=== PATIENT | male | born 1940 | race African-American/Black ===

== ENCOUNTER → 2016-07-24 | Outpatient (CLI) | payer OTHER ==
[~2016-07-24] MED LIST: LISI-285 PO; SIMV-8; TAMS0.4C36 PO
[2016-07-24 12:12] LABS: Basophils # (auto) 0 uL; Basophils % (auto) 0.5 % (0.0-2.0); Eosinophils # (auto) 0.2 uL; Eosinophils % (auto) 3.5 % (0.0-7.0); Hematocrit 40.3 % (41.0-53.0); Hemoglobin 12.8 g/dL (13.5-17.5); Lymphocytes # (auto) 2.3 uL; Lymphocytes % (auto) 41.5 % (10.0-50.0); Mean Corpuscular Hemoglobin 27.5 pg (28.0-32.0); Mean Corpuscular Hgb Conc. 31.9 g/dL (32.0-36.0); Mean Corpuscular Volume 86.2 fL (80.0-100.0); Mean Platelet Volume 8.4 fL (7.4-10.4); Monocytes # (auto) 0.6 uL; Monocytes % (auto) 10.8 % (0.0-12.0); Neutrophils # (auto) 2.4 uL; Neutrophils % (auto) 43.7 % (37.0-80.0); Platelet Count (auto) 344 10^3/uL (140-450); Red Cell Distribution Width 14.6 % (11.6-16.0); White Blood Cell 5.5 10^3/uL (4.4-10.8)
[2016-07-24 12:41] LABS: Urine Bilirubin Negative (Negative); Urine Blood Negative /uL (Negative); Urine Color Yellow (Yellow); Urine Glucose Normal (Normal); Urine Ketone Negative (Negative); Urine Nitrite Negative (Negative); Urine RBC <1 /hpf (0 - 3); Urine Squamous Epithelial Cell FEW /hpf (<5); Urine Urobilinogen Normal (Negative); Urine pH 5.5 (5.0-8.0)
[2016-07-24 12:43] LABS: Albumin 3.7 g/dL (3.4-5.0); BUN/Creatinine Ratio 13.1; Bilirubin, Total 0.4 mg/dL (0.2-1.0); Calcium 9.3 mg/dL (8.5-10.1); Potassium 3.5 mmol/L (3.5-5.1); Total Protein 7.9 g/dL (6.4-8.2)
== END | disposition home or self-care (01) ==
LOC: LAB 10:59
DX: I10 Essential (primary) hypertension (principal); Z12.5 Encounter for screening for malignant neoplasm of prostate; Z12.11 Encounter for screening for malignant neoplasm of colon
CPT/HCPCS: 36415; 80053; 80061; 81001; 84443; 85025; 85652

== ENCOUNTER → 2016-08-01 | Outpatient (CLI) | payer OTHER ==
[~2016-08-01] MED LIST changes: +ASPI81TA27 PO
[2016-08-01 10:37] LABS: INR 0.97 (0.9-1.15)
[2016-08-01 10:44] LABS: Basophils # (auto) 0 uL; Basophils % (auto) 0.5 % (0.0-2.0); Eosinophils # (auto) 0.2 uL; Eosinophils % (auto) 3.6 % (0.0-7.0); Hematocrit 40.3 % (41.0-53.0); Hemoglobin 12.7 g/dL (13.5-17.5); Lymphocytes # (auto) 2.1 uL; Lymphocytes % (auto) 40.2 % (10.0-50.0); Mean Corpuscular Hemoglobin 27.3 pg (28.0-32.0); Mean Corpuscular Hgb Conc. 31.4 g/dL (32.0-36.0); Mean Corpuscular Volume 86.9 fL (80.0-100.0); Mean Platelet Volume 8.4 fL (7.4-10.4); Monocytes # (auto) 0.6 uL; Monocytes % (auto) 11.9 % (0.0-12.0); Neutrophils # (auto) 2.3 uL; Neutrophils % (auto) 43.8 % (37.0-80.0); Platelet Count (auto) 398 10^3/uL (140-450); Red Cell Distribution Width 14.7 % (11.6-16.0); White Blood Cell 5.3 10^3/uL (4.4-10.8)
== END | disposition home or self-care (01) ==
LOC: LAB 09:13
PROVIDERS: ATTEND Internal Medicine Gastroenterology
DX: Z01.812 Encounter for preprocedural laboratory examination (principal)
CPT/HCPCS: 36415; 85025; 85610; 85730

== ENCOUNTER → 2016-08-05 | Day surgery (SDC) | payer OTHER ==
[~2016-08-05] VITALS: Ht 175.3 cm; Wt 95.3 kg
[~2016-08-05] MED LIST changes: +EPINEPHrine HCL 1 MG/10 ML SYRG ONE; +SODIUM CHLORIDE LOCK 10 ML ONE; -TAMS0.4C36 PO; +diphenhdrAMINE HCL 50 MG/1 ML VL ONE
[2016-08-05] MEDS: MIDAZOLAM HCL 5 MG/ML-1ML VIAL ONE ×2 (10:47→10:59)
[2016-08-05] MEDS: fentaNYL CITRATE 100 MCG/2 ML VL ONE ×2 (10:47→10:59)
[2016-08-05 11:40] VITALS: BP 135/72
== END | disposition home or self-care (01) ==
LOC: GI 08:40
PROVIDERS: ATTEND Internal Medicine Gastroenterology
DX: Z12.11 Encounter for screening for malignant neoplasm of colon (principal); K63.5 Polyp of colon; K57.30 Diverticulosis of large intestine without perforation or abscess without bleeding; K64.8 Other hemorrhoids
CPT/HCPCS: 45380; 45381; J2250

== ENCOUNTER → 2016-08-20 | Outpatient (CLI) | payer OTHER ==
[~2016-08-20] MED LIST changes: -EPINEPHrine HCL 1 MG/10 ML SYRG ONE; -SODIUM CHLORIDE LOCK 10 ML ONE; -diphenhdrAMINE HCL 50 MG/1 ML VL ONE
== END | disposition home or self-care (01) ==
LOC: XY 08:54
PROVIDERS: ATTEND Internal Medicine Cardiovascular Disease
DX: R07.9 Chest pain, unspecified (principal)
CPT/HCPCS: 78452; 93017; 93306; 96374; A9500

== ENCOUNTER → 2016-09-12 | Outpatient (CLI) | payer OTHER | END | disposition home or self-care (01) | LOC: LAB 12:01 | DX: K76.89 Other specified diseases of liver (principal) | CPT/HCPCS: 36415; 82565; 84520 ==

== ENCOUNTER 2017-02-12 08:37 | Emergency (ER) | payer OTHER ==
[~2017-02-12] VITALS: Ht 175.3 cm; Wt 96.2 kg
[2017-02-12] MEDS ORDERED: SODIUM CHLORIDE 0.9% 1,000 ML IVB ONE (10:17)
[2017-02-12 10:21] LABS: Basophils # (auto) 0 uL; Basophils % (auto) 0.5 % (0.0-2.0); CONDITION Y; Eosinophils # (auto) 0.2 uL; Eosinophils % (auto) 5.2 % (0.0-7.0); Hematocrit 36.1 % (41.0-53.0); Hemoglobin 12.2 g/dL (13.5-17.5); Lymphocytes # (auto) 1.9 uL; Lymphocytes % (auto) 40.8 % (10.0-50.0); Mean Corpuscular Hemoglobin 28.7 pg (28.0-32.0); Mean Corpuscular Hgb Conc. 33.8 g/dL (32.0-36.0); Monocytes # (auto) 0.7 uL; Monocytes % (auto) 14.3 % (0.0-12.0); Neutrophils # (auto) 1.8 uL; Neutrophils % (auto) 39.2 % (37.0-80.0); Platelet Count (auto) 306 10^3/uL (140-450); Red Cell Distribution Width 14.8 % (11.6-16.0); White Blood Cell 4.7 10^3/uL (4.4-10.8)
[2017-02-12 10:47] LABS: Albumin 3.5 g/dL (3.4-5.0); BUN/Creatinine Ratio 13.1; Calcium 8.8 mg/dL (8.5-10.1); Potassium 3.6 mmol/L (3.5-5.1)
[2017-02-12 10:50] LABS: Bilirubin, Total 0.4 mg/dL (0.2-1.0); Total Protein 7.4 g/dL (6.4-8.2)
[2017-02-12 11:20] VITALS: BP 122/75
[2017-02-12 12:19] LABS: Magnesium 2.5 mg/dL (1.6-2.6)
== END 2017-02-12 13:39 | disposition home or self-care (01) ==
LOC: ER 08:37
DX: K62.5 Hemorrhage of anus and rectum (principal); K57.30 Diverticulosis of large intestine without perforation or abscess without bleeding; K59.01 Slow transit constipation; E78.5 Hyperlipidemia, unspecified; I10 Essential (primary) hypertension
CPT/HCPCS: 36415; 71020; 74176; 80053; 82962; 83690; 83735; 84443; 85025; 96360

== ENCOUNTER → 2017-05-19 | Outpatient (CLI) | payer OTHER ==
[2017-05-19 13:00] LABS: BUN/Creatinine Ratio 13.2; Calcium 9.1 mg/dL (8.5-10.1); Potassium 4.1 mmol/L (3.5-5.1)
== END | disposition home or self-care (01) ==
LOC: LAB 11:16
PROVIDERS: ATTEND Internal Medicine
DX: I12.9 Hypertensive chronic kidney disease with stage 1 through stage 4 chronic kidney disease, or unspecified chronic kidney disease (principal); N18.3 Chronic kidney disease, stage 3 (moderate); N40.0 Benign prostatic hyperplasia without lower urinary tract symptoms
CPT/HCPCS: 36415; 80048; 83970; 84153; 84550

== ENCOUNTER → 2017-12-08 | Outpatient (CLI) | payer OTHER ==
[2017-12-08 10:38] LABS: Basophils # (auto) 0 uL; Basophils % (auto) 0.8 % (0.0-2.0); Eosinophils # (auto) 0.3 uL; Eosinophils % (auto) 5.1 % (0.0-7.0); Hematocrit 37.9 % (41.0-53.0); Hemoglobin 12.6 g/dL (13.5-17.5); Lymphocytes # (auto) 2.5 uL; Lymphocytes % (auto) 43.5 % (10.0-50.0); Mean Corpuscular Hemoglobin 28.3 pg (28.0-32.0); Mean Corpuscular Hgb Conc. 33.1 g/dL (32.0-36.0); Mean Corpuscular Volume 85.5 fL (80.0-100.0); Monocytes # (auto) 0.6 uL; Monocytes % (auto) 10.8 % (0.0-12.0); Neutrophils # (auto) 2.3 uL; Neutrophils % (auto) 39.8 % (37.0-80.0); Platelet Count (auto) 328 10^3/uL (140-450); Red Blood Cells 4.44 10^6/uL (4.5-5.90); Red Cell Distribution Width 14.9 % (11.8-14.3); White Blood Cell 5.9 10^3/uL (4.4-10.8)
[2017-12-08 10:47] LABS: Urine Bacteria FEW /hpf (None Seen); Urine Blood Negative /uL (Negative); Urine Mucus FEW (None Seen); Urine Specific Gravity 1.021 (1.001-1.035); Urine WBC 7 /hpf (0 - 3)
[2017-12-08 11:38] LABS: Albumin 3.9 g/dL (3.4-5.0); BUN/Creatinine Ratio 13.6; Bilirubin, Total 0.5 mg/dL (0.2-1.0); Calcium 9.6 mg/dL (8.5-10.1); Potassium 3.7 mmol/L (3.5-5.1); Total Protein 8.4 g/dL (6.4-8.2); Uric Acid 9.5 mg/dL (3.5-7.2)
== END | disposition home or self-care (01) ==
LOC: LAB 10:09
PROVIDERS: ATTEND Internal Medicine
DX: E78.00 Pure hypercholesterolemia, unspecified (principal); I12.9 Hypertensive chronic kidney disease with stage 1 through stage 4 chronic kidney disease, or unspecified chronic kidney disease; N18.3 Chronic kidney disease, stage 3 (moderate); E78.5 Hyperlipidemia, unspecified
CPT/HCPCS: 36415; 80053; 80061; 81001; 82043; 82785; 84439; 84443; 84550; 85025; 85652

== ENCOUNTER 2018-01-14 08:01 | Emergency (ER) | payer OTHER ==
[~2018-01-14] VITALS: Ht 175.3 cm; Wt 97.5 kg
[2018-01-14 08:07] VITALS: BP 151/88
[2018-01-14 09:17] LABS: Basophils # (auto) 0 uL; Basophils % (auto) 0.6 % (0.0-2.0); Eosinophils # (auto) 0.4 uL; Eosinophils % (auto) 6.5 % (0.0-7.0); Hematocrit 38.5 % (41.0-53.0); Hemoglobin 12.6 g/dL (13.5-17.5); Lymphocytes # (auto) 2.9 uL; Lymphocytes % (auto) 44.3 % (10.0-50.0); Mean Corpuscular Hemoglobin 28.2 pg (28.0-32.0); Mean Corpuscular Hgb Conc. 32.6 g/dL (32.0-36.0); Mean Corpuscular Volume 86.5 fL (80.0-100.0); Monocytes # (auto) 0.8 uL; Monocytes % (auto) 12.6 % (0.0-12.0); Neutrophils # (auto) 2.4 uL; Nucleated Red Blood Cells % 0.1 %; Platelet Count (auto) 325 10^3/uL (140-450); Red Blood Cells 4.46 10^6/uL (4.5-5.90); White Blood Cell 6.6 10^3/uL (4.4-10.8)
[2018-01-14 09:34] LABS: Albumin 3.7 g/dL (3.4-5.0); Bilirubin, Total 0.4 mg/dL (0.2-1.0); Calcium 8.7 mg/dL (8.5-10.1); Potassium 3.9 mmol/L (3.5-5.1); Total Protein 8.4 g/dL (6.4-8.2)
== END 2018-01-14 09:57 | disposition home or self-care (01) ==
LOC: ER 08:03
DX: J40 Bronchitis, not specified as acute or chronic (principal); J32.9 Chronic sinusitis, unspecified; D64.9 Anemia, unspecified; I10 Essential (primary) hypertension; E78.5 Hyperlipidemia, unspecified
CPT/HCPCS: 36415; 71046; 80053; 85025; 93005

== ENCOUNTER → 2018-05-19 | Outpatient (CLI) | payer OTHER | END | disposition home or self-care (01) | LOC: LAB 11:47 | PROVIDERS: ATTEND Internal Medicine | DX: D64.9 Anemia, unspecified (principal) | CPT/HCPCS: 82270 ==

== ENCOUNTER → 2018-05-27 | Outpatient (CLI) | payer OTHER ==
[2018-05-27 11:20] LABS: Basophils # (auto) 0 uL; Basophils % (auto) 0.2 % (0.0-2.0); Eosinophils # (auto) 0.3 uL; Eosinophils % (auto) 5.6 % (0.0-7.0); Hematocrit 38.7 % (41.0-53.0); Hemoglobin 12.6 g/dL (13.5-17.5); Mean Corpuscular Hemoglobin 27.6 pg (28.0-32.0); Mean Corpuscular Hgb Conc. 32.5 g/dL (32.0-36.0); Monocytes # (auto) 0.7 uL; Monocytes % (auto) 13.3 % (0.0-12.0); Neutrophils # (auto) 2.4 uL; Neutrophils % (auto) 43.9 % (37.0-80.0); Platelet Count (auto) 326 10^3/uL (140-450); Red Blood Cells 4.56 10^6/uL (4.5-5.90); Red Cell Distribution Width 15.2 % (11.8-14.3); White Blood Cell 5.4 10^3/uL (4.4-10.8)
[2018-05-27 11:37] LABS: Albumin 3.7 g/dL (3.4-5.0); Calcium 9.1 mg/dL (8.5-10.1); Potassium 3.4 mmol/L (3.5-5.1); Uric Acid 8.3 mg/dL (3.5-7.2)
[2018-05-27 11:41] LABS: BUN/Creatinine Ratio 12.5; Bilirubin, Total 0.4 mg/dL (0.2-1.0); Total Protein 8.3 g/dL (6.4-8.2)
== END | disposition home or self-care (01) ==
LOC: LAB 10:46
PROVIDERS: ATTEND Internal Medicine
DX: N40.0 Benign prostatic hyperplasia without lower urinary tract symptoms (principal); K76.0 Fatty (change of) liver, not elsewhere classified; I12.9 Hypertensive chronic kidney disease with stage 1 through stage 4 chronic kidney disease, or unspecified chronic kidney disease; N18.3 Chronic kidney disease, stage 3 (moderate)
CPT/HCPCS: 36415; 80053; 84153; 84550; 85025

== ENCOUNTER → 2019-07-08 | Outpatient (CLI) | payer OTHER ==
[~2019-07-08] MED LIST changes: +ASPI-404 PO; -ASPI81TA27 PO
[2019-07-08 11:09] LABS: Basophils # (auto) 0 uL; Basophils % (auto) 0.3 % (0.0-2.0); Eosinophils # (auto) 0.2 uL; Eosinophils % (auto) 4.6 % (0.0-7.0); Hemoglobin 12.7 g/dL (13.5-17.5); Lymphocytes # (auto) 2.2 uL; Lymphocytes % (auto) 44.8 % (10.0-50.0); Mean Corpuscular Hgb Conc. 33.3 g/dL (32.0-36.0); Mean Corpuscular Volume 84.1 fL (80.0-100.0); Monocytes # (auto) 0.5 uL; Monocytes % (auto) 10.5 % (0.0-12.0); Neutrophils % (auto) 39.8 % (37.0-80.0); Nucleated Red Blood Cells % 0.1 %; Platelet Count (auto) 363 10^3/uL (140-450); Red Blood Cells 4.52 10^6/uL (4.5-5.90); Red Cell Distribution Width 15.6 % (11.8-14.3)
[2019-07-08 11:31] LABS: Urine Bacteria NONE SEEN /hpf (None Seen); Urine Blood Negative /uL (Negative); Urine Specific Gravity 1.007 (1.001-1.035); Urine WBC 1 /hpf (0 - 3)
[2019-07-08 11:51] LABS: Potassium 3.8 mmol/L (3.5-5.1)
[2019-07-08 11:59] LABS: Albumin 3.9 g/dL (3.4-5.0); BUN/Creatinine Ratio 13.5; Bilirubin, Total 0.4 mg/dL (0.2-1.0); Calcium 9.4 mg/dL (8.5-10.1); Magnesium 2.7 mg/dL (1.6-2.6); Total Protein 8.4 g/dL (6.4-8.2)
== END | disposition home or self-care (01) ==
LOC: LAB 10:46
PROVIDERS: ATTEND Internal Medicine
DX: I10 Essential (primary) hypertension (principal); R35.1 Nocturia
CPT/HCPCS: 36415; 80053; 80061; 81001; 82043; 83036; 83735; 84439; 84443; 85025; 85652

== ENCOUNTER 2019-11-29 07:30 | Emergency (ER) | payer OTHER ==
[~2019-11-29] VITALS: Ht 175.3 cm; Wt 94.8 kg
[2019-11-29] MEDS ORDERED: AMLO5TAB15 PO (08:03)
[2019-11-29] MEDS ORDERED: LOSA-69 PO (08:03)
[2019-11-29] MEDS ORDERED: HCTZ25T PO (08:03)
[2019-11-29 08:30] LABS: Basophils # (auto) 0 10 ^3/uL (0-0.2); Basophils % (auto) 0.4 % (0.0-2.0); Eosinophils # (auto) 0.6 10 ^3/uL (0-0.8); Mean Corpuscular Volume 82.8 fL (80.0-100.0); Monocytes # (auto) 0.7 10 ^3/uL (0-1.3); Nucleated Red Blood Cells % 0.1 %; Red Cell Distribution Width 15.5 % (11.8-14.3)
[2019-11-29 08:31] LABS: Eosinophils % (auto) 10.9 % (0.0-7.0); Hematocrit 34.9 % (41.0-53.0); Hemoglobin 11.6 g/dL (13.5-17.5); Lymphocytes % (auto) 37.4 % (10.0-50.0); Mean Corpuscular Hemoglobin 27.5 pg (28.0-32.0); Mean Corpuscular Hgb Conc. 33.2 g/dL (32.0-36.0); Monocytes % (auto) 13.1 % (0.0-12.0); Neutrophils % (auto) 38.2 % (37.0-80.0); Platelet Count (auto) 318 10^3/uL (140-450); Red Blood Cells 4.22 10^6/uL (4.5-5.90); White Blood Cell 5.3 10^3/uL (4.4-10.8)
[2019-11-29 08:39] LABS: Albumin 3.6 g/dL (3.4-5.0); Calcium 8.7 mg/dL (8.5-10.1)
[2019-11-29 08:43] LABS: BUN/Creatinine Ratio 10.1; Bilirubin, Total 0.2 mg/dL (0.2-1.0); Total Protein 8.1 g/dL (6.4-8.2)
[2019-11-29 08:46] LABS: Potassium 2.9 mmol/L (3.5-5.1)
[2019-11-29] MEDS ORDERED: POTASSIUM EFFERVESENT TAB 25 MEQ PO ONE (09:00)
[2019-11-29] MEDS ORDERED: cloNIDine HCL 0.1 MG TAB PO ONE (09:00)
[2019-11-29] MEDS ORDERED: cefTRIAXone 1GM/50ML D5W 50 ML IV ONE (10:00)
[2019-11-29 10:13] LABS: Urine Bacteria FEW /hpf (None Seen); Urine Blood Negative /uL (Negative); Urine Specific Gravity 1.003 (1.001-1.035); Urine WBC 4 /hpf (0 - 3)
[2019-11-29 10:18] VITALS: BP 143/74
== END 2019-11-29 10:47 | disposition home or self-care (01) ==
LOC: ER 07:30
DX: I10 Essential (primary) hypertension (principal); E87.6 Hypokalemia; J40 Bronchitis, not specified as acute or chronic; E78.5 Hyperlipidemia, unspecified
CPT/HCPCS: 36415; 71046; 80053; 81001; 83880; 84484; 85025; 93005; 96365; 99285; J0696; 96367

== ENCOUNTER → 2019-12-03 | Outpatient (CLI) | payer OTHER ==
[~2019-12-03] MED LIST changes: +AMLO5TAB15 PO; +HCTZ25T PO; -LISI-285 PO; +LOSA-69 PO
== END | disposition home or self-care (01) ==
LOC: LAB 11:55
PROVIDERS: ATTEND Internal Medicine
DX: E78.6 Lipoprotein deficiency (principal); I10 Essential (primary) hypertension
CPT/HCPCS: 36415; 84132

== ENCOUNTER → 2019-12-06 | Emergency (ER) | payer OTHER ==
[~2019-12-06] VITALS: Ht 175.3 cm; Wt 95.3 kg
[~2019-12-06] MED LIST changes: +methylPREDNISolone SOD SUCC 125 MG/2 ML VL IM ONE
[2019-12-06 05:35] VITALS: BP 143/61
== END | disposition home or self-care (01) ==
LOC: ER 02:59
DX: J40 Bronchitis, not specified as acute or chronic (principal); I10 Essential (primary) hypertension; E78.5 Hyperlipidemia, unspecified
CPT/HCPCS: 71046; 96372; 99283; J2930

== ENCOUNTER → 2020-02-24 | Outpatient (CLI) | payer OTHER ==
[~2020-02-24] MED LIST changes: -ASPI-404 PO; +ASPI-543 PO; -methylPREDNISolone SOD SUCC 125 MG/2 ML VL IM ONE
== END | disposition home or self-care (01) ==
LOC: XYW 09:41
PROVIDERS: ATTEND Internal Medicine
DX: I07.1 Rheumatic tricuspid insufficiency (principal); I10 Essential (primary) hypertension
CPT/HCPCS: 93306

== ENCOUNTER → 2020-03-07 | Outpatient (CLI) | payer OTHER ==
[2020-03-07 09:19] LABS: Basophils # (auto) 0 10 ^3/uL (0-0.2); Basophils % (auto) 0.3 % (0.0-2.0); Eosinophils # (auto) 0.3 10 ^3/uL (0-0.8); Eosinophils % (auto) 6.3 % (0.0-7.0); Hemoglobin 11.2 g/dL (13.5-17.5); Lymphocytes % (auto) 42.4 % (10.0-50.0); Mean Corpuscular Hemoglobin 27.3 pg (28.0-32.0); Mean Corpuscular Hgb Conc. 33.1 g/dL (32.0-36.0); Mean Corpuscular Volume 82.6 fL (80.0-100.0); Monocytes # (auto) 0.6 10 ^3/uL (0-1.3); Monocytes % (auto) 13.2 % (0.0-12.0); Neutrophils # (auto) 1.8 10 ^3/uL (1.6-8.6); Neutrophils % (auto) 37.8 % (37.0-80.0); Nucleated Red Blood Cells % 0.1 %; Platelet Count (auto) 331 10^3/uL (140-450); Red Blood Cells 4.12 10^6/uL (4.5-5.90); Red Cell Distribution Width 15.3 % (11.8-14.3); White Blood Cell 4.7 10^3/uL (4.4-10.8)
[2020-03-07 09:51] LABS: Albumin 3.7 g/dL (3.4-5.0); Calcium 9.2 mg/dL (8.5-10.1); Potassium 3.6 mmol/L (3.5-5.1)
[2020-03-07 09:55] LABS: BUN/Creatinine Ratio 16.4; Bilirubin, Total 0.4 mg/dL (0.2-1.0); Total Protein 7.9 g/dL (6.4-8.2); Uric Acid 8.1 mg/dL (3.5-7.2)
[2020-03-07 10:02] LABS: Prostate Specific Antigen 1.37 ng/mL (0.0-4.0)
== END | disposition home or self-care (01) ==
LOC: LAB 09:02
PROVIDERS: ATTEND Internal Medicine
DX: Z12.5 Encounter for screening for malignant neoplasm of prostate (principal); I12.9 Hypertensive chronic kidney disease with stage 1 through stage 4 chronic kidney disease, or unspecified chronic kidney disease; N18.3 Chronic kidney disease, stage 3 (moderate); E87.6 Hypokalemia; D64.9 Anemia, unspecified
CPT/HCPCS: 36415; 80053; 82607; 83540; 83615; 84153; 84550; 85025

== ENCOUNTER → 2020-11-06 | Outpatient (CLI) | payer OTHER ==
[~2020-11-06] MED LIST changes: +AMLO-489 PO; -AMLO5TAB15 PO; -HCTZ25T PO; +HYDR25TA5 PO
[2020-11-06 12:34] LABS: Basophils # (auto) 0 10 ^3/uL (0-0.2); Basophils % (auto) 0.4 % (0.0-2.0); Eosinophils # (auto) 0.3 10 ^3/uL (0-0.8); Eosinophils % (auto) 4.9 % (0.0-7.0); Hematocrit 34.3 % (41.0-53.0); Hemoglobin 11.8 g/dL (13.5-17.5); Lymphocytes # (auto) 2.3 10 ^3/uL (0.4-5.4); Lymphocytes % (auto) 38.9 % (10.0-50.0); Mean Corpuscular Hemoglobin 29.1 pg (28.0-32.0); Mean Corpuscular Hgb Conc. 34.5 g/dL (32.0-36.0); Mean Corpuscular Volume 84.4 fL (80.0-100.0); Monocytes # (auto) 0.7 10 ^3/uL (0-1.3); Monocytes % (auto) 12.4 % (0.0-12.0); Neutrophils # (auto) 2.6 10 ^3/uL (1.6-8.6); Neutrophils % (auto) 43.4 % (37.0-80.0); Nucleated Red Blood Cells % 0.1 %; Platelet Count (auto) 346 10^3/uL (140-450); Red Blood Cells 4.06 10^6/uL (4.5-5.90); Red Cell Distribution Width 14.6 % (11.8-14.3); White Blood Cell 5.9 10^3/uL (4.4-10.8)
[2020-11-06 12:36] LABS: Urine Bacteria NONE SEEN /hpf (None Seen); Urine Blood Negative /uL (Negative); Urine Specific Gravity 1.019 (1.001-1.035); Urine WBC 3 /hpf (0 - 3)
[2020-11-06 13:06] LABS: Potassium 3.5 mmol/L (3.5-5.1)
[2020-11-06 13:40] LABS: Albumin 3.8 g/dL (3.4-5.0); Bilirubin, Total 0.4 mg/dL (0.2-1.0); Calcium 9.4 mg/dL (8.5-10.1); Total Protein 8.7 g/dL (6.4-8.2)
== END | disposition home or self-care (01) ==
LOC: LAB 12:00
PROVIDERS: ATTEND Internal Medicine
DX: I10 Essential (primary) hypertension (principal)
CPT/HCPCS: 36415; 80053; 80061; 81001; 84439; 84443; 85025; 85652

== ENCOUNTER → 2021-01-12 | Outpatient (CLI) | payer OTHER ==
[2021-01-12 10:17] LABS: Basophils # (auto) 0 10 ^3/uL (0-0.2); Basophils % (auto) 0.7 % (0.0-2.0); Eosinophils # (auto) 0.2 10 ^3/uL (0-0.8); Eosinophils % (auto) 4.2 % (0.0-7.0); Hemoglobin 12.7 g/dL (13.5-17.5); Lymphocytes # (auto) 2.3 10 ^3/uL (0.4-5.4); Lymphocytes % (auto) 43.8 % (10.0-50.0); Mean Corpuscular Hgb Conc. 34.3 g/dL (32.0-36.0); Mean Corpuscular Volume 84.5 fL (80.0-100.0); Monocytes # (auto) 0.7 10 ^3/uL (0-1.3); Neutrophils % (auto) 38.3 % (37.0-80.0); Nucleated Red Blood Cells % 0.1 %; Red Blood Cells 4.38 10^6/uL (4.5-5.90); Red Cell Distribution Width 15.6 % (11.8-14.3); White Blood Cell 5.3 10^3/uL (4.4-10.8)
[2021-01-12 10:37] LABS: Potassium 3.4 mmol/L (3.5-5.1)
[2021-01-12 10:51] LABS: Albumin 3.8 g/dL (3.4-5.0); BUN/Creatinine Ratio 10.2; Bilirubin, Total 0.7 mg/dL (0.2-1.0); Calcium 9.1 mg/dL (8.5-10.1); Total Protein 8.9 g/dL (6.4-8.2); Uric Acid 8.6 mg/dL (3.5-7.2)
[2021-01-13 08:06] LABS: Immunoglobulin G, Serum 1419 mg/dL (603-1613)
== END | disposition home or self-care (01) ==
LOC: LAB 09:31
PROVIDERS: ATTEND Internal Medicine
DX: I10 Essential (primary) hypertension (principal); D64.9 Anemia, unspecified
CPT/HCPCS: 36415; 80053; 82607; 82784; 83540; 83615; 84550; 85025; 86334

== ENCOUNTER → 2021-05-15 | Outpatient (CLI) | payer OTHER | END | disposition home or self-care (01) | LOC: XYW 09:57 | PROVIDERS: ATTEND Internal Medicine | DX: I07.1 Rheumatic tricuspid insufficiency (principal); I10 Essential (primary) hypertension | CPT/HCPCS: 93306 ==

== ENCOUNTER → 2021-08-21 | Outpatient (CLI) | payer OTHER ==
[~2021-08-21] VITALS: Ht 175.3 cm; Wt 95.3 kg
[~2021-08-21] MED LIST changes: +ADENOSINE 80 MG in GIVE UN-DILUTED 0 ML IV STA
[2021-08-21 08:54] VITALS: BP 137/76
== END | disposition home or self-care (01) ==
LOC: XY 07:12
PROVIDERS: ATTEND Internal Medicine
DX: I20.9 Angina pectoris, unspecified (principal); E78.5 Hyperlipidemia, unspecified
CPT/HCPCS: 78452; 93017; A9500; J0153

== ENCOUNTER 2021-11-09 06:41 | Emergency (ER) | payer OTHER ==
[~2021-11-09] VITALS: Ht 175.3 cm; Wt 92.5 kg
[~2021-11-09 06:41] MED LIST changes: -ADENOSINE 80 MG in GIVE UN-DILUTED 0 ML IV STA
[2021-11-09 07:30] VITALS: BP 167/63
[2021-11-09] MEDS ORDERED: ACETAMINOPHEN 325 MG TAB PO ONE ×2 (08:15)
[2021-11-09] MEDS ORDERED: ACET-1080 PO (08:46)
== END 2021-11-09 08:51 | disposition home or self-care (01) ==
LOC: ER 06:41
DX: R51.9 Headache, unspecified (principal); I10 Essential (primary) hypertension; E78.5 Hyperlipidemia, unspecified; W18.30XA Fall on same level, unspecified, initial encounter; Y93.89 Activity, other specified; Y92.9 Unspecified place or not applicable; Y99.8 Other external cause status
CPT/HCPCS: 70450

== ENCOUNTER → 2021-11-22 | Outpatient (CLI) | payer OTHER ==
[~2021-11-22] MED LIST changes: +ACET-1080 PO
[2021-11-22 12:06] LABS: Basophils # (auto) 0 10 ^3/uL (0-0.2); Basophils % (auto) 0.3 % (0.0-2.0); Eosinophils # (auto) 0.2 10 ^3/uL (0-0.8); Eosinophils % (auto) 5.2 % (0.0-7.0); Hematocrit 35.6 % (41.0-53.0); Hemoglobin 11.9 g/dL (13.5-17.5); Lymphocytes # (auto) 2.1 10 ^3/uL (0.4-5.4); Lymphocytes % (auto) 44.7 % (10.0-50.0); Mean Corpuscular Hemoglobin 28.8 pg (28.0-32.0); Mean Corpuscular Hgb Conc. 33.4 g/dL (32.0-36.0); Mean Corpuscular Volume 86.4 fL (80.0-100.0); Monocytes # (auto) 0.6 10 ^3/uL (0-1.3); Neutrophils # (auto) 1.8 10 ^3/uL (1.6-8.6); Neutrophils % (auto) 37.8 % (37.0-80.0); Nucleated Red Blood Cells % 0.1 %; Red Blood Cells 4.13 10^6/uL (4.5-5.90); Red Cell Distribution Width 14.2 % (11.8-14.3); White Blood Cell 4.7 10^3/uL (4.4-10.8)
[2021-11-22 12:19] LABS: Urine Bacteria NONE SEEN /hpf (None Seen); Urine Blood Negative /uL (Negative); Urine Specific Gravity 1.018 (1.001-1.035); Urine WBC 1 /hpf (0 - 3)
[2021-11-22 12:37] LABS: Albumin 3.7 g/dL (3.4-5.0); Calcium 9.2 mg/dL (8.5-10.1); Potassium 3.2 mmol/L (3.5-5.1)
[2021-11-22 12:42] LABS: BUN/Creatinine Ratio 13.5; Bilirubin, Total 0.5 mg/dL (0.2-1.0); Total Protein 8.4 g/dL (6.4-8.2)
== END | disposition home or self-care (01) ==
LOC: LAB 11:39
PROVIDERS: ATTEND Internal Medicine
DX: I10 Essential (primary) hypertension (principal)
CPT/HCPCS: 36415; 80053; 80061; 81001; 84439; 84443; 85025; 85652

== ENCOUNTER → 2022-03-22 | Outpatient (CLI) | payer OTHER ==
[2022-03-22 10:25] LABS: Basophils # (auto) 0 10 ^3/uL (0-0.2); Basophils % (auto) 0.3 % (0.0-2.0); Eosinophils # (auto) 0.2 10 ^3/uL (0-0.8); Eosinophils % (auto) 4.1 % (0.0-7.0); Hematocrit 36.3 % (41.0-53.0); Hemoglobin 11.7 g/dL (13.5-17.5); Lymphocytes # (auto) 2.1 10 ^3/uL (0.4-5.4); Lymphocytes % (auto) 40.6 % (10.0-50.0); Mean Corpuscular Hemoglobin 28.3 pg (28.0-32.0); Mean Corpuscular Hgb Conc. 32.3 g/dL (32.0-36.0); Mean Corpuscular Volume 87.6 fL (80.0-100.0); Monocytes # (auto) 0.6 10 ^3/uL (0-1.3); Monocytes % (auto) 11.5 % (0.0-12.0); Neutrophils # (auto) 2.3 10 ^3/uL (1.6-8.6); Neutrophils % (auto) 43.5 % (37.0-80.0); Nucleated Red Blood Cells % 0.1 %; Red Blood Cells 4.14 10^6/uL (4.5-5.90); Red Cell Distribution Width 14.8 % (11.8-14.3); White Blood Cell 5.2 10^3/uL (4.4-10.8)
[2022-03-22 10:48] LABS: BUN/Creatinine Ratio 14.9; Calcium 8.8 mg/dL (8.5-10.1); Potassium 4.2 mmol/L (3.5-5.1)
[2022-03-22 10:50] LABS: % Iron Saturation 20.9 % (20-55)
== END | disposition home or self-care (01) ==
LOC: LAB 10:10
PROVIDERS: ATTEND Internal Medicine
DX: I10 Essential (primary) hypertension (principal); D64.9 Anemia, unspecified; K64.8 Other hemorrhoids
CPT/HCPCS: 36415; 80048; 82607; 83540; 83550; 83615; 85025

== ENCOUNTER 2022-05-09 07:46 | Inpatient (IN) | payer OTHER ==
[~2022-05-09] VITALS: Ht 175.3 cm; Wt 93.0 kg
[2022-05-09 08:17] LABS: Basophils # (auto) 0 10 ^3/uL (0-0.2); Basophils % (auto) 0.1 % (0.0-2.0); Eosinophils # (auto) 0.3 10 ^3/uL (0-0.8); Eosinophils % (auto) 4.6 % (0.0-7.0); Hematocrit 37.5 % (41.0-53.0); Hemoglobin 12.4 g/dL (13.5-17.5); Lymphocytes # (auto) 2.7 10 ^3/uL (0.4-5.4); Lymphocytes % (auto) 42.6 % (10.0-50.0); Mean Corpuscular Hemoglobin 29.3 pg (28.0-32.0); Monocytes # (auto) 0.7 10 ^3/uL (0-1.3); Monocytes % (auto) 11.2 % (0.0-12.0); Neutrophils # (auto) 2.7 10 ^3/uL (1.6-8.6); Neutrophils % (auto) 41.5 % (37.0-80.0); Red Blood Cells 4.21 10^6/uL (4.5-5.90); Red Cell Distribution Width 14.1 % (11.8-14.3); White Blood Cell 6.4 10^3/uL (4.4-10.8)
[2022-05-09] MEDS ORDERED: ASPirin 325 MG TAB PO ONE (08:30)
[2022-05-09 08:36] LABS: Urine Bacteria NONE SEEN /hpf (None Seen); Urine Blood Negative /uL (Negative); Urine Specific Gravity 1.023 (1.001-1.035); Urine WBC 1 /hpf (0 - 3)
[2022-05-09 08:45] LABS: Albumin 3.7 g/dL (3.4-5.0); Calcium 8.9 mg/dL (8.5-10.1); Potassium 4.7 mmol/L (3.5-5.1)
[2022-05-09 08:47] LABS: BUN/Creatinine Ratio 12.5; Bilirubin, Total 0.4 mg/dL (0.2-1.0); Total Protein 7.7 g/dL (6.4-8.2)
[2022-05-09] MEDS ORDERED: NITROGLYCERIN 0.4 MG SL TAB SL ONE (10:15)
[2022-05-09] MEDS ORDERED: MORPHINE SULFATE 4 MG/ML SYR/VIAL IV ONE (10:15)
[2022-05-09] MEDS ORDERED: ONDANSETRON HCL 4 MG/2 ML VIAL IV ONE (10:15)
[2022-05-09] MEDS ORDERED: ACETAMINOPHEN 325 MG TAB PO PRN (10:30)
[2022-05-09] MEDS ORDERED: NITROGLYCERIN 0.4 MG SL TAB SL PRN (10:30)
[2022-05-09] MEDS ORDERED: MORPHINE SULFATE INJ 2 MG/ml SYRG IV PRN (10:30)
[2022-05-09] MEDS: SODIUM CHLORIDE 0.9% 1,000 ML IV SCH (11:30)
[2022-05-09 12:47] LABS: Cholesterol 158 mg/dL (< 200)
[2022-05-09 12:49] LABS: HDL Cholesterol 52 mg/dL (40-59); LDL Cholesterol 107 mg/dL (< 100); Triglycerides 93 mg/dL (< 150)
[2022-05-09 22:32] VITALS: BP 159/65
[2022-05-09 23:37] VITALS: BP 132/67
[2022-05-10] MEDS: SODIUM CHLORIDE 0.9% 1,000 ML IV SCH (03:10)
[2022-05-10 05:00] VITALS: BP 137/62
[2022-05-10 05:12] LABS: Basophils # (auto) 0 10 ^3/uL (0-0.2); Basophils % (auto) 0.3 % (0.0-2.0); Eosinophils # (auto) 0.2 10 ^3/uL (0-0.8); Eosinophils % (auto) 3.1 % (0.0-7.0); Hematocrit 37.7 % (41.0-53.0); Hemoglobin 12.5 g/dL (13.5-17.5); Lymphocytes # (auto) 2.3 10 ^3/uL (0.4-5.4); Lymphocytes % (auto) 32.5 % (10.0-50.0); Mean Corpuscular Hemoglobin 29.4 pg (28.0-32.0); Mean Corpuscular Hgb Conc. 33.2 g/dL (32.0-36.0); Mean Corpuscular Volume 88.7 fL (80.0-100.0); Monocytes # (auto) 0.9 10 ^3/uL (0-1.3); Monocytes % (auto) 12.3 % (0.0-12.0); Neutrophils # (auto) 3.6 10 ^3/uL (1.6-8.6); Neutrophils % (auto) 51.8 % (37.0-80.0); Nucleated Red Blood Cells % 0.1 %; Red Blood Cells 4.25 10^6/uL (4.5-5.90); Red Cell Distribution Width 13.8 % (11.8-14.3)
[2022-05-10 05:32] LABS: Albumin 3.3 g/dL (3.4-5.0); Calcium 8.9 mg/dL (8.5-10.1); Potassium 4.6 mmol/L (3.5-5.1)
[2022-05-10 05:37] LABS: BUN/Creatinine Ratio 16.8; Bilirubin, Total 0.3 mg/dL (0.2-1.0); Total Protein 7.6 g/dL (6.4-8.2)
[2022-05-10 08:00] VITALS: BP 155/68
[2022-05-10 09:00] VITALS: BP 155/68
[2022-05-10] MEDS ORDERED: ENOXAPARIN SOD 40 MG/0.4 ML SYRINGE SC SCH (10:00)
[2022-05-10] MEDS ORDERED: ASPirin 81 mg TAB PO SCH (10:00)
[2022-05-10 12:48] VITALS: BP 146/71
== END 2022-05-10 13:39 | disposition home or self-care (01) | DRG 556 ==
LOC: ER 07:46 → TELE 10:21 → TELE-WESTW 21:59
PROVIDERS: ADMIT Nurse Practitioner Family; ATTEND Nurse Practitioner Family
DX: M25.512 Pain in left shoulder (principal); I24.9 Acute ischemic heart disease, unspecified; N17.9 Acute kidney failure, unspecified; D64.9 Anemia, unspecified; E66.01 Morbid (severe) obesity due to excess calories; I10 Essential (primary) hypertension; E78.5 Hyperlipidemia, unspecified; Z20.822 Contact with and (suspected) exposure to COVID-19; Z88.1 Allergy status to other antibiotic agents
CPT/HCPCS: 36415; 71045; 73221; 80053; 80061; 81001; 83036; 84443; 84484; 85025; 85379; 87426; 93005; 93306; 96361; 96374; 96375; G0378; J2405

== ENCOUNTER → 2022-08-15 | Outpatient (CLI) | payer OTHER ==
[2022-08-15 09:52] LABS: Basophils # (auto) 0 10 ^3/uL (0-0.2); Basophils % (auto) 0.4 % (0.0-2.0); Eosinophils # (auto) 0.2 10 ^3/uL (0-0.8); Eosinophils % (auto) 4.5 % (0.0-7.0); Hematocrit 35.4 % (41.0-53.0); Lymphocytes # (auto) 1.9 10 ^3/uL (0.4-5.4); Lymphocytes % (auto) 36.6 % (10.0-50.0); Mean Corpuscular Hemoglobin 30.2 pg (28.0-32.0); Mean Corpuscular Volume 88.9 fL (80.0-100.0); Monocytes # (auto) 0.6 10 ^3/uL (0-1.3); Neutrophils # (auto) 2.4 10 ^3/uL (1.6-8.6); Neutrophils % (auto) 46.5 % (37.0-80.0); Nucleated Red Blood Cells % 0.1 %; Red Blood Cells 3.98 10^6/uL (4.5-5.90); Red Cell Distribution Width 13.5 % (11.8-14.3); White Blood Cell 5.1 10^3/uL (4.4-10.8)
[2022-08-15 10:48] LABS: Albumin 3.8 g/dL (3.4-5.0); BUN/Creatinine Ratio 18.8; Uric Acid 6.7 mg/dL (3.5-7.2)
[2022-08-15 10:50] LABS: Bilirubin, Total 0.2 mg/dL (0.2-1.0)
== END | disposition home or self-care (01) ==
LOC: LAB 09:37
PROVIDERS: ATTEND Internal Medicine
DX: I12.9 Hypertensive chronic kidney disease with stage 1 through stage 4 chronic kidney disease, or unspecified chronic kidney disease (principal); N18.30 Chronic kidney disease, stage 3 unspecified
CPT/HCPCS: 36415; 80053; 84153; 84550; 85025

== ENCOUNTER → 2022-09-02 | Outpatient (CLI) | payer OTHER | END | disposition home or self-care (01) | LOC: LAB 10:30 | PROVIDERS: ATTEND Internal Medicine | DX: D64.9 Anemia, unspecified (principal) | CPT/HCPCS: 82270 ==

== ENCOUNTER → 2023-03-21 | Outpatient (CLI) | payer OTHER ==
[~2023-03-21] MED LIST changes: -AMLO-489 PO; +AMLO1TAB22 PO; -LOSA-69 PO; +LOSA50TA46 PO; -SIMV-8; +SIMV20TA20
[2023-03-21 12:01] LABS: Urine Bacteria NONE SEEN /hpf (None Seen); Urine Blood Negative /uL (Negative); Urine Clarity Clear (Clear); Urine Color Yellow (Yellow); Urine Protein, UAD 1+ (Negative); Urine Specific Gravity 1.017 (1.001-1.035); Urine Urobilinogen Normal (Negative); Urine WBC 1 /hpf (0 - 3); Urine pH 5.5 (5.0-8.0)
[2023-03-21 12:40] LABS: Anion Gap 8 (5-15); Carbon Dioxide 26 mmol/L (20-30); Chloride 105 mmol/L (98-107); Potassium 4.3 mmol/L (3.5-5.1); Sodium 139 mmol/L (136-145)
[2023-03-21 12:41] LABS: Calcium 9.5 mg/dL (8.5-10.1)
[2023-03-21 12:46] LABS: BUN/Creatinine Ratio 11.2 (10.0-20.0); Blood Urea Nitrogen 19 mg/dL (9-23); Glucose 119 mg/dL (74-106)
== END | disposition home or self-care (01) ==
LOC: LAB 11:32
PROVIDERS: ATTEND Internal Medicine
DX: I12.9 Hypertensive chronic kidney disease with stage 1 through stage 4 chronic kidney disease, or unspecified chronic kidney disease (principal); N18.30 Chronic kidney disease, stage 3 unspecified
CPT/HCPCS: 36415; 80048; 81001; 82043

== ENCOUNTER → 2023-03-26 | Day surgery (SDC) | payer OTHER ==
[2023-03-24 09:14] LABS: Basophils # (auto) 0 10 ^3/uL (0-0.2); Basophils % (auto) 0.1 % (0.0-2.0); Eosinophils # (auto) 0.3 10 ^3/uL (0-0.8); Eosinophils % (auto) 4.8 % (0.0-7.0); Hematocrit 36.3 % (41.0-53.0); Lymphocytes # (auto) 2.2 10 ^3/uL (0.4-5.4); Lymphocytes % (auto) 35.7 % (10.0-50.0); Mean Corpuscular Hemoglobin 29.8 pg (28.0-32.0); Mean Corpuscular Hgb Conc. 33.2 g/dL (32.0-36.0); Mean Corpuscular Volume 89.8 fL (80.0-100.0); Monocytes # (auto) 0.7 10 ^3/uL (0-1.3); Monocytes % (auto) 11.3 % (0.0-12.0); Neutrophils % (auto) 48.1 % (37.0-80.0); Nucleated Red Blood Cells % 0.1 %; Red Blood Cells 4.04 10^6/uL (4.5-5.90); Red Cell Distribution Width 13.5 % (11.8-14.3); White Blood Cell 6.2 10^3/uL (4.4-10.8)
[2023-03-24 09:33] LABS: INR 0.98 (0.9-1.15); Partial Thromboplastin Time 26.2 SEC (24.5-34.5); Prothrombin Time 10.3 sec (9.3-11.8)
[2023-03-24 09:48] LABS: Alanine Aminotransferase 18 U/L (7-40); Alkaline Phosphatase 61 U/L (46-116); Anion Gap 10 (5-15); Calcium 9.8 mg/dL (8.5-10.1); Carbon Dioxide 22 mmol/L (20-30); Chloride 108 mmol/L (98-107); Potassium 4.6 mmol/L (3.5-5.1); Sodium 140 mmol/L (136-145)
[2023-03-24 09:51] LABS: Glucose 96 mg/dL (74-106)
[2023-03-24 09:52] LABS: BUN/Creatinine Ratio 13.5 (10.0-20.0); Blood Urea Nitrogen 23 mg/dL (9-23)
[2023-03-24 09:53] LABS: Albumin 4.7 g/dL (3.2-4.8)
[2023-03-24 09:54] LABS: Aspartate Aminotransferase 20 U/L (13-40); Bilirubin, Total 0.3 mg/dL (0.2-1.0); Total Protein 8.2 g/dL (5.7-8.2)
[~2023-03-26] MED LIST changes: +MIDAZOLAM HCL 5 MG/ML-1ML VIAL ONE; +diphenhdrAMINE HCL 50 MG/1 ML VL ONE; +fentaNYL CITRATE 100 MCG/2 ML VL ONE
[2023-03-26 14:21] VITALS: PULSE 76; RESP 14; TEMP 98.7; O2SAT 99
[2023-03-26 14:55] VITALS: BP 114/62; PULSE 68; RESP 17; O2SAT 96
== END | disposition home or self-care (01) ==
LOC: GI 11:59
PROVIDERS: ATTEND Internal Medicine Gastroenterology
DX: Z12.11 Encounter for screening for malignant neoplasm of colon (principal); D12.5 Benign neoplasm of sigmoid colon; D12.8 Benign neoplasm of rectum; K64.8 Other hemorrhoids; K57.30 Diverticulosis of large intestine without perforation or abscess without bleeding; D64.9 Anemia, unspecified; I10 Essential (primary) hypertension; E78.5 Hyperlipidemia, unspecified; Z83.3 Family history of diabetes mellitus; Z79.82 Long term (current) use of aspirin; Z79.899 Other long term (current) drug therapy; Z98.890 Other specified postprocedural states
CPT/HCPCS: 36415; 45385; 80053; 85025; 85610; 85730; 88305; J1200; J2250; J3010; 99152

== ENCOUNTER 2023-05-03 09:37 | Emergency (ER) | payer OTHER ==
[~2023-05-03] VITALS: Ht 175.3 cm; Wt 89.5 kg
[~2023-05-03 09:37] MED LIST changes: -MIDAZOLAM HCL 5 MG/ML-1ML VIAL ONE; -diphenhdrAMINE HCL 50 MG/1 ML VL ONE; -fentaNYL CITRATE 100 MCG/2 ML VL ONE
[2023-05-03 11:56] LABS: COVID19 ANTIGEN SOFIA FIA POSITIVE (NEGATIVE)
[2023-05-03 11:57] LABS: Rapid Influenza A Negative (Negative); Rapid Influenza B Positive (Negative)
[2023-05-03 11:58] LABS: Rapid Strep A Screen-Throat Positive
[2023-05-03] MEDS ORDERED: cefTRIAXone SOD 1,000 MG VL IM ONE (12:15)
[2023-05-03] MEDS ORDERED: ACETAMINOPHEN 500 MG TAB PO ONE (12:15)
[2023-05-03] MEDS ORDERED: AZIT500T66 PO (12:23)
[2023-05-03] MEDS ORDERED: ACET-1080 PO (12:23)
[2023-05-03] MEDS ORDERED: TAMIFLU PO (12:23)
[2023-05-03 12:26] VITALS: BP 115/69; PULSE 85; RESP 16; TEMP 99.4; O2SAT 97
== END 2023-05-03 12:27 | disposition home or self-care (01) ==
LOC: ER 09:37
DX: U07.1 COVID-19 (principal); J10.1 Influenza due to other identified influenza virus with other respiratory manifestations; J03.00 Acute streptococcal tonsillitis, unspecified; I10 Essential (primary) hypertension; E78.5 Hyperlipidemia, unspecified
CPT/HCPCS: 36415; 71046; 87426; 87804; 87880; 96372; 99284; J0696

== ENCOUNTER 2023-07-23 08:02 | Emergency (ER) | payer OTHER ==
[~2023-07-23] VITALS: Ht 175.3 cm; Wt 92.1 kg
[~2023-07-23 08:02] MED LIST changes: +AZIT500T66 PO; +TAMIFLU PO
[2023-07-23 08:42] LABS: Urine Bacteria NONE SEEN /hpf (None Seen); Urine Blood Negative /uL (Negative); Urine Clarity Clear (Clear); Urine Color Yellow (Yellow); Urine Protein, UAD TRACE (Negative); Urine Specific Gravity 1.017 (1.001-1.035); Urine Urobilinogen Normal (Negative); Urine WBC 1 /hpf (0 - 3)
[2023-07-23 09:55] VITALS: BP 148/70; PULSE 73; RESP 18; TEMP 97.3; O2SAT 98
[2023-07-23] MEDS ORDERED: ACET1CAP14 PO (10:39)
== END 2023-07-23 11:10 | disposition home or self-care (01) ==
LOC: ER 08:02
DX: N43.3 Hydrocele, unspecified (principal); N44.2 Benign cyst of testis; I10 Essential (primary) hypertension; E78.5 Hyperlipidemia, unspecified; Z79.899 Other long term (current) drug therapy
CPT/HCPCS: 76870; 81001; 99284; J7030

== ENCOUNTER → 2023-07-30 | Outpatient (CLI) | payer OTHER ==
[~2023-07-30] MED LIST changes: +ACET1CAP14 PO
[2023-07-30 08:32] LABS: Basophils # (auto) 0 10 ^3/uL (0-0.2); Basophils % (auto) 0.2 % (0.0-2.0); Eosinophils # (auto) 0.3 10 ^3/uL (0-0.8); Eosinophils % (auto) 5.2 % (0.0-7.0); Hematocrit 35.2 % (41.0-53.0); Hemoglobin 11.5 g/dL (13.5-17.5); Lymphocytes % (auto) 36.6 % (10.0-50.0); Mean Corpuscular Hemoglobin 29.5 pg (28.0-32.0); Mean Corpuscular Hgb Conc. 32.7 g/dL (32.0-36.0); Mean Corpuscular Volume 90.2 fL (80.0-100.0); Monocytes # (auto) 0.7 10 ^3/uL (0-1.3); Monocytes % (auto) 12.9 % (0.0-12.0); Neutrophils # (auto) 2.5 10 ^3/uL (1.6-8.6); Neutrophils % (auto) 45.1 % (37.0-80.0); Red Cell Distribution Width 14.4 % (11.8-14.3); White Blood Cell 5.5 10^3/uL (4.4-10.8)
[2023-07-30 09:17] LABS: Alanine Aminotransferase 17 U/L (7-40); Albumin 4.4 g/dL (3.2-4.8); Alkaline Phosphatase 60 U/L (46-116); Anion Gap 5 (5-15); Aspartate Aminotransferase 20 U/L (13-40); Blood Urea Nitrogen 23 mg/dL (9-23); Calcium 9.2 mg/dL (8.7-10.4); Carbon Dioxide 25 mmol/L (20-30); Chloride 111 mmol/L (98-107); Glucose 102 mg/dL (74-106); Potassium 4.3 mmol/L (3.5-5.1); Sodium 141 mmol/L (136-145); Uric Acid 7.6 mg/dL (3.7-9.2)
[2023-07-30 09:18] LABS: Bilirubin, Total 0.3 mg/dL (0.2-1.0); Total Protein 7.5 g/dL (5.7-8.2)
== END | disposition home or self-care (01) ==
LOC: LAB 08:19
PROVIDERS: ATTEND Internal Medicine
DX: I13.0 Hypertensive heart and chronic kidney disease with heart failure and stage 1 through stage 4 chronic kidney disease, or unspecified chronic kidney disease (principal); N18.9 Chronic kidney disease, unspecified; I50.9 Heart failure, unspecified
CPT/HCPCS: 36415; 80053; 83970; 84550; 85025

== ENCOUNTER → 2023-11-04 | Outpatient (CLI) | payer OTHER ==
[~2023-11-04] MED LIST changes: +LOSA-534 PO; -LOSA50TA46 PO
[2023-11-04 10:28] LABS: Basophils # (auto) 0 10 ^3/uL (0-0.2); Basophils % (auto) 0.3 % (0.0-2.0); Eosinophils # (auto) 0.3 10 ^3/uL (0-0.8); Eosinophils % (auto) 6.2 % (0.0-7.0); Hematocrit 32.9 % (41.0-53.0); Hemoglobin 10.8 g/dL (13.5-17.5); Lymphocytes # (auto) 2.3 10 ^3/uL (0.4-5.4); Lymphocytes % (auto) 45.5 % (10.0-50.0); Mean Corpuscular Hemoglobin 28.7 pg (28.0-32.0); Mean Corpuscular Hgb Conc. 32.8 g/dL (32.0-36.0); Mean Corpuscular Volume 87.3 fL (80.0-100.0); Monocytes # (auto) 0.6 10 ^3/uL (0-1.3); Monocytes % (auto) 12.6 % (0.0-12.0); Neutrophils # (auto) 1.8 10 ^3/uL (1.6-8.6); Neutrophils % (auto) 35.4 % (37.0-80.0); Nucleated Red Blood Cells % 0.1 %; Red Blood Cells 3.76 10^6/uL (4.5-5.90); Red Cell Distribution Width 13.4 % (11.8-14.3); White Blood Cell 5.1 10^3/uL (4.4-10.8)
[2023-11-04 10:55] LABS: % Iron Saturation 12.5 % (20-55)
[2023-11-04 10:56] LABS: Alanine Aminotransferase 16 U/L (7-40); Albumin 4.7 g/dL (3.2-4.8); Alkaline Phosphatase 66 U/L (46-116); Anion Gap 5 (5-15); Aspartate Aminotransferase 19 U/L (13-40); BUN/Creatinine Ratio 13.9 (10.0-20.0); Blood Urea Nitrogen 23 mg/dL (9-23); Calcium 9.6 mg/dL (8.5-10.1); Carbon Dioxide 24 mmol/L (20-30); Chloride 110 mmol/L (98-107); Glucose 88 mg/dL (74-106); Potassium 4.7 mmol/L (3.5-5.1); Sodium 139 mmol/L (136-145)
[2023-11-04 10:57] LABS: Bilirubin, Total 0.3 mg/dL (0.2-1.0); Total Protein 7.8 g/dL (5.7-8.2)
[2023-11-04 10:58] LABS: Folate (Folic Acid) 14.6 ng/mL (>5.38)
== END | disposition home or self-care (01) ==
LOC: LAB 10:07
PROVIDERS: ATTEND Internal Medicine
DX: D64.9 Anemia, unspecified (principal)
CPT/HCPCS: 36415; 80053; 82607; 82746; 83540; 83550; 83615; 85025

== ENCOUNTER → 2024-02-02 | Outpatient (CLI) | payer OTHER ==
[2024-02-02 16:05] LABS: Basophils # (auto) 0 10 ^3/uL (0-0.2); Basophils % (auto) 0.3 % (0.0-2.0); Eosinophils # (auto) 0.3 10 ^3/uL (0-0.8); Eosinophils % (auto) 4.9 % (0.0-7.0); Hematocrit 33.9 % (41.0-53.0); Hemoglobin 11.1 g/dL (13.5-17.5); Lymphocytes # (auto) 2.2 10 ^3/uL (0.4-5.4); Lymphocytes % (auto) 35.5 % (10.0-50.0); Mean Corpuscular Hemoglobin 29.3 pg (28.0-32.0); Mean Corpuscular Hgb Conc. 32.9 g/dL (32.0-36.0); Mean Corpuscular Volume 89.1 fL (80.0-100.0); Monocytes # (auto) 0.6 10 ^3/uL (0-1.3); Monocytes % (auto) 10.3 % (0.0-12.0); Nucleated Red Blood Cells % 0.1 %; Platelet Count (auto) 326 10^3/uL (140-450); Red Blood Cells 3.81 10^6/uL (4.5-5.90); Red Cell Distribution Width 14.6 % (11.8-14.3); White Blood Cell 6.1 10^3/uL (4.4-10.8)
[2024-02-02 16:27] LABS: Wright Stain Ready for Review
[2024-02-02 16:28] LABS: % Iron Saturation 21.2 % (20-55)
[2024-02-02 16:29] LABS: Alanine Aminotransferase 16 U/L (7-40); Albumin 4.3 g/dL (3.2-4.8); Alkaline Phosphatase 63 U/L (46-116); Anion Gap 6 (5-15); Aspartate Aminotransferase 17 U/L (13-40); BUN/Creatinine Ratio 10.5 (10.0-20.0); Bilirubin, Total 0.3 mg/dL (0.2-1.0); Blood Urea Nitrogen 19 mg/dL (9-23); Calcium 9.4 mg/dL (8.7-10.4); Carbon Dioxide 21 mmol/L (20-30); Chloride 114 mmol/L (98-107); Glucose 99 mg/dL (74-106); Potassium 4.2 mmol/L (3.5-5.1); Sodium 141 mmol/L (136-145); Total Protein 7.5 g/dL (5.7-8.2)
[2024-02-02 16:40] LABS: Ferritin 38.1 ng/mL (22-322)
[2024-02-02 16:42] LABS: Folate (Folic Acid) 13.48 ng/mL (>5.38)
[2024-02-03 07:06] LABS: Kappa Lite Chain Free Serum 242.5 mg/L (3.3-19.4)
[2024-02-03 08:06] LABS: Immunoglobulin A 267 mg/dL (61-437); Immunoglobulin G, Serum 1483 mg/dL (603-1613); Immunoglobulin M 51 mg/dL (15-143)
[2024-02-03 11:07] LABS: Albumin 3.5 g/dL (2.9-4.4); Alpha-1-Globulin 0.2 g/dL (0.0-0.4); Alpha-2-Globulin 0.8 g/dL (0.4-1.0); Gamma Globulin 1.4 g/dL (0.4-1.8); Globulin Total 3.5 g/dL (2.2-3.9)
== END | disposition home or self-care (01) ==
LOC: LAB 15:43
PROVIDERS: ATTEND Student in an Organized Health Care Education/Training Program
DX: D64.9 Anemia, unspecified (principal)
CPT/HCPCS: 36415; 80053; 82607; 82728; 82746; 82784; 83521; 83540; 83550; 83615; 84155; 84165; 85025; 85045; 86334

== ENCOUNTER → 2024-03-16 | Outpatient (CLI) | payer OTHER ==
[2024-03-17 08:06] LABS: Immunoglobulin A 300 mg/dL (61-437); Immunoglobulin G, Serum 1716 mg/dL (603-1613); Immunoglobulin M 63 mg/dL (15-143)
[2024-03-17 10:07] LABS: Kappa Lite Chain Free Serum 283.2 mg/L (3.3-19.4)
[2024-03-17 14:06] LABS: Albumin 3.7 g/dL (2.9-4.4); Alpha-1-Globulin 0.3 g/dL (0.0-0.4); Alpha-2-Globulin 1.1 g/dL (0.4-1.0); Gamma Globulin 1.7 g/dL (0.4-1.8); Globulin Total 4.4 g/dL (2.2-3.9); Protein Total Serum 8.1 g/dL (6.0-8.5)
[2024-03-19 08:06] LABS: Albumin Urine 47.1 % (.); Alpha-1-Globulin Urine 1.8 % (.); Alpha-2-Globulin Urine 3.2 % (.); Beta Globulin Urine 37.8 % (.); Gamma Globulin Urine 10.1 % (.); M-Spike % 24.7 % (Not Observed); Protein Total Urine 52.1 mg/dL (Not Estab.)
== END | disposition home or self-care (01) ==
LOC: LAB 09:48
PROVIDERS: ATTEND Student in an Organized Health Care Education/Training Program
DX: D64.9 Anemia, unspecified (principal)
CPT/HCPCS: 82784; 83521; 84155; 84156; 84165; 84166; 86334; 86335

== ENCOUNTER 2024-05-24 12:21 | Inpatient (IN) | payer OTHER ==
[~2024-05-24] VITALS: Ht 175.3 cm; Wt 91.0 kg
--- NOTE | 2024-05-24 12:30 | ECG ---
[facility] Test Date: 2024-05-24 Test Time: 12:25:16 Pat Name: MARY HEREDIA Department: ER Room: [address] [place] [address] Gender: M Seed Technician: GP : [id number] Requested By: NELIDA GUPTA Order Number: [id number] Reading MD: Yoel Meehan Measurements Intervals [place] Rate: 74 P: 45 ND: 184 QRS: -10 QRSD: 89 T: 22 QT: 386 QTc: 429 Interpretive Statements Sinus rhythm Low voltage, precordial leads Left ventricular hypertrophy Electronically Signed On 05-28-2024 12:35:24 PST by Yoel Meehan Please click the below link to view image of tracing.
[2024-05-24 12:56] LABS: Basophils # (auto) 0 10 ^3/uL (0-0.2); Basophils % (auto) 0.3 % (0.0-2.0); Eosinophils # (auto) 0.3 10 ^3/uL (0-0.8); Eosinophils % (auto) 4.1 % (0.0-7.0); Hematocrit 31.5 % (41.0-53.0); Hemoglobin 10.4 g/dL (13.5-17.5); Lymphocytes # (auto) 1.5 10 ^3/uL (0.4-5.4); Lymphocytes % (auto) 23.5 % (10.0-50.0); Mean Corpuscular Hemoglobin 29.3 pg (28.0-32.0); Mean Corpuscular Volume 88.8 fL (80.0-100.0); Monocytes # (auto) 0.7 10 ^3/uL (0-1.3); Monocytes % (auto) 10.4 % (0.0-12.0); Neutrophils % (auto) 61.7 % (37.0-80.0); Platelet Count (auto) 374 10^3/uL (140-450); Red Blood Cells 3.55 10^6/uL (4.5-5.90); Red Cell Distribution Width 13.9 % (11.8-14.3); White Blood Cell 6.5 10^3/uL (4.4-10.8)
[2024-05-24 13:10] LABS: INR 0.97 (0.9-1.15); Partial Thromboplastin Time 25.4 SEC (24.5-34.5); Prothrombin Time 10.3 sec (9.3-11.8)
[2024-05-24 13:11] LABS: Alanine Aminotransferase 16 U/L (7-40); Albumin 4.6 g/dL (3.2-4.8); Alkaline Phosphatase 70 U/L (46-116); Anion Gap 6 (5-15); Aspartate Aminotransferase 15 U/L (13-40); BUN/Creatinine Ratio 13.2 (10.0-20.0); Blood Urea Nitrogen 23 mg/dL (9-23); Carbon Dioxide 25 mmol/L (20-31); Glucose 89 mg/dL (74-106); Magnesium 2.1 mg/dL (1.6-2.6); Potassium 4.3 mmol/L (3.5-5.1); Sodium 139 mmol/L (136-145)
[2024-05-24 13:12] LABS: Bilirubin, Total 0.2 mg/dL (0.2-1.0); Chloride 108 mmol/L (98-107); Total Protein 8.1 g/dL (5.7-8.2)
--- NOTE | 2024-05-24 14:07 | DVH ---
EXAMINATION: AP portable chest radiograph CLINICAL HISTORY: CP COMPARISON: CHEST PORTABLE on DOS: 05/03/2023; 05/09/22, CXRP on DOS: 05/09/22 TECHNIQUE: SINGLE VIEW OF THE CHEST FINDINGS: Negative AP chest. No dominant consolidations. The costophrenic angles are clear. No sizable pleural effusions or pneumo thorax identified. The cardiomediastinal silhouette appears within normal limits given technique. IMPRESSION: 1. Negative AP chest. 2. No significant change from 05/03/2023
--- NOTE | 2024-05-24 15:50 | ED.PDOC ---
HPI Comments HPI: Poor Historian. 83-year-old male presents to the emergency department for evaluation of left- sided chest pain that has been intermittent and mild in the last few days but today when he was walking out of the grocery store he said his pain was very severe nonradiating worse with exertion better with rest. No other associated symptoms. Patient does not have a vp product management. Patient denies any recent history of any cardiac evaluation. Patient is currently symptoms free. Past Medcial History: Hypertension, hyperlipidemia, remote tobacco abuse Past Surgical History: Denies any REVIEW OF SYSTEMS: CONSTITUTIONAL: Denies acute: fever, diaphoresis, chills, generalized weakness. HEAD: Denies acute: headache, photophobia Eyes: Denies acute: Double vision, vision loss, eye pain, eye discharge. EARS: Denies acute: tinnitus, hearing loss, ear discharge, ear pain, THROAT: Denies acute: sore throat, swelling, difficulty swallowing , pain with swallowing, change in voice. NECK: Denies acute: neck pain, neck swelling, stiff neck. HEART: Denies acute : , palpitations, LUNGS: Denies acute: SOB, wheezing, cough, hemoptysis ABDOMEN: Denies acute: abdominal pain, Nausea, Vomiting, diarrhea, melena , hematemesis, hematochezia SKIN: Denies acute: rash, redness, lesions, itchiness. EXTREMITIES: Denies acute: calf pain, numbness, tingling, weakness, denies pain in extremity. Denies acute: Low back pain. Neuro: Denies acute: focal neurological deficit, motor or sensory focal neurological deficit, tremors, seizure like activity, confusion, dizziness, change in mental status, loss of bowel or bladder function, cauda equina like symptoms. : Denies acute: dysuria, hematuria, flank pain, increase in urinary frequency. PSYCH: Denies acute: hallucination, suicidal ideation, homicidal ideation. PHYSICAL EXAM: General: no acute distress, awake and alert. Head: normocephalic, atraumatic. Neck: supple, trachea is midline, no swelling. Throat: Normal phonation. Eyes:, no erythema, no purulent discharge, no proptosis, no icterus. Heart: regular rate, regular rhythm, no significant murmur appreciated. Lungs: no apparent respiratory distress, Able to speak in full sentences. No wheezing, no rhonchi, no crackles. No stridors Clear to auscultation bilaterally. Abdomen: non tender to palpation, non distended, soft, no guarding, no rebound, + bowel sounds. Neuro: Awake, Alert, oriented to name, self, situation, follows commands GCS=15. Speech is normal. Skin: no petechia, no purpura, no cyanosis, non-pale, not jaundice. Lower extremities: --no - Pitting edema no deformity, no focal swelling, no calf TTP. Makes eye contact. moves all four extremities. Face: no apparent facial droop. Ambulating in the ED independently. Chief Complaint: Chest Pain Time Seen by MD: 15:26 Primary Care Provider: MATTHIAS Reviewed Notes: Nurses Notes, Medications, Allergies Allergies: Coded Allergies: NO KNOWN ALLERGIES (Unverified , 08/21/21) Home Meds Active Scripts Acetaminophen (Tylenol) 325 Mg Cap, 325 MG PO Q4HPRN PRN, #30 CAP 0 Refills Take 1-2 caps po q4h prn for pain/fever (Do not exceed 3,000mg of acetaminophen in 24 hours) Prov:LIZETH SONG SQL SERVER BI DEVELOPER 07/23/23 Acetaminophen (Tylenol 8 Hour Arthritis) 650 Mg Tab, 650 MG PO TID, #30 TAB Prov:JAMARCUS VINSON 05/03/23 Oseltamivir Phosphate (Tamiflu) 75 Mg Cap, 75 MG PO BID for 5 Days, #10 CAP Prov:JAMARCUS VISNON 05/03/23 Azithromycin (Azithromycin) 500 Mg Tab, 1 TAB PO DAILY, #5 TAB Prov:JAMARCUS VINSON 05/03/23 Acetaminophen (Tylenol 8 Hour Arthritis) 650 Mg Tab, 650 MG PO TID, #30 TAB Prov:JAMARCUS VINSON 11/09/21 Reported Medications Amlodipine Besylate (Amlodipine Besylate) 5 Mg Tab, 10 MG PO DAILY, MG 11/29/19 Hctz (Hydrochlorothiazide) 25 Mg Tab, 25 MG PO DAILY, TAB 11/29/19 Losartan Potassium (Losartan Potassium) 50 Mg Tab, 50 MG PO DAILY for 30 Days, MG 11/29/19 Aspirin (Aspir-Low) 81 Mg Tab, 81 MG PO DAILY for 30 Days, MG 08/01/16 Simvastatin (Simvastatin) 20 Mg Tab, DAILY 11/28/10 Information Source: Patient Mode of Arrival: Wheelchair Past Medical History PAST MEDICAL HISTORY: High Lipids, HTN Surgical History: Denies all surgeries Family History Family History: Reviewed,noncontributory to illness, Family hx of HTN Social History Smoker: Non-Smoker Alcohol: Denies ETOH Use Drugs: Denies Drug Use Lives In: Home X-Ray, Labs, Meds, VS Vital Signs Date Time Temp Pulse Resp B/P (MAP) Pulse Ox O2 Delivery O2 Flow Rate FiO2 05/24/24 12:25 74 05/24/24 12:24 98.6 86 18 138/69 (92) 97 Lab Test 05/24/24 13:53 05/24/24 12:37 Range/Units Troponin I High Sensitivity 9 9 </=54 ng/L White Blood Count 6.5 4.4-10.8 10^3/uL Red Blood Count 3.55 L 4.5-5.90 10^6/uL Hemoglobin 10.4 L 13.5-17.5 g/dL Hematocrit 31.5 L 41.0-53.0 % Mean Corpuscular Volume 88.8 80.0-100.0 fL Mean Corpuscular Hemoglobin 29.3 28.0-32.0 pg Mean Corpuscular Hemoglobin Concent 33.0 32.0-36.0 g/dL Red Cell Distribution Width 13.9 11.8-14.3 % Platelet Count 374 140-450 10^3/uL Mean Platelet Volume 7.6 6.9-10.8 fL Neutrophils (%) (Auto) 61.7 37.0-80.0 % Lymphocytes (%) (Auto) 23.5 10.0-50.0 % Monocytes (%) (Auto) 10.4 0.0-12.0 % Eosinophils (%) (Auto) 4.1 0.0-7.0 % Basophils (%) (Auto) 0.3 0.0-2.0 % Neutrophils # (Auto) 4.0 1.6-8.6 10 ^3/uL Lymphocytes # (Auto) 1.5 0.4-5.4 10 ^3/uL Monocytes # (Auto) 0.7 0-1.3 10 ^3/uL Eosinophils # (Auto) 0.3 0-0.8 10 ^3/uL Basophils # (Auto) 0 0-0.2 10 ^3/uL Nucleated Red Blood Cells 0.0 % Prothrombin Time 10.3 9.3-11.8 sec Prothrombin Time INR 0.97 0.9-1.15 Activated Partial Thromboplast Time 25.4 24.5-34.5 SEC Sodium Level 139 136-145 mmol/L Potassium Level 4.3 3.5-5.1 mmol/L Chloride Level 108 H 98-107 mmol/L Carbon Dioxide Level 25 20-31 mmol/L Anion Gap 6 5-15 Blood Urea Nitrogen 23 9-23 mg/dL Creatinine 1.74 H 0.700-1.30 mg/dL Glomerular Filtration Rate Calc 38 >90 mL/min BUN/Creatinine Ratio 13.2 10.0-20.0 Serum Glucose 89 74-106 mg/dL Calcium Level 10.0 8.7-10.4 mg/dL Magnesium Level 2.1 1.6-2.6 mg/dL Total Bilirubin 0.2 0.2-1.0 mg/dL Aspartate Amino Transferase (AST) 15 13-40 U/L Alanine Aminotransferase (ALT) 16 7-40 U/L Alkaline Phosphatase 70 46-116 U/L B-Type Natriuretic Peptide 29.01 0-100 pg/mL Total Protein 8.1 5.7-8.2 g/dL Albumin 4.6 3.2-4.8 g/dL Departure 1 Departure Time of Disposition: 15:47 Impression: Primary Impression: Chest pain Disposition: ADMITTED INPATIENT Admit to: [facility] Condition: Guarded Discharged With: Self Heart Score Heart Score: Heart Score Response (Comments) Value History Moderate Suspicious 1 EKG Normal 0 Age >65 2 Risk Factors >3 or Hx ASHD 2 Troponin Normal limit 0 Total 5 RHIANNON OLSON DO May 24, 2024 15:49
[2024-05-24] MEDS ORDERED: ONDANSETRON HCL 4 MG/2 ML VIAL IV PRN (16:15)
[2024-05-24] MEDS ORDERED: ACETAMINOPHEN 325 MG TAB PO PRN (16:15)
[2024-05-24] MEDS: SODIUM CHLORIDE 0.9% 1,000 ML IV SCH (16:15)
[2024-05-24] MEDS ORDERED: MAALOX PLUS or MAALOX 30 ML PO PRN (16:15)
[2024-05-24] MEDS ORDERED: MORPHINE SULFATE INJ 2 MG/ml SYRG IV PRN (16:15)
[2024-05-24] MEDS ORDERED: NITROGLYCERIN 0.4 MG SL TAB SL PRN (16:15)
[2024-05-24] MEDS: ASPirin-EC 325mg tab PO ONE (16:18)
--- NOTE | 2024-05-24 16:27 | DVHHP2 ---
History of Present Illness Reason for Visit: Chest pain History of Present Illness 83-year-old obese patient with a past medical history of hypertension hyperlipidemia previous smoker comes to the ED for complaints of left-sided chest pain patient was evaluated in the ED patient states initially he was walking store when he started having pain in his chest especially on the left side making it more and more difficult to breathe when patient relaxed there was no acute change patient does not follow with any kind of Cardiology and states he has never had an IL does not have a history of CHF or CAD and only medical problems include hypertension hyperlipidemia patient was evaluated in the ED had tropes completed and was recommended to continue evaluation as per ED Cardiovascular: HTN, hyperipidemia Review of Systems Constitutional: No: Fever, Chills, Sweats, Weakness, Malaise, Other Eyes: No: Pain, Vision change, Conjunctivae inflammation, Eyelid inflammation, Other, Redness ENT: No: Ear pain, Ear discharge, Nose pain, Nose discharge, Nose congestion, Mouth pain, Mouth swelling, Throat pain, Throat swelling, Other Respiratory: Shortness of breath; No: Cough, Dry, SOB with excertion, Wheezing, Hemoptysis, Pleuritic Pain, Sputum, Wheezing, Other Cardiovascular: Chest Pain, Palpitations; No: Orthopnea, Paroxysmal Noc. Dyspnea, Edema, Lt Headedness, Other Gastrointestinal: No: Nausea, Vomiting, Abdominal Pain, Diarrhea, Constipation, Melena, Hematochezia, Other Genitourinary: No Dysuria, No Frequency, No Incontinence, No Hematuria, No Retention, No Other Musculoskeletal: No: other, neck pain, shoulder pain, arm pain, back pain, hand pain, leg pain, foot pain Skin: No: Rash, Lesions, Jaundice, Bruising, Other Neurological: No: Weakness, Numbness, Incoordination, Change in speech, Confusion, Seizures, Other Allergies: Coded Allergies: NO KNOWN ALLERGIES (Unverified , 08/21/21) Exam Vital Signs Vital Signs Date Time Temp Pulse Resp B/P (MAP) Pulse Ox O2 Delivery O2 Flow Rate FiO2 05/24/24 12:25 74 05/24/24 12:24 98.6 18 138/69 (92) 97 General Appearance: Alert, Oriented X3, Cooperative, mild distress HEENT: Atraumatic, PERRLA Respiratory: Clear to auscultation, Normal air movement Cardiovascular: Regular rate, Normal S1, Normal S2 Abdominal: Normal bowel sounds, Soft Extremities: No clubbing, No cyanosis Skin: No rashes, No breakdown Neuro: Normal gait, Normal speech Psych/Mental Status: Mood NL Labs/Xrays Labs Test 05/24/24 13:53 05/24/24 12:37 Range/Units Troponin I High Sensitivity 9 </=54 ng/L White Blood Count 6.5 4.4-10.8 10^3/uL Red Blood Count 3.55 L 4.5-5.90 10^6/uL Hemoglobin 10.4 L 13.5-17.5 g/dL Hematocrit 31.5 L 41.0-53.0 % Mean Corpuscular Volume 88.8 80.0-100.0 fL Mean Corpuscular Hemoglobin 29.3 28.0-32.0 pg Mean Corpuscular Hemoglobin Concent 33.0 32.0-36.0 g/dL Red Cell Distribution Width 13.9 11.8-14.3 % Platelet Count 374 140-450 10^3/uL Mean Platelet Volume 7.6 6.9-10.8 fL Neutrophils (%) (Auto) 61.7 37.0-80.0 % Lymphocytes (%) (Auto) 23.5 10.0-50.0 % Monocytes (%) (Auto) 10.4 0.0-12.0 % Eosinophils (%) (Auto) 4.1 0.0-7.0 % Basophils (%) (Auto) 0.3 0.0-2.0 % Neutrophils # (Auto) 4.0 1.6-8.6 10 ^3/uL Lymphocytes # (Auto) 1.5 0.4-5.4 10 ^3/uL Monocytes # (Auto) 0.7 0-1.3 10 ^3/uL Eosinophils # (Auto) 0.3 0-0.8 10 ^3/uL Basophils # (Auto) 0 0-0.2 10 ^3/uL Nucleated Red Blood Cells 0.0 % Prothrombin Time 10.3 9.3-11.8 sec Prothrombin Time INR 0.97 0.9-1.15 Activated Partial Thromboplast Time 25.4 24.5-34.5 SEC Sodium Level 139 136-145 mmol/L Potassium Level 4.3 3.5-5.1 mmol/L Chloride Level 108 H 98-107 mmol/L Carbon Dioxide Level 25 20-31 mmol/L Anion Gap 6 5-15 Blood Urea Nitrogen 23 9-23 mg/dL Creatinine 1.74 H 0.700-1.30 mg/dL Glomerular Filtration Rate Calc 38 >90 mL/min BUN/Creatinine Ratio 13.2 10.0-20.0 Serum Glucose 89 74-106 mg/dL Calcium Level 10.0 8.7-10.4 mg/dL Magnesium Level 2.1 1.6-2.6 mg/dL Total Bilirubin 0.2 0.2-1.0 mg/dL Aspartate Amino Transferase (AST) 15 13-40 U/L Alanine Aminotransferase (ALT) 16 7-40 U/L Alkaline Phosphatase 70 46-116 U/L B-Type Natriuretic Peptide 29.01 0-100 pg/mL Total Protein 8.1 5.7-8.2 g/dL Albumin 4.6 3.2-4.8 g/dL Assessment/Plan Assessment/Plan Admit to [facility] Chest pain rule out ACS Chose x2 negative We will follow chest pain protocol History of hypertension Hyperlipidemia will continue home medications as per patient No acute signs of infection noted Urine still pending Previous medications aspirin 81 mg daily Hydrochlorothiazide 25 mg daily Losartan 50 mg daily Simvastatin no longer taken we will start a new statin Plan discussed with: Patient My Orders Orders - ANDREW LUJAN MD Procedure Category Date Status Time Aspirin Enteric PHA 05/25/24 Logged Coated Tablet 10:00 Hydrochlorothiazide PHA 05/25/24 Logged Tablet (Hydrochlorot 10:00 Losartan Tablet PHA 05/25/24 Logged (Cozaar Tablet) 10:00 Admit ADMIT 05/24/24 Transmitted 16:04 Code Status CODE 05/24/24 Transmitted 16:04 Cardiac DIET 05/24/24 Transmitted Diet-2gna,Lofat,Lochol Dinner Sodium Chloride 0.9% PHA 05/24/24 Logged 16:15 Atorvastatin (Lipitor) PHA 05/24/24 Logged 22:00 Metoprolol Tartrate PHA 05/24/24 Logged Tablet (Lopressor Ta 22:00 Acetaminophen Tablet PHA 05/24/24 Logged (Tylenol Tablet) 16:15 Docusate Sodium PHA 05/25/24 Logged Capsule (Colace 10:00 Complete Blood Count LAB 05/25/24 Verified 04:00 Basic Metabolic Panel LAB 05/25/24 Verified 04:00 Ondansetron Hcl PHA 05/24/24 Logged (Zofran) 16:15 Electrocardigram EKG 05/24/24 Logged 16:04 Alum & Mag PHA 05/24/24 Logged Hydrox-Simethicone 16:15 Troponin-I Hs LAB 05/24/24 Logged 16:04 Cardiac SHAYAN 05/24/24 In Process Rehabilitation - Outpa Nitroglycerin PHA 05/24/24 Logged Sublingual (Ntrostat 16:15 Morphine Sulfate [facility] 05/24/24 Logged Injection 16:15 Stat Ekg For Chest [facility] 05/24/24 In Process Pain 16:04 Notify Md Of Changes [facility] 05/24/24 In Process From Base 16:04 [employer] Special [employer] Teacher For [facility] 05/24/24 In Process 24 Hours 16:04 Emergency Dysrhythmia [facility] 05/24/24 In Process Protocol 16:04 Rhythm Strips Once [facility] 05/24/24 In Process Every Shift 16:04 Oxygen By Nasal RT 05/24/24 Transmitted Cannula 16:04 Problem List: (1) Hypertension (2) Hyperlipidemia (3) Chest pain Date of Service: May 24, 2024 Billing Provider: ANDREW LUJAN MD Common Visit Codes: [id number] INP/OBS CARE (HIGH) ANDREW LUJAN MD May 24, 2024 16:27
[2024-05-24 21:48] LABS: Urine Bacteria None Seen /hpf (None Seen)
[2024-05-24 21:58] LABS: Urine Blood Negative /uL (Negative); Urine Clarity Clear (Clear); Urine Color Light-Yellow (Yellow); Urine Hyaline Cast FEW /lpf (0 - 2); Urine Mucus FEW (None Seen); Urine Protein, UAD TRACE (Negative); Urine Specific Gravity 1.014 (1.001-1.035); Urine Urobilinogen Normal (Negative); Urine WBC 1 /hpf (0 - 3)
[2024-05-24 22:45] VITALS: PULSE 77; RESP 16; O2SAT 98
[2024-05-24] MEDS: METOPROLOL TARTRATE 25 MG TAB PO SCH (22:46)
[2024-05-24] MEDS: ATORVASTATIN 20 MG TAB PO SCH (22:46)
[2024-05-25 00:13] VITALS: BP 126/66; PULSE 63; RESP 18; TEMP 97.9; O2SAT 97
[2024-05-25 01:00] VITALS: BP 120/64; PULSE 64; RESP 18; TEMP 98.1; O2SAT 95
[2024-05-25 05:22] LABS: Potassium 4.4 mmol/L (3.5-5.1); Sodium 140 mmol/L (136-145)
[2024-05-25 05:23] LABS: Anion Gap 5 (5-15); Calcium 10.3 mg/dL (8.7-10.4); Carbon Dioxide 26 mmol/L (20-31)
[2024-05-25 05:25] LABS: Basophils # (auto) 0 10 ^3/uL (0-0.2); Basophils % (auto) 0.3 % (0.0-2.0); Eosinophils # (auto) 0.3 10 ^3/uL (0-0.8); Hematocrit 30.6 % (41.0-53.0); Hemoglobin 10.2 g/dL (13.5-17.5); Lymphocytes # (auto) 1.7 10 ^3/uL (0.4-5.4); Lymphocytes % (auto) 24.5 % (10.0-50.0); Mean Corpuscular Hemoglobin 29.4 pg (28.0-32.0); Mean Corpuscular Hgb Conc. 33.5 g/dL (32.0-36.0); Mean Corpuscular Volume 87.8 fL (80.0-100.0); Monocytes # (auto) 0.8 10 ^3/uL (0-1.3); Monocytes % (auto) 11.6 % (0.0-12.0); Neutrophils # (auto) 4.2 10 ^3/uL (1.6-8.6); Neutrophils % (auto) 59.6 % (37.0-80.0); Nucleated Red Blood Cells % 0.1 %; Platelet Count (auto) 358 10^3/uL (140-450); Red Blood Cells 3.48 10^6/uL (4.5-5.90); Red Cell Distribution Width 13.6 % (11.8-14.3); White Blood Cell 7.1 10^3/uL (4.4-10.8)
[2024-05-25 05:28] LABS: BUN/Creatinine Ratio 14.9 (10.0-20.0); Glucose 90 mg/dL (74-106)
[2024-05-25 05:49] LABS: Blood Urea Nitrogen 24 mg/dL (9-23); Chloride 109 mmol/L (98-107)
[2024-05-25 07:55] VITALS: BP 112/58; PULSE 65; RESP 18; TEMP 97.7; O2SAT 98
[2024-05-25] MEDS: DOCUSATE SOD 100 MG CAP PO SCH (09:44)
[2024-05-25] MEDS: ASPirin-EC 81 mg tab PO SCH (09:45)
[2024-05-25] MEDS: LOSARTAN POTASSIUM 50 MG TAB PO SCH (09:45)
[2024-05-25] MEDS: hydroCHLOROthiazide 25 MG TAB PO SCH (09:46)
[2024-05-25 12:11] VITALS: BP 143/62; PULSE 72; RESP 16; TEMP 98; O2SAT 98
== END 2024-05-25 14:05 | disposition home or self-care (01) | DRG 313 ==
LOC: ER 12:21 → OVERFLOW 16:04
PROVIDERS: ADMIT Hospitalist; ATTEND Hospitalist
DX: R07.89 Other chest pain (principal); E78.5 Hyperlipidemia, unspecified; E66.9 Obesity, unspecified; I10 Essential (primary) hypertension; Z79.899 Other long term (current) drug therapy; Z79.82 Long term (current) use of aspirin; Z87.891 Personal history of nicotine dependence; Z68.29 Body mass index [BMI] 29.0-29.9, adult
CPT/HCPCS: 36415; 71045; 80048; 80053; 81001; 82784; 83521; 83735; 83880; 84155; 84165; 84484; 85025; 85610; 85730; 86335; 93005; G0378

== ENCOUNTER → 2024-05-24 | Outpatient (CLI) | payer OTHER ==
[2024-05-24 12:03] LABS: Basophils # (auto) 0 10 ^3/uL (0-0.2); Basophils % (auto) 0.2 % (0.0-2.0); Eosinophils # (auto) 0.2 10 ^3/uL (0-0.8); Eosinophils % (auto) 4.3 % (0.0-7.0); Hematocrit 30.5 % (41.0-53.0); Lymphocytes # (auto) 1.4 10 ^3/uL (0.4-5.4); Lymphocytes % (auto) 23.6 % (10.0-50.0); Mean Corpuscular Hemoglobin 29.2 pg (28.0-32.0); Mean Corpuscular Hgb Conc. 32.8 g/dL (32.0-36.0); Mean Corpuscular Volume 88.8 fL (80.0-100.0); Monocytes # (auto) 0.7 10 ^3/uL (0-1.3); Monocytes % (auto) 12.1 % (0.0-12.0); Neutrophils # (auto) 3.5 10 ^3/uL (1.6-8.6); Neutrophils % (auto) 59.8 % (37.0-80.0); Platelet Count (auto) 362 10^3/uL (140-450); Red Blood Cells 3.43 10^6/uL (4.5-5.90); Red Cell Distribution Width 13.8 % (11.8-14.3); White Blood Cell 5.8 10^3/uL (4.4-10.8)
[2024-05-24 12:21] LABS: INR 0.97 (0.9-1.15); Prothrombin Time 10.3 sec (9.3-11.8)
[2024-05-24 12:31] LABS: Alanine Aminotransferase 11 U/L (7-40); Albumin 4.5 g/dL (3.2-4.8); Alkaline Phosphatase 69 U/L (46-116); Anion Gap 4 (5-15); Aspartate Aminotransferase 13 U/L (13-40); BUN/Creatinine Ratio 13.9 (10.0-20.0); Calcium 9.9 mg/dL (8.7-10.4); Carbon Dioxide 27 mmol/L (20-31); Glucose 99 mg/dL (74-106); Potassium 4.1 mmol/L (3.5-5.1); Sodium 139 mmol/L (136-145)
[2024-05-24 12:32] LABS: Bilirubin, Total 0.2 mg/dL (0.2-1.0); Total Protein 7.8 g/dL (5.7-8.2)
[2024-05-24 12:34] LABS: Blood Urea Nitrogen 24 mg/dL (9-23); Chloride 108 mmol/L (98-107)
[2024-05-25 08:07] LABS: Immunoglobulin A 301 mg/dL (61-437); Immunoglobulin G, Serum 1596 mg/dL (603-1613); Immunoglobulin M 58 mg/dL (15-143)
== END | disposition home or self-care (01) ==
LOC: LAB 11:33
PROVIDERS: ATTEND Internal Medicine
DX: D64.9 Anemia, unspecified (principal); M89.50 Osteolysis, unspecified site
CPT/HCPCS: 36415; 80053; 82784; 83521; 84155; 84165; 85025; 85610; 85730; 86335

== ENCOUNTER → 2024-05-31 | Outpatient (CLI) | payer OTHER ==
[2024-06-03 05:07] LABS: Albumin Urine 39.5 % (.); Alpha-1-Globulin Urine 2.3 % (.); Alpha-2-Globulin Urine 3.2 % (.); Beta Globulin Urine 10.7 % (.); Gamma Globulin Urine 44.4 % (.); M-Spike % 32.1 % (Not Observed); Protein 24hr calculated 240 mg/24 hr (30-150)
== END | disposition home or self-care (01) ==
LOC: LAB 11:09
PROVIDERS: ATTEND Student in an Organized Health Care Education/Training Program
DX: D64.9 Anemia, unspecified (principal)
CPT/HCPCS: 84156; 84166

== ENCOUNTER → 2024-06-01 | Outpatient (CLI) | payer OTHER ==
[2024-06-01 12:15] VITALS: BP 110/62
[2024-06-01] MEDS: MIDAZOLAM HCL 2MG/2ML 2ml VIAL (1mg/ml) IV ONE (12:15)
[2024-06-01] MEDS: fentaNYL CITRATE 100 MCG/2 ML VL IV ONE (12:15)
--- NOTE | 2024-06-01 20:14 | DVH ---
CT PELVIS WO CONTRAST, HISTORY: OSTEOLYTIC BONE LESION COMPARISON: None PROCEDURE: Informed consent and time-out was performed before the procedure. Conscious sedation was p erformed by the interventional radiology nurse. The right posterior pelvis bone was marked, sterilize d, draped, and locally anesthetized using approximately 8 ml of 1% lidocaine. Axial CT images were us ed for localization. A 11 gauge [employer] Bone Biopsy kit was used to take 15 mL aspirate and 1 core sample. The biopsy needle was then removed. No immediate complications noted. SEDATION: Dr. Usha Kearney was personally responsible for the administration of moderate sedation during the procedure performed, including the use of an independent trained observer who had no other duties during the procedure. The drug[s] utilized were IV fentanyl and versed (see nursing log for details) . The total time of supervision by the attending physician was approximately 30 minutes. FINDINGS: Axial CT images demonstrates biopsy needle within the right posterior pelvis bone. IMPRESSION: CT-guided biopsy of the right posterior pelvis bone.
--- NOTE | 2024-06-01 20:15 | DVH ---
PROCEDURE: CT GUIDED BIOPSY OF bone marrow HISTORY: OSTEOLYTIC BONE LESION COMPARISON: None PROCEDURE: Informed consent and time-out was performed before the procedure. Conscious sedation was p erformed by the interventional radiology nurse. The right posterior pelvis bone was marked, sterilize d, draped, and locally anesthetized using approximately 8 ml of 1% lidocaine. Axial CT images were us ed for localization. A 11 gauge [employer] Bone Biopsy kit was used to take 15 mL aspirate and 1 core sample. The biopsy needle was then removed. No immediate complications noted. SEDATION: Dr. Usha Kearney was personally responsible for the administration of moderate sedation during the procedure performed, including the use of an independent trained observer who had no other duties during the procedure. The drug[s] utilized were IV fentanyl and versed (see nursing log for details) . The total time of supervision by the attending physician was approximately 30 minutes. FINDINGS: Axial CT images demonstrates biopsy needle within the right posterior pelvis bone. IMPRESSION: CT-guided biopsy of the right posterior pelvis bone.
== END | disposition home or self-care (01) ==
LOC: CT 10:46
PROVIDERS: ATTEND Internal Medicine
DX: M89.9 Disorder of bone, unspecified (principal)
CPT/HCPCS: 10005; 20220; 72192; 77012; J2250

== ENCOUNTER → 2024-09-09 | Outpatient (CLI) | payer OTHER ==
[2024-09-09 09:12] LABS: Basophils # (auto) 0 10 ^3/uL (0-0.2); Basophils % (auto) 0.4 % (0.0-2.0); Monocytes # (auto) 0.8 10 ^3/uL (0-1.3)
[2024-09-09 09:13] LABS: Eosinophils # (auto) 0.3 10 ^3/uL (0-0.8); Eosinophils % (auto) 5.2 % (0.0-7.0); Hematocrit 22.3 % (41.0-53.0); Lymphocytes # (auto) 2.5 10 ^3/uL (0.4-5.4); Mean Corpuscular Hgb Conc. 31.1 g/dL (32.0-36.0); Monocytes % (auto) 13.2 % (0.0-12.0); Neutrophils # (auto) 2.6 10 ^3/uL (1.6-8.6); Neutrophils % (auto) 41.2 % (37.0-80.0); Platelet Count (auto) 379 10^3/uL (140-450); Red Blood Cells 2.89 10^6/uL (4.5-5.90); Red Cell Distribution Width 15.8 % (11.8-14.3); White Blood Cell 6.3 10^3/uL (4.4-10.8)
[2024-09-09 09:35] LABS: Hemoglobin 6.9 g/dL (13.5-17.5)
[2024-09-09 09:45] LABS: Protein, Urine 11.9 mg/dL (1-14)
[2024-09-09 09:47] LABS: Creatinine, Urine 85.07 mg/dL (30.0-125.0); Urine Protein/Creatinine Ratio 0.14
[2024-09-09 09:53] LABS: Alanine Aminotransferase 13 U/L (7-40); Alkaline Phosphatase 51 U/L (46-116); Anion Gap 10 (5-15); Aspartate Aminotransferase 14 U/L (13-40); BUN/Creatinine Ratio 12.2 (10.0-20.0); Calcium 9.7 mg/dL (8.7-10.4); Carbon Dioxide 21 mmol/L (20-31); Glucose 92 mg/dL (74-106); Potassium 5.1 mmol/L (3.5-5.1); Sodium 139 mmol/L (136-145)
[2024-09-09 09:54] LABS: Bilirubin, Total 0.3 mg/dL (0.2-1.0)
[2024-09-09 10:06] LABS: Albumin 5.1 g/dL (3.2-4.8); Blood Urea Nitrogen 25 mg/dL (9-23); Chloride 108 mmol/L (98-107); Total Protein 8.3 g/dL (5.7-8.2)
[2024-09-10 08:07] LABS: Immunoglobulin A 310 mg/dL (61-437); Immunoglobulin G, Serum 1615 mg/dL (603-1613); Immunoglobulin M 58 mg/dL (15-143)
[2024-09-10 11:07] LABS: Kappa Lite Chain Free Serum 239.4 mg/L (3.3-19.4)
== END | disposition home or self-care (01) ==
LOC: LAB 08:40
PROVIDERS: ATTEND Student in an Organized Health Care Education/Training Program
DX: M89.50 Osteolysis, unspecified site (principal); D47.2 Monoclonal gammopathy; D64.9 Anemia, unspecified
CPT/HCPCS: 36415; 80053; 82570; 82784; 83521; 84155; 84156; 84165; 85025; 86334; 86335

== ENCOUNTER 2024-09-28 07:33 | Inpatient (IN) | payer OTHER ==
[2024-09-28] VITALS (22 sets, daily range): BP systolic 133–157; BP diastolic 46–69; PULSE 65–88; RESP 12–19; TEMP 95.5–99.5; O2SAT 97–99
[~2024-09-28] VITALS: Ht 175.3 cm; Wt 97.0 kg
[~2024-09-28 07:33] MED LIST changes: +AMLO1TAB23 PO; -SIMV20TA20; +SIMV20TA20 PO; +SPIR25TA8 PO
--- NOTE | 2024-09-28 08:45 | ED.PDOC ---
History of Present Illness HPI Comments 83 year old male presents to the ED with a chief complaint of generalized weakness onset 4 months. Patient states he has been experienced generalized weakness, fatigue, for the past 4-5 months. Patient went to see PCP, was sent to ED due to low hemoglobin and possible blood transfusion. PMHx HTN, HLD. Denies headache, dizziness, chest pain, shortness of breath, nausea, vomiting, diarrhea, abdominal pain, fever, chills. No other symptoms or modifying factors present at this time. Chief Complaint: Abnormal LAB's Time Seen by MD: 08:20 Primary Care Provider: MATTHIAS Reviewed Notes: Medications, Allergies Allergies: Coded Allergies: NO KNOWN ALLERGIES (Unverified , 08/21/21) Home Meds Active Scripts Acetaminophen (Tylenol) 325 Mg Cap, 325 MG PO Q4HPRN PRN, #30 CAP 0 Refills Take 1-2 caps po q4h prn for pain/fever (Do not exceed 3,000mg of acetaminophen in 24 hours) Prov:LIZETH SONGP 07/23/23 Acetaminophen (Tylenol 8 Hour Arthritis) 650 Mg Tab, 650 MG PO TID, #30 TAB Prov:JAMARCUS VINSON 05/03/23 Oseltamivir Phosphate (Tamiflu) 75 Mg Cap, 75 MG PO BID for 5 Days, #10 CAP Prov:JAMARCUS VINSON 05/03/23 Azithromycin (Azithromycin) 500 Mg Tab, 1 TAB PO DAILY, #5 TAB Prov:JAMARCUS VINSON 05/03/23 Acetaminophen (Tylenol 8 Hour Arthritis) 650 Mg Tab, 650 MG PO TID, #30 TAB Prov:JAMARCUS VINSON 11/09/21 Reported Medications Amlodipine Besylate (Amlodipine Besylate) 5 Mg Tab, 10 MG PO DAILY, MG 11/29/19 Hctz (Hydrochlorothiazide) 25 Mg Tab, 25 MG PO DAILY, TAB 11/29/19 Losartan Potassium (Losartan Potassium) 50 Mg Tab, 50 MG PO DAILY for 30 Days, MG 11/29/19 Aspirin (Aspir-Low) 81 Mg Tab, 81 MG PO DAILY for 30 Days, MG 08/01/16 Simvastatin (Simvastatin) 20 Mg Tab, DAILY 11/28/10 Information Source: Patient Mode of Arrival: Ambulatory Severity: Moderate Timing: Months Duration: Since onset Prehospital treatment: None Past Medical History PAST MEDICAL HISTORY: High Lipids, HTN Surgical History: Denies all surgeries Family History Family History: Reviewed,noncontributory to illness, Family hx of HTN Social History Smoker: Non-Smoker Alcohol: Denies ETOH Use Drugs: Denies Drug Use Lives In: Home Constitutional: reports: fatigue, weakness; denies: chills, diaphoresis, fever, malaise, sweats, others EENTM: denies: blurred vision, double vision, ear bleeding, ear discharge, ear drainage, ear pain, ear ringing, eye pain, eye redness, hearing loss, mouth pain, mouth swelling, nasal discharge, nose bleeding, nose congestion, nose pain, photophobia, tearing, throat pain, throat swelling, voice changes, others Respiratory: denies: cough, hemoptysis, orthopnea, SOB at rest, shortness of breath, SOB with excertion, stridor, wheezing, others Cardiovascular: denies: chest pain, dizzy spells, diaphoresis, Dyspnea on exertion, edema, irregular heart beat, left arm pain, lightheadedness, palpitations, PND, syncope, others Gastrointestinal: denies: abdomen distended, abdominal pain, blood streaked bowels, constipated, diarrhea, dysphagia, difficulty swallowing, hematemesis, melena, nausea, poor appetite, poor fluid intake, rectal bleeding, rectal pain, vomiting, others Genitourinary: denies: burning, dysuria, flank pain, frequency, hematuria, incontinence, penile discharge, penile sore, pain, testicle pain, testicle swelling, urgency, others Neurological: reports: weakness; denies: dizziness, fainting, headache, left sided numbness, left sided weakness, numbness, paresthesia, pre-existing deficit, right sided numbness, right sided weakness, seizure, speech problems, tingling, tremors, others Musculoskeletal: denies: back pain, gout, joint pain, joint swelling, muscle pain, muscle stiffness, neck pain, others Integumetry: denies: bruises, change in color, change in hair/nails, dryness, laceration, lesions, lumps, rash, wounds, others Allergic/Immunocompromised: denies: Difficulty Healing, Frequent Infections, Hives, Itching, others Hematologic/Lymphatic: denies: anemia, blood clots, easy bleeding, easy bruising, swollen glands, others Endocrine: denies: excessive hunger, excessive sweating, excessive thirst, excessive urination, flushing, intolerance to cold, intolerance to heat, unexplained weight gain, unexplained weight loss, others Psychiatric: denies: anxiety, bipolar disorder, depression, hopeless, panic disorder, schizophrenia, sleepless, suicidal, others All Other Systems: Reviewed and Negative Physical Exam General Appearance: No Apparent Distress, Normal HEENT: Normal ENT Inspection, Pharynx Normal, TMs Normal Neck: Full Range of Motion, Non-Tender, Normal, Normal Inspection Respiratory: Chest Non-Tender, Lungs Clear, No Accessory Muscle Use, No Respiratory Distress, Normal Breath Sounds Cardiovascular: No Edema, No JVD, No Murmur, No Gallop, Normal Peripheral Pulses, Regular Rate/Rhythm Breast Exam: Deferred Gastrointestinal: No Organomegaly, Non Tender, No Pulsatile Mass, Normal Bowel Sounds, Soft Genitalia: Deferred Pelvic: Deferred Rectal: Deferred Extremities: No calf tenderness, Normal capillary refill, Normal inspection, Normal range of motion, Non-tender, No pedal edema Musculoskeletal : Apperance: Normal Neurologic: Alert, 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 Was a procedure done?: No Differential Dx Considerations may include: Symptomatic anemia, ACS, viral syndrome X-Ray, Labs, Meds, VS Vital Signs Date Time Temp Pulse Resp B/P (MAP) Pulse Ox O2 Delivery O2 Flow Rate FiO2 09/28/24 09:45 99.4 78 18 160/67 (98) 98 99.4 09/28/24 09:45 73 15 98 Room Air* 0 21 09/28/24 07:47 99.5 89 16 141/66 (91) 97 99.5 Lab Test 09/28/24 09:23 09/28/24 08:34 Range/Units Troponin I High Sensitivity 113 *H 97 *H </=54 ng/L White Blood Count 7.2 4.4-10.8 10^3/uL Red Blood Count 2.47 L 4.5-5.90 10^6/uL Hemoglobin 5.7 *L 13.5-17.5 g/dL Hematocrit 18.4 L 41.0-53.0 % Mean Corpuscular Volume 74.3 L 80.0-100.0 fL Mean Corpuscular Hemoglobin 22.9 L 28.0-32.0 pg Mean Corpuscular Hemoglobin Concent 30.9 L 32.0-36.0 g/dL Red Cell Distribution Width 16.3 H 11.8-14.3 % Platelet Count 300 140-450 10^3/uL Mean Platelet Volume 7.0 6.9-10.8 fL Neutrophils (%) (Auto) 64.4 37.0-80.0 % Lymphocytes (%) (Auto) 19.3 10.0-50.0 % Monocytes (%) (Auto) 12.3 H 0.0-12.0 % Eosinophils (%) (Auto) 3.7 0.0-7.0 % Basophils (%) (Auto) 0.3 0.0-2.0 % Neutrophils # (Auto) 4.7 1.6-8.6 10 ^3/uL Lymphocytes # (Auto) 1.4 0.4-5.4 10 ^3/uL Monocytes # (Auto) 0.9 0-1.3 10 ^3/uL Eosinophils # (Auto) 0.3 0-0.8 10 ^3/uL Basophils # (Auto) 0 0-0.2 10 ^3/uL Nucleated Red Blood Cells 0.0 % Prothrombin Time 10.3 9.3-11.8 sec Prothrombin Time INR 0.97 0.9-1.15 Activated Partial Thromboplast Time 22.9 L 24.5-34.5 SEC Sodium Level 139 136-145 mmol/L Potassium Level 4.7 3.5-5.1 mmol/L Chloride Level 108 H 98-107 mmol/L Carbon Dioxide Level 23 20-31 mmol/L Anion Gap 8 5-15 Blood Urea Nitrogen 28 H 9-23 mg/dL Creatinine 2.06 H 0.700-1.30 mg/dL Glomerular Filtration Rate Calc 31 >90 mL/min BUN/Creatinine Ratio 13.6 10.0-20.0 Serum Glucose 91 74-106 mg/dL Calcium Level 9.6 8.7-10.4 mg/dL [facility] [id number] [place] [id number] Ph: [phone] DIAGNOSTIC IMAGING Diagnostic Imaging Report : [id number] Signed PATIENT: MARY HEREDIA ACCT: [id number] UNIT: [id number] : 1940 LOC: ER ROOM / BED: / AGE / SEX: 83 / M ADM STATUS: REG ER SERVICE 3 ORDERING PHYSICIAN: ANAMIKA CONTRERAS MD PROCEDURE(s): CXRP - CHEST PORTABLE REASON: symptomatic anemia ORDER NUMBER(s): [id number], ACCESSION NUMBER(s): [id number] CHEST RADIOGRAPH Indication: symptomatic anemia Technique: Single frontal view of the chest was obtained COMPARISON: XY CHEST PORTABLE on DOS: 05/24/24, CHEST PORTABLE on DOS: 05/09/22, CXRP on DOS: 05/09/22 FINDINGS: Lines and Tubes: None Lungs: Clear Pleura: No effusion. No pneumothorax. Cardiomediastinal contours: Unremarkable Bones: Unremarkable IMPRESSION: No acute disease. ATED BY: IZAIAH HOOKS MD DICTATED DATE/TIME: 09/28/24944 SIGNED BY: IZAIAH HOOKS MD SIGNED DATE/TIME: 09/28/24944 CC: Time of 1ST Reevaluation: 08:50 Reevaluation 1ST: Improved Patient Education/Counseling: Diagnosis, Treatment, Prognosis Family Education/Counseling: No Family Present Additional Information The following tests were ordered, and results were reviewed by me: PTPTT, TYPE AND SCREEN, BMP, CBC, TROP-x3, XY CHEST I reviewed and agreed with the following test results read by other providers: ART CHEST I discussed treatment and results with medical personnel and: Patient Comprehensive systems review obtained and negative except for what is stated in the HPI. Departure 1 Departure Time of Disposition: 10:42 (Patient's CBC shows a hemoglobin of 5.7. Patient with symptomatic anemia and elevated troponin. We will admit patient for further workup and expert consultation) Impression: Primary Impression: Symptomatic anemia Additional Impressions: Generalized weakness Shortness of breath Disposition: ADMITTED INPATIENT Admit to: [facility] Condition: Guarded Critical Care Note Critical Care Time?: Yes Critical care comment: Shortness of breath and symptomatic anemia Authorized and Performed by: Anamika Contreras MD Total critical care time: Approximately 39 minutes Due to a high probability of clinically significant, life threatening deterio ration, the patient required my highest level of preparedness to intervene emergently and I personally spent this critical care time directly and personally managing the patient. This critical care time included obtaining a history; examining the patient; pulse oximetry; ordering and review of studies; arranging urgent treatment with development of a management plan; evaluation of patient's response to treatment; frequent reassessment; and, discussions with other providers. This critical care time was performed to assess and manage the high probability of imminent, life-threatening deterioration that could result in multi-organ failure. It was exclusive of separately billable procedures and treating other patients and teaching time. Please see my other sections and the rest of the note for further information on patient assessment and treatment. Stability Stability form required: No I personally scribed for ANAMIKA CONTRERAS MD ([email or web address]) on 09/28/24 at 08:45. Electronically submitted by Caren Suárez ([email or web address]). I personally scribed for ANAMIKA CONTRERAS MD ([email or web address]) on 09/28/24 at 08:55. Electronically submitted by Caren Suárez ([email or web address]). I personally scribed for ANAMIKA CONTRERAS MD ([email or web address]) on 09/28/24 at 10:00. Electronically submitted by Caren Suárez ([email or web address]). ANAMIKA CONTRERAS MD Sep 28, 2024 08:45
[2024-09-28 09:01] LABS: Basophils # (auto) 0 10 ^3/uL (0-0.2); Basophils % (auto) 0.3 % (0.0-2.0); White Blood Cell 7.2 10^3/uL (4.4-10.8)
[2024-09-28 09:04] LABS: Eosinophils # (auto) 0.3 10 ^3/uL (0-0.8); Eosinophils % (auto) 3.7 % (0.0-7.0); Hematocrit 18.4 % (41.0-53.0); Lymphocytes # (auto) 1.4 10 ^3/uL (0.4-5.4); Lymphocytes % (auto) 19.3 % (10.0-50.0); Mean Corpuscular Hemoglobin 22.9 pg (28.0-32.0); Mean Corpuscular Hgb Conc. 30.9 g/dL (32.0-36.0); Mean Corpuscular Volume 74.3 fL (80.0-100.0); Monocytes # (auto) 0.9 10 ^3/uL (0-1.3); Monocytes % (auto) 12.3 % (0.0-12.0); Neutrophils # (auto) 4.7 10 ^3/uL (1.6-8.6); Neutrophils % (auto) 64.4 % (37.0-80.0); Platelet Count (auto) 300 10^3/uL (140-450); Red Blood Cells 2.47 10^6/uL (4.5-5.90); Red Cell Distribution Width 16.3 % (11.8-14.3)
[2024-09-28 09:07] LABS: Hemoglobin 5.7 g/dL (13.5-17.5)
[2024-09-28 09:16] LABS: Potassium 4.7 mmol/L (3.5-5.1); Sodium 139 mmol/L (136-145)
[2024-09-28 09:17] LABS: Anion Gap 8 (5-15); Calcium 9.6 mg/dL (8.7-10.4); Carbon Dioxide 23 mmol/L (20-31)
[2024-09-28 09:19] LABS: INR 0.97 (0.9-1.15); Partial Thromboplastin Time 22.9 SEC (24.5-34.5); Prothrombin Time 10.3 sec (9.3-11.8)
[2024-09-28 09:22] LABS: BUN/Creatinine Ratio 13.6 (10.0-20.0); Blood Urea Nitrogen 28 mg/dL (9-23); Chloride 108 mmol/L (98-107); Glucose 91 mg/dL (74-106)
--- NOTE | 2024-09-28 09:47 | DVH ---
CHEST RADIOGRAPH Indication: symptomatic anemia Technique: Single frontal view of the chest was obtained COMPARISON: XY CHEST PORTABLE on DOS: 05/24/24, CHEST PORTABLE on DOS: 05/09/22, CXRP on DOS: 05/09/22 FINDINGS: Lines and Tubes: None Lungs: Clear Pleura: No effusion. No pneumothorax. Cardiomediastinal contours: Unremarkable Bones: Unremarkable IMPRESSION: No acute disease.
[2024-09-28] MEDS ORDERED: HYDROcodone-ACET 5/325MG TAB PO PRN (12:45)
[2024-09-28] MEDS ORDERED: ONDANSETRON HCL 4 MG/2 ML VIAL IV PRN (12:45)
[2024-09-28] MEDS ORDERED: DOCUSATE SOD 100 MG CAP PO PRN (12:45)
[2024-09-28] MEDS ORDERED: MORPHINE SULFATE INJ 2 MG/ml SYRG IV PRN (12:45)
[2024-09-28] MEDS ORDERED: ACETAMINOPHEN 325 MG TAB PO PRN (12:45)
[2024-09-28] MEDS ORDERED: NITROGLYCERIN 0.4 MG SL TAB SL PRN (12:45)
--- NOTE | 2024-09-28 12:50 | DVHHP2 ---
History of Present Illness Reason for Visit: Abnormal labs History of Present Illness Leonardo Pacheco is an 83-year-old male with past medical history of hypertension, and hyperlipidemia, who came to the hospital due to abnormal labs. Patient states that he has not been feeling well for a few months. He went to his primary care provider who ordered labs. The labs came back showing severe anemia, so the office called him and told him to go to the hospital to be evaluated. Labs here showed severe anemia with Hbg of 5.7 & Hct of 18.4. Patient denies any nausea, vomiting, diarrhea, blood in stool, or blood in urine. He states he has just been becoming increasingly fatigued over the last 2-3 months. Patient was also found to have elevated troponin and acute kidney injury, likely due to low Hgb and demand ischemia. Cardiovascular: HTN, hyperipidemia Past Surgical History: None Family History: None Smoke: No ALCOHOL: rare Drugs: None Lives: with Family Domestic Violence: Neg Review of Systems Constitutional: Yes: Weakness, Malaise; No: Fever, Chills, Sweats, Other Eyes: No: Pain, Vision change, Conjunctivae inflammation, Eyelid inflammation, Other, Redness ENT: No: Ear pain, Ear discharge, Nose pain, Nose discharge, Nose congestion, Mouth pain, Mouth swelling, Throat pain, Throat swelling, Other Respiratory: No: Cough, Dry, Shortness of breath, SOB with excertion, Wheezing, Hemoptysis, Pleuritic Pain, Sputum, Wheezing, Other Cardiovascular: No: Chest Pain, Palpitations, Orthopnea, Paroxysmal Noc. Dyspnea, Edema, Lt Headedness, Other Gastrointestinal: No: Nausea, Vomiting, Abdominal Pain, Diarrhea, Constipation, Melena, Hematochezia, Other Genitourinary: No Dysuria, No Frequency, No Incontinence, No Hematuria, No Rete ntion, No Other Musculoskeletal: No: other, neck pain, shoulder pain, arm pain, back pain, hand pain, leg pain, foot pain Skin: No: Rash, Lesions, Jaundice, Bruising, Other Neurological: No: Weakness, Numbness, Incoordination, Change in speech, Confusion, Seizures, Other Allergies: Coded Allergies: NO KNOWN ALLERGIES (Unverified , 08/21/21) Exam Vital Signs Vital Signs Date Time Temp Pulse Resp B/P (MAP) Pulse Ox O2 Delivery O2 Flow Rate FiO2 09/28/24 12:00 102 17 144/60 (88) 95 09/28/24 09:45 99.4 99.4 09/28/24 09:45 Room Air* 0 21 General Appearance: Alert, Oriented X3, Cooperative, mild distress HEENT: Atraumatic, PERRLA Respiratory: Clear to auscultation, Normal air movement Cardiovascular: Regular rate, Normal S1, Normal S2, No murmurs Abdominal: Normal bowel sounds, Soft, No tenderness, No hepatospenomegaly Extremities: No clubbing, No cyanosis, No edema, Normal pulses, No tenderness/swelling Skin: No rashes, No breakdown, No significant lesion Neuro: Normal gait, Normal speech, Strength at 5/5 X4 ext, Normal tone Psych/Mental Status: Mental status NL, Mood NL Labs/Xrays Labs Test 09/28/24 11:30 09/28/24 08:34 Range/Units Troponin I High Sensitivity 125 *H </=54 ng/L White Blood Count 7.2 4.4-10.8 10^3/uL Red Blood Count 2.47 L 4.5-5.90 10^6/uL Hemoglobin 5.7 *L 13.5-17.5 g/dL Hematocrit 18.4 L 41.0-53.0 % Mean Corpuscular Volume 74.3 L 80.0-100.0 fL Mean Corpuscular Hemoglobin 22.9 L 28.0-32.0 pg Mean Corpuscular Hemoglobin Concent 30.9 L 32.0-36.0 g/dL Red Cell Distribution Width 16.3 H 11.8-14.3 % Platelet Count 300 140-450 10^3/uL Mean Platelet Volume 7.0 6.9-10.8 fL Neutrophils (%) (Auto) 64.4 37.0-80.0 % Lymphocytes (%) (Auto) 19.3 10.0-50.0 % Monocytes (%) (Auto) 12.3 H 0.0-12.0 % Eosinophils (%) (Auto) 3.7 0.0-7.0 % Basophils (%) (Auto) 0.3 0.0-2.0 % Neutrophils # (Auto) 4.7 1.6-8.6 10 ^3/uL Lymphocytes # (Auto) 1.4 0.4-5.4 10 ^3/uL Monocytes # (Auto) 0.9 0-1.3 10 ^3/uL Eosinophils # (Auto) 0.3 0-0.8 10 ^3/uL Basophils # (Auto) 0 0-0.2 10 ^3/uL Nucleated Red Blood Cells 0.0 % Prothrombin Time 10.3 9.3-11.8 sec Prothrombin Time INR 0.97 0.9-1.15 Activated Partial Thromboplast Time 22.9 L 24.5-34.5 SEC Sodium Level 139 136-145 mmol/L Potassium Level 4.7 3.5-5.1 mmol/L Chloride Level 108 H 98-107 mmol/L Carbon Dioxide Level 23 20-31 mmol/L Anion Gap 8 5-15 Blood Urea Nitrogen 28 H 9-23 mg/dL Creatinine 2.06 H 0.700-1.30 mg/dL Glomerular Filtration Rate Calc 31 >90 mL/min BUN/Creatinine Ratio 13.6 10.0-20.0 Serum Glucose 91 74-106 mg/dL Calcium Level 9.6 8.7-10.4 mg/dL CHEST RADIOGRAPH FINDINGS: Lines and Tubes: None Lungs: Clear Pleura: No effusion. No pneumothorax. Cardiomediastinal contours: Unremarkable Bones: Unremarkable IMPRESSION: No acute disease. Assessment/Plan Assessment/Plan Assessment: Symptomatic anemia, Elevated troponin, Acute kidney injury, Hypertension, Hyperlipidemia, Plan: Admit to Tele, Transfuse 2 units PRBC, Manage/Monitor H&H closely, Stool for occult blood, Consider GI consult, Consider cardiology consult, EKG, Anemia panel, Repeat CBC after 2 units PRBC transfused, Home medications reconciled, Plan discussed with: Patient Date of Service: Sep 28, 2024 Billing Provider: MUNIR AMEZCUA Common Visit Codes: [id number] INP/OBS CARE (MOD) MUNIR AMEZCUA Sep 28, 2024 12:50
[2024-09-28 12:58] LABS: Urine Bacteria FEW /hpf (None Seen); Urine Blood Negative /uL (Negative); Urine Clarity Clear (Clear); Urine Color Colorless (Yellow); Urine Protein, UAD Negative (Negative); Urine Specific Gravity 1.006 (1.001-1.035); Urine Squamous Epithelial Cell FEW /hpf (<5); Urine Urobilinogen Normal (Negative); Urine WBC 1 /HPF (0-3)
[2024-09-28 21:25] LABS: Basophils # (auto) 0 10 ^3/uL (0-0.2); Basophils % (auto) 0.2 % (0.0-2.0); Eosinophils # (auto) 0.4 10 ^3/uL (0-0.8); Eosinophils % (auto) 3.9 % (0.0-7.0); Hemoglobin 8.8 g/dL (13.5-17.5); Lymphocytes # (auto) 2.5 10 ^3/uL (0.4-5.4); Lymphocytes % (auto) 24.6 % (10.0-50.0); Mean Corpuscular Hemoglobin 23.9 pg (28.0-32.0); Mean Corpuscular Hgb Conc. 30.2 g/dL (32.0-36.0); Mean Corpuscular Volume 79.3 fL (80.0-100.0); Monocytes # (auto) 1.4 10 ^3/uL (0-1.3); Monocytes % (auto) 14.2 % (0.0-12.0); Neutrophils # (auto) 5.8 10 ^3/uL (1.6-8.6); Neutrophils % (auto) 57.1 % (37.0-80.0); Platelet Count (auto) 318 10^3/uL (140-450); Red Blood Cells 3.66 10^6/uL (4.5-5.90); White Blood Cell 10.1 10^3/uL (4.4-10.8)
[2024-09-28] MEDS: ATORVASTATIN 20 MG TAB PO SCH (23:05)
[2024-09-29] VITALS (8 sets, daily range): BP systolic 128–153; BP diastolic 53–68; PULSE 66–74; RESP 16–18; TEMP 97.6–98.8; O2SAT 97–100
[2024-09-29 07:20] LABS: Basophils # (auto) 0 10 ^3/uL (0-0.2); Basophils % (auto) 0.3 % (0.0-2.0); Eosinophils # (auto) 0.4 10 ^3/uL (0-0.8); Eosinophils % (auto) 5.1 % (0.0-7.0); Hematocrit 25.1 % (41.0-53.0); Hemoglobin 7.9 g/dL (13.5-17.5); Lymphocytes # (auto) 1.6 10 ^3/uL (0.4-5.4); Lymphocytes % (auto) 23.3 % (10.0-50.0); Mean Corpuscular Hemoglobin 24.3 pg (28.0-32.0); Mean Corpuscular Hgb Conc. 31.5 g/dL (32.0-36.0); Mean Corpuscular Volume 77.3 fL (80.0-100.0); Monocytes # (auto) 0.9 10 ^3/uL (0-1.3); Monocytes % (auto) 12.8 % (0.0-12.0); Neutrophils # (auto) 4.2 10 ^3/uL (1.6-8.6); Neutrophils % (auto) 58.5 % (37.0-80.0); Platelet Count (auto) 283 10^3/uL (140-450); Red Blood Cells 3.25 10^6/uL (4.5-5.90); Red Cell Distribution Width 17.4 % (11.8-14.3); White Blood Cell 7.1 10^3/uL (4.4-10.8)
[2024-09-29 07:24] LABS: % Iron Saturation 10.5 % (20-55)
[2024-09-29 07:27] LABS: Folate (Folic Acid) 10.73 ng/mL (>5.38)
[2024-09-29 07:31] LABS: Alanine Aminotransferase 11 U/L (7-40); Albumin 4.4 g/dL (3.2-4.8); Alkaline Phosphatase 57 U/L (46-116); Anion Gap 9 (5-15); BUN/Creatinine Ratio 15.8 (10.0-20.0); Calcium 9.6 mg/dL (8.7-10.4); Carbon Dioxide 21 mmol/L (20-31); Glucose 82 mg/dL (74-106); Sodium 139 mmol/L (136-145); Total Protein 7.3 g/dL (5.7-8.2)
[2024-09-29 07:32] LABS: Bilirubin, Total 0.4 mg/dL (0.2-1.0)
[2024-09-29 07:33] LABS: Aspartate Aminotransferase 13 U/L (13-40); Blood Urea Nitrogen 28 mg/dL (9-23); Chloride 109 mmol/L (98-107)
[2024-09-29] MEDS: amLODIPine BESYLATE 5 MG TAB PO SCH (10:15)
[2024-09-29] MEDS: SPIRONOLACTONE 25 MG TAB PO SCH (10:15)
--- NOTE | 2024-09-29 13:09 | DVHPN2 ---
Reviewed: Care Plan, Labs, Previous Orders, Radiology Changes from previous H/P or p: No Changes General: Per HPI Eyes: No Pain, No Vision change, No Conjunctivae inflammation, No Eyelid inflammation, No Other, No Redness ENT: No Ear pain, No Ear discharge, No Nose pain, No Nose discharge, No Nose congestion, No Mouth pain, No Mouth swelling, No Throat pain, No Throat swelling, No Other Cardiovascular: No Chest Pain, No Palpitations, No Orthopnea, No Paroxysmal Noc. Dyspnea, No Edema, No Lt Headedness, No Other Respiratory: No Cough, No Dry, No Shortness of breath, No SOB with excertion, No Wheezing, No Hemoptysis, No Pleuritic Pain, No Sputum, No Other Gastrointestinal: No Nausea, No Vomiting, No Abdominal Pain, No Diarrhea, No Constipation, No Melena, No Hematochezia, No Other Genitourinary: No Dysuria, No Frequency, No Incontinence, No Hematuria, No Retention, No Other Musculoskeletal: No other, No neck pain, No shoulder pain, No arm pain, No back pain, No hand pain, No leg pain, No foot pain Skin: No Rash, No Lesions, No Jaundice, No Bruising, No Other Objective Vitals Vital Signs Date Time Temp Pulse Resp B/P (MAP) Pulse Ox O2 Delivery O2 Flow Rate FiO2 09/29/24 12:53 97.9 69 16 137/68 (91) 98 97.9 09/29/24 08:00 Room Air* 0 21 Intake/Output Intake and Output 09/29/24 07:00 Intake Total 1500 ml Output Total 50 ml Balance 1450 ml Intake Oral 300 ml Blood Product 1200 ml Output Urine Total 50 ml # Voids 1 General Appearance: Alert, Oriented X3, Cooperative Cardiovascular: Regular rate, Normal S1, Normal S2 Abdomen: Normal bowel sounds, Soft Medications Current Medications Medications Dose Ordered Sig/Manjit Route Start Time Stop Time Status Last Admin Dose Admin Acetaminophen/ Hydrocodone Bitart 1 tab Q4HP PRN PO 09/28/24 12:45 Ondansetron HCl 4 mg Q4HP PRN IV 09/28/24 12:45 Docusate Sodium 100 mg BIDPRN PRN PO 09/28/24 12:45 Acetaminophen 650 mg Q6HP PRN PO 09/28/24 12:45 Nitroglycerin 0.4 mg Q5MINP PRN SL 09/28/24 12:45 Morphine Sulfate 2 mg Q30M PRN IV 09/28/24 12:45 Amlodipine Besylate 10 mg DAILY PO 09/29/24 10:00 09/29/24 10:15 10 MG Losartan Potassium 50 mg DAILY PO 09/29/24 10:00 Hold Spironolactone 25 mg DAILY PO 09/29/24 10:00 09/29/24 10:15 25 MG Atorvastatin Calcium 20 mg HS PO 09/28/24 22:00 09/28/24 23:05 20 MG Laboratory Results Laboratory Tests 09/29/24 06:33 Chemistry Test 09/29/24 06:33 Albumin 4.4 g/dL (3.2-4.8) Calcium Level 9.6 mg/dL (8.7-10.4) Total Protein 7.3 g/dL (5.7-8.2) LFT Test 09/29/24 06:33 Alanine Aminotransferase (ALT) 11 U/L (7-40) Alkaline Phosphatase 57 U/L (46-116) Aspartate Amino Transferase (AST) 13 U/L (13-40) Total Bilirubin 0.4 mg/dL (0.2-1.0) Urinalysis Test 09/28/24 11:54 Urine Color Colorless (Yellow) Urine Clarity Clear (Clear) Urine pH 6.0 (5.0-9.0) Urine Specific [place] 1.006 (1.001-1.035) Urine Protein Negative (Negative) Urine Ketones Negative (Negative) Urine Blood Negative /uL (Negative) Urine Nitrite Negative (Negative) Urine Bilirubin Negative (Negative) Urine Urobilinogen Normal mg/dL (Negative) Urine Leukocyte Esterase Negative /uL (Negative) Urine RBC 1 /hpf (0 - 3) Urine Microscopic WBC 1 /HPF (0-3) Urine Squamous Epithelial Cells Few /hpf (<5) Urine Bacteria Few /hpf (None Seen) H Urine Glucose Normal mg/dL (Normal) Labs and/or images reviewed: Labs reviewed by me Assessment/Plan Assessment/Plan Leonardo Pacheco is an 83-year-old male with past medical history of hypertension, and hyperlipidemia, who came to the hospital due to abnormal labs. Patient states that he has not been feeling well for a few months. He went to his primary care provider who ordered labs. The labs came back showing severe anemia, so the office called him and told him to go to the hospital to be evaluated. Labs here showed severe anemia with Hbg of 5.7 & Hct of 18.4. Patient denies any nausea, vomiting, diarrhea, blood in stool, or blood in urine. He states he has just been becoming increasingly fatigued over the last 2-3 months. Patient was also found to have elevated troponin and acute kidney injury, likely due to low Hgb and demand ischemia. Symptomatic anemia, acute Elevated troponin, Acute kidney injury, Hypertension, Hyperlipidemia, Plan: Admit to Tele, Transfuse 2 units PRBC, Manage/Monitor H&H closely, Stool for occult blood, GI consult, Consider cardiology consult, EKG, Anemia panel, Repeat CBC after 2 units PRBC transfused, Home medications reconciled, 09/29/2024 pt to be seen by GI for scoping Plan discussed with: Patient My Orders Orders - BREANNE MEIER DO Procedure Category Date Status Time *Dr. Mitch De La Garza CONS 09/29/24 Verified 13:05 Date of Service: Sep 29, 2024 Billing Provider: BREANNE MEIER DO Common Visit Codes: [id number] INP/OBS CARE(HIGH) BREANNE MEIER DO Sep 29, 2024 13:09
--- NOTE | 2024-09-29 19:53 | DVHINCON2 ---
Date of service: Sep 29, [address] Camacho Reason for Consultation Anemia possible GI bleed History of Present Illness This 83-year-old male with a history of hypertension hyperlipidemia came to the hospital because of severe anemia he has not been feeling well the hemoglobin was found to be 5.7 with a hematocrit of 18.4 patient denied any gross bleeding in the urine no the blood patient has got history of hypertension and hyperlipidemia patient has been evaluated by Dr. Penn for anemia and had a bone marrow done which was normal according to the patient Has complaints of some vague abdominal pain some some nausea anorexia no gross GI bleed Stool for occult blood is pending Patient had a colonoscopy more than a year ago which was normal as per the patient Past Medical History History of hypertension hyperlipidemia Past Surgical History None Family History: Diabetes mellitus G8 MOTHER G8 FATHER Family History Noncontributory Social History Denies smoking or drinking Allergies: Coded Allergies: NO KNOWN ALLERGIES (Unverified , 08/21/21) Home Meds Reported Medications Amlodipine Besylate (Amlodipine Besylate) 10 Mg Tab, 1 TAB PO DAILY for 90 Days, #90 09/29/24 Spironolactone (Spironolactone) 25 Mg Tab, 1 TAB PO DAILY for 90 Days, #90 09/28/24 Losartan Potassium (Losartan Potassium) 50 Mg Tab, 1 TAB PO DAILY for 90 Days, # 90 11/29/19 Simvastatin (Simvastatin) 20 Mg Tab, 1 TAB PO DAILY for 90 Days, #90 11/28/10 Discontinued Reported Medications Amlodipine Besylate (Amlodipine Besylate) 5 Mg Tab, 10 MG PO DAILY, MG 11/29/19 Aspirin (Aspir-Low) 81 Mg Tab, 81 MG PO DAILY for 30 Days, MG 08/01/16 Hctz (Hydrochlorothiazide) 25 Mg Tab, 25 MG PO DAILY, TAB 11/29/19 Discontinued Scripts Acetaminophen (Tylenol) 325 Mg Cap, 325 MG PO Q4HPRN PRN, #30 CAP 0 Refills Take 1-2 caps po q4h prn for pain/fever (Do not exceed 3,000mg of acetaminophen in 24 hours) Prov:LIZETH SONG SOFTWARE TRAINER 07/23/23 Acetaminophen (Tylenol 8 Hour Arthritis) 650 Mg Tab, 650 MG PO TID, #30 TAB Prov:JAMARCUS VINSON 05/03/23 Oseltamivir Phosphate (Tamiflu) 75 Mg Cap, 75 MG PO BID for 5 Days, #10 CAP Prov:JAMARCUS VINSON 05/03/23 Azithromycin (Azithromycin) 500 Mg Tab, 1 TAB PO DAILY, #5 TAB Prov:JAMARCUS VINSON 05/03/23 Acetaminophen (Tylenol 8 Hour Arthritis) 650 Mg Tab, 650 MG PO TID, #30 TAB Prov:JAMARCUS VINSON 11/09/21 Current Medications Current Medications Medications (Trade) Dose Ordered Sig/Manjit Route PRN Reason Start Time Stop Time Status Last Admin Amlodipine Besylate (Norvasc Tablet) 10 mg DAILY PO 09/29/24 10:00 09/29/24 10:15 Losartan Potassium (Cozaar Tablet) 50 mg DAILY PO 09/29/24 10:00 Hold Spironolactone (Aldactone) 25 mg DAILY PO 09/29/24 10:00 09/29/24 10:15 Atorvastatin Calcium (Lipitor) 20 mg HS PO 09/28/24 22:00 09/28/24 23:05 Review of Systems Noncontributory Vital Signs Vital Signs Date Time Temp Pulse Resp B/P (MAP) Pulse Ox O2 Delivery O2 Flow Rate FiO2 09/29/24 16:52 98.6 70 17 142/60 (87) 99 98.6 09/29/24 08:00 Room Air* 0 21 Physical Exam Moderately built and nourished male in no acute distress Vitals stable HEENT examination mild pallor Chest bilaterally symmetrical lungs are clear Cardiovascular unremarkable Abdomen is soft mild fullness in the epigastrium no rigidity no guarding bowel sounds normal Extremities no edema Neuro grossly intact Labs/Diagnostic Data Labs Test 09/29/24 06:33 09/28/24 11:54 09/28/24 11:30 09/28/24 08:34 Range/Units White Blood Count 7.1 # 4.4-10.8 10^3/uL Red Blood Count 3.25 L 4.5-5.90 10^6/uL Hemoglobin 7.9 L 13.5-17.5 g/dL Hematocrit 25.1 #L 41.0-53.0 % Mean Corpuscular Volume 77.3 L 80.0-100.0 fL Mean Corpuscular Hemoglobin 24.3 L 28.0-32.0 pg Mean Corpuscular Hemoglobin Concent 31.5 L 32.0-36.0 g/dL Red Cell Distribution Width 17.4 H 11.8-14.3 % Platelet Count 283 140-450 10^3/uL Mean Platelet Volume 7.2 6.9-10.8 fL Neutrophils (%) (Auto) 58.5 37.0-80.0 % Lymphocytes (%) (Auto) 23.3 10.0-50.0 % Monocytes (%) (Auto) 12.8 H 0.0-12.0 % Eosinophils (%) (Auto) 5.1 0.0-7.0 % Basophils (%) (Auto) 0.3 0.0-2.0 % Neutrophils # (Auto) 4.2 1.6-8.6 10 ^3/uL Lymphocytes # (Auto) 1.6 0.4-5.4 10 ^3/uL Monocytes # (Auto) 0.9 0-1.3 10 ^3/uL Eosinophils # (Auto) 0.4 0-0.8 10 ^3/uL Basophils # (Auto) 0 0-0.2 10 ^3/uL Nucleated Red Blood Cells 0.0 % Sodium Level 139 136-145 mmol/L Potassium Level 5.0 3.5-5.1 mmol/L Chloride Level 109 H 98-107 mmol/L Carbon Dioxide Level 21 20-31 mmol/L Anion Gap 9 5-15 Blood Urea Nitrogen 28 H 9-23 mg/dL Creatinine 1.77 H 0.700-1.30 mg/dL Glomerular Filtration Rate Calc 38 >90 mL/min BUN/Creatinine Ratio 15.8 10.0-20.0 Serum Glucose 82 74-106 mg/dL Calcium Level 9.6 8.7-10.4 mg/dL Iron Level 36 L 65-175 ug/dL Total Iron Binding Capacity 343 250-425 ug/dL Percent Iron Saturation 10.5 L 20-55 % Total Bilirubin 0.4 0.2-1.0 mg/dL Aspartate Amino Transferase (AST) 13 13-40 U/L Alanine Aminotransferase (ALT) 11 7-40 U/L Alkaline Phosphatase 57 46-116 U/L Total Protein 7.3 5.7-8.2 g/dL Albumin 4.4 3.2-4.8 g/dL Vitamin B12 Level 325 211-911 pg/mL Folic Acid 10.73 >5.38 ng/mL Urine Color Colorless Yellow Urine Clarity Clear Clear Urine pH 6.0 5.0-9.0 Urine Specific [place] 1.006 1.001-1.035 Urine Protein Negative Negative Urine Ketones Negative Negative Urine Blood Negative Negative /uL Urine Nitrite Negative Negative Urine Bilirubin Negative Negative Urine Urobilinogen Normal Negative mg/dL Urine Leukocyte Esterase Negative Negative /uL Urine RBC 1 0 - 3 /hpf Urine Microscopic WBC 1 0-3 /HPF Urine Squamous Epithelial Cells Few <5 /hpf Urine Bacteria Few H None Seen /hpf Urine Glucose Normal Normal mg/dL Troponin I High Sensitivity 125 *H </=54 ng/L Prothrombin Time 10.3 9.3-11.8 sec Prothrombin Time INR 0.97 0.9-1.15 Activated Partial Thromboplast Time 22.9 L 24.5-34.5 SEC Assessment 83-year-old with a history of hypertension hyperlipidemia came with severe weakness and tiredness and severe anemia of hemoglobin of 5.7 denied any gross GI bleeding but has been complaining of mild nonspecific abdominal pain in the epigastrium has history of anemia who for which he had workup including bone marrow biopsy which was unremarkable Had a colonoscopy apparently one year ago which was normal Labs showed that the hemoglobin is 5.7 had gone up to about eight after 2 units of transfusion and come down again to 7 gm stool for occult blood is pending Patient had a CT scan about a year ago which was unremarkable of the abdomen and pelvis Iron studies show iron-deficiency anemia Liver functions are normal Clinical impression anemia of undetermined etiology possible GI tract pathology can not be excluded with a severe anemia and with a hemoglobin of 5.7 though no gross bleeding seen Patient had a normal colonoscopy about a year ago or so as per the patient recommend an EGD evaluation to ensure there was no upper GI pathology to account for the anemia Procedure risks benefits alternatives explained to the patient and agreeable for the same Plan/Recommendation will recommend an EGD evaluation will recommend stool studies Follow hemoglobin closely Further workup and treatment depending upon the EGD I workup etc. will recommend also follow-up with Hematology Oncology Thank you Dr. Ramsey Plan discussed with: Patient SHAKIR RAMSEY MD Sep 29, 2024 19:53
[2024-09-30] VITALS (8 sets, daily range): BP systolic 134–151; BP diastolic 62–73; PULSE 63–77; RESP 13–22; TEMP 97.7–98.4; O2SAT 96–99
--- NOTE | 2024-09-30 11:26 | ECG ---
[facility] Test Date: 2024-09-28 Test Time: 11:31:39 Pat Name: MARY HEREDIA Department: ED Room: 0221T B Gender: M Mechanical Maintenance Foreman: SCOOBY : 1940 Requested By: ANAMIKA CONTRERAS Order Number: [id number] Reading MD: Yoel Meehan Measurements Intervals [place] Rate: 75 P: 63 MA: 185 QRS: 8 QRSD: 89 T: 56 QT: 403 QTc: 451 Interpretive Statements Sinus rhythm Baseline wander in lead(s) III Electronically Signed On 10-01-2024 13:39:39 PDT by Yoel Meehan Please click the below link to view image of tracing.
[2024-09-30] MEDS ORDERED: LIDOCAINE VISCOUS 2% 15ML UD ONE (12:20)
[2024-09-30] MEDS ORDERED: SODIUM CHLORIDE LOCK 10 ML ONE (12:20)
[2024-09-30] MEDS ORDERED: fentaNYL CITRATE 100 MCG/2 ML VL ONE (12:21)
[2024-09-30] MEDS ORDERED: diphenhdrAMINE HCL 50 MG/1 ML VL ONE (12:21)
[2024-09-30] MEDS ORDERED: MIDAZOLAM HCL 5 MG/ML-1ML VIAL ONE (12:21)
--- NOTE | 2024-09-30 12:57 | DVHOP2 ---
Operative Report DATE OF PROCEDURE: 09/30/24 INDICATIONS FOR THE PROCEDURE: Anemia possible GI blood PROCEDURE PERFORMED: 1. Esophagogastroduodenoscopy biopsy by cold forceps POSTOPERATIVE DIAGNOSIS: Small hiatal hernia Mild esophagitis LA classification B Mild antral gastritis No ulcers no bleeding no varices INFORMED CONSENT: The risks and benefits and alternatives were explained to the patient and informed consent was obtained. PROCEDURE IN DETAIL: The patient was kept NPO after midnight. In the endoscopy room, he was given IV fentanyl 75 mg and Versed 3 mg, titrated slowly to get him sedated. Olympus gastroscope was passed through the oropharynx into the stomach and the duodenum, and the findings were as follows. Esophagus: 1 cm hiatal hernia Mild esophagitis distal esophagus LA classification B biopsies taken with cold biopsy forceps No Esophageal ulcer No Esophageal stricture Stomach: Fundus: Normal Body and antrum Erythematous streaks suggestive of mild gastritis in the antrum distally biopsies taken with cold biopsy forceps Pylorus normal Duodenum Normal Endoscopic impression Small hiatal hernia Mild esophagitis Mild antral gastric No ulcers no bleeding Unable to explain the anemia from this study Suggestions will recommend to await the stool studies for occult, if positive anemia persist may need further evaluation including capsule endoscopy and other We will also recommend Hematology Oncology follow-up Thank you for asking me to take part in the care of this pleasant patient SHAKIR Carter MD Sep 30, 2024 12:57
--- NOTE | 2024-09-30 13:07 | DVHPN2 ---
Reviewed: Care Plan, Labs, Previous Orders, Radiology Changes from previous H/P or p: No Changes General: Per HPI Eyes: No Pain, No Vision change, No Conjunctivae inflammation, No Eyelid inflammation, No Other, No Redness ENT: No Ear pain, No Ear discharge, No Nose pain, No Nose discharge, No Nose congestion, No Mouth pain, No Mouth swelling, No Throat pain, No Throat swelling, No Other Cardiovascular: No Chest Pain, No Palpitations, No Orthopnea, No Paroxysmal Noc. Dyspnea, No Edema, No Lt Headedness, No Other Respiratory: No Cough, No Dry, No Shortness of breath, No SOB with excertion, No Wheezing, No Hemoptysis, No Pleuritic Pain, No Sputum, No Other Gastrointestinal: No Nausea, No Vomiting, No Abdominal Pain, No Diarrhea, No Constipation, No Melena, No Hematochezia, No Other Genitourinary: No Dysuria, No Frequency, No Incontinence, No Hematuria, No Retention, No Other Musculoskeletal: No other, No neck pain, No shoulder pain, No arm pain, No back pain, No hand pain, No leg pain, No foot pain Skin: No Rash, No Lesions, No Jaundice, No Bruising, No Other Objective Vitals Vital Signs Date Time Temp Pulse Resp B/P (MAP) Pulse Ox O2 Delivery O2 Flow Rate FiO2 09/30/24 08:56 98.1 77 20 151/62 (91) 98 98.1 09/30/24 07:30 Room Air* 0 21 Intake/Output Intake and Output 09/30/24 07:00 Intake Total 1700 ml Balance 1700 ml Intake Oral 1700 ml # Voids 6 # Bowel Movements 3 General Appearance: Alert, Oriented X3, Cooperative Cardiovascular: Regular rate, Normal S1, Normal S2 Abdomen: Normal bowel sounds, Soft Medications Current Medications Medications Dose Ordered Sig/Manjit Route Start Time Stop Time Status Last Admin Dose Admin Acetaminophen/ Hydrocodone Bitart 1 tab Q4HP PRN PO 09/28/24 12:45 Ondansetron HCl 4 mg Q4HP PRN IV 09/28/24 12:45 Docusate Sodium 100 mg BIDPRN PRN PO 09/28/24 12:45 Acetaminophen 650 mg Q6HP PRN PO 09/28/24 12:45 Nitroglycerin 0.4 mg Q5MINP PRN SL 09/28/24 12:45 Morphine Sulfate 2 mg Q30M PRN IV 09/28/24 12:45 Amlodipine Besylate 10 mg DAILY PO 09/29/24 10:00 09/29/24 10:15 10 MG Losartan Potassium 50 mg DAILY PO 09/29/24 10:00 Hold Spironolactone 25 mg DAILY PO 09/29/24 10:00 09/29/24 10:15 25 MG Atorvastatin Calcium 20 mg HS PO 09/28/24 22:00 09/29/24 21:20 20 MG Laboratory Results Laboratory Tests 09/29/24 06:33 Urinalysis Test 09/28/24 11:54 Urine Color Colorless (Yellow) Urine Clarity Clear (Clear) Urine pH 6.0 (5.0-9.0) Urine Specific [place] 1.006 (1.001-1.035) Urine Protein Negative (Negative) Urine Ketones Negative (Negative) Urine Blood Negative /uL (Negative) Urine Nitrite Negative (Negative) Urine Bilirubin Negative (Negative) Urine Urobilinogen Normal mg/dL (Negative) Urine Leukocyte Esterase Negative /uL (Negative) Urine RBC 1 /hpf (0 - 3) Urine Microscopic WBC 1 /HPF (0-3) Urine Squamous Epithelial Cells Few /hpf (<5) Urine Bacteria Few /hpf (None Seen) H Urine Glucose Normal mg/dL (Normal) Assessment/Plan Assessment/Plan Leonardo Pcaheco is an 83-year-old male with past medical history of hypertension, and hyperlipidemia, who came to the hospital due to abnormal labs. Patient states that he has not been feeling well for a few months. He went to his primary care provider who ordered labs. The labs came back showing severe anemia, so the office called him and told him to go to the hospital to be evaluated. Labs here showed severe anemia with Hbg of 5.7 & Hct of 18.4. Patient denies any nausea, vomiting, diarrhea, blood in stool, or blood in urine. He states he has just been becoming increasingly fatigued over the last 2-3 months. Patient was also found to have elevated troponin and acute kidney injury, likely due to low Hgb and demand ischemia. Symptomatic anemia, acute Elevated troponin, Acute kidney injury, Hypertension, Hyperlipidemia, Plan: Admit to Tele, Transfuse 2 units PRBC, Manage/Monitor H&H closely, Stool for occult blood, GI consult, Consider cardiology consult, EKG, Anemia panel, Repeat CBC after 2 units PRBC transfused, Home medications reconciled, 09/29/2024 pt to be seen by GI for scoping 09/30/2024: EGD done, no active source of bleeding. per GI, continue with stool occult blood test and possible camera capsule if needed Plan discussed with: Patient My Orders Orders - BREANNE MEIER DO Procedure Category Date Status Time * Gi Dvh Benefits Consultant CONS 09/29/24 Transmitted 13:12 Date of Service: Sep 30, 2024 Billing Provider: BREANNE MEIER DO Common Visit Codes: [id number] INP/OBS CARE(HIGH) BREANNE MEIER DO Sep 30, 2024 13:07
[2024-10-01] VITALS (8 sets, daily range): BP systolic 114–151; BP diastolic 51–79; PULSE 63–85; RESP 16–19; TEMP 97.3–98.3; O2SAT 96–99
[2024-10-01 11:03] LABS: Basophils # (auto) 0 10 ^3/uL (0-0.2); Eosinophils # (auto) 0.3 10 ^3/uL (0-0.8); Eosinophils % (auto) 4.4 % (0.0-7.0); Lymphocytes # (auto) 1.6 10 ^3/uL (0.4-5.4); Mean Corpuscular Hgb Conc. 32.2 g/dL (32.0-36.0); Monocytes # (auto) 0.8 10 ^3/uL (0-1.3); Nucleated Red Blood Cells % 0.1 %
[2024-10-01 11:06] LABS: Basophils % (auto) 0.3 % (0.0-2.0); Hematocrit 28.4 % (41.0-53.0); Hemoglobin 9.1 g/dL (13.5-17.5); Lymphocytes % (auto) 25.2 % (10.0-50.0); Mean Corpuscular Hemoglobin 24.7 pg (28.0-32.0); Mean Corpuscular Volume 76.7 fL (80.0-100.0); Neutrophils # (auto) 3.8 10 ^3/uL (1.6-8.6); Neutrophils % (auto) 58.1 % (37.0-80.0); Platelet Count (auto) 342 10^3/uL (140-450); White Blood Cell 6.5 10^3/uL (4.4-10.8)
[2024-10-02] VITALS (10 sets, daily range): BP systolic 118–146; BP diastolic 52–74; PULSE 67–84; RESP 16–18; TEMP 97.5–98.5; O2SAT 96–99
[2024-10-02] MEDS: hydrALAZINE HCL 20 MG/ML VL IV ONE (07:22)
[2024-10-02] MEDS: LOSARTAN POTASSIUM 50 MG TAB PO SCH (10:51)
--- NOTE | 2024-10-02 11:16 | DVHPN2 ---
Reviewed: Care Plan, Labs, Previous Orders, Radiology Changes from previous H/P or p: No Changes General: Per HPI Eyes: No Pain, No Vision change, No Conjunctivae inflammation, No Eyelid inflammation, No Other, No Redness ENT: No Ear pain, No Ear discharge, No Nose pain, No Nose discharge, No Nose congestion, No Mouth pain, No Mouth swelling, No Throat pain, No Throat swelling, No Other Cardiovascular: No Chest Pain, No Palpitations, No Orthopnea, No Paroxysmal Noc. Dyspnea, No Edema, No Lt Headedness, No Other Respiratory: No Cough, No Dry, No Shortness of breath, No SOB with excertion, No Wheezing, No Hemoptysis, No Pleuritic Pain, No Sputum, No Other Gastrointestinal: No Nausea, No Vomiting, No Abdominal Pain, No Diarrhea, No Constipation, No Melena, No Hematochezia, No Other Genitourinary: No Dysuria, No Frequency, No Incontinence, No Hematuria, No Retention, No Other Musculoskeletal: No other, No neck pain, No shoulder pain, No arm pain, No back pain, No hand pain, No leg pain, No foot pain Skin: No Rash, No Lesions, No Jaundice, No Bruising, No Other Objective Vitals Vital Signs Date Time Temp Pulse Resp B/P (MAP) Pulse Ox O2 Delivery O2 Flow Rate FiO2 10/02/24 10:51 131/56 10/02/24 08:39 97.9 71 16 98 97.9 10/02/24 07:47 Room Air* 0 21 Intake/Output Intake and Output 10/02/24 07:00 Intake Total 1400 ml Balance 1400 ml Intake Oral 1400 ml # Voids 4 General Appearance: Alert, Oriented X3, Cooperative Cardiovascular: Regular rate, Normal S1, Normal S2 Abdomen: Normal bowel sounds, Soft Medications Current Medications Medications Dose Ordered Sig/Manjit Route Start Time Stop Time Status Last Admin Dose Admin Acetaminophen/ Hydrocodone Bitart 1 tab Q4HP PRN PO 09/28/24 12:45 Ondansetron HCl 4 mg Q4HP PRN IV 09/28/24 12:45 Docusate Sodium 100 mg BIDPRN PRN PO 09/28/24 12:45 Acetaminophen 650 mg Q6HP PRN PO 09/28/24 12:45 Nitroglycerin 0.4 mg Q5MINP PRN SL 09/28/24 12:45 Morphine Sulfate 2 mg Q30M PRN IV 09/28/24 12:45 Amlodipine Besylate 10 mg DAILY PO 09/29/24 10:00 10/02/24 10:50 10 MG Losartan Potassium 50 mg DAILY PO 09/29/24 10:00 10/02/24 10:51 50 MG Spironolactone 25 mg DAILY PO 09/29/24 10:00 10/02/24 10:51 25 MG Atorvastatin Calcium 20 mg HS PO 09/28/24 22:00 10/01/24 21:50 20 MG Laboratory Results Laboratory Tests 09/29/24 06:33 10/01/24 10:40 Urinalysis Test 09/28/24 11:54 Urine Color Colorless (Yellow) Urine Clarity Clear (Clear) Urine pH 6.0 (5.0-9.0) Urine Specific [place] 1.006 (1.001-1.035) Urine Protein Negative (Negative) Urine Ketones Negative (Negative) Urine Blood Negative /uL (Negative) Urine Nitrite Negative (Negative) Urine Bilirubin Negative (Negative) Urine Urobilinogen Normal mg/dL (Negative) Urine Leukocyte Esterase Negative /uL (Negative) Urine RBC 1 /hpf (0 - 3) Urine Microscopic WBC 1 /HPF (0-3) Urine Squamous Epithelial Cells Few /hpf (<5) Urine Bacteria Few /hpf (None Seen) H Urine Glucose Normal mg/dL (Normal) Assessment/Plan Assessment/Plan Leonardo Pacheco is an 83-year-old male with past medical history of hypertension, and hyperlipidemia, who came to the hospital due to abnormal labs. Patient states that he has not been feeling well for a few months. He went to his primary care provider who ordered labs. The labs came back showing severe anemia, so the office called him and told him to go to the hospital to be evaluated. Labs here showed severe anemia with Hbg of 5.7 & Hct of 18.4. Patient denies any nausea, vomiting, diarrhea, blood in stool, or blood in urine. He states he has just been becoming increasingly fatigued over the last 2-3 months. Patient was also found to have elevated troponin and acute kidney injury, likely due to low Hgb and demand ischemia. Symptomatic anemia, acute Elevated troponin, Acute kidney injury, Hypertension, Hyperlipidemia, Plan: Admit to Tele, Transfuse 2 units PRBC, Manage/Monitor H&H closely, Stool for occult blood, GI consult, Consider cardiology consult, EKG, Anemia panel, Repeat CBC after 2 units PRBC transfused, Home medications reconciled, 09/29/2024 pt to be seen by GI for scoping 09/30/2024: EGD done, no active source of bleeding. per GI, continue with stool occult blood test and possible camera capsule if needed 10/01/2024: continue with monitoring for H&H, pt states he as some dark stool Plan discussed with: Patient Date of Service: Oct 01, 2024 Billing Provider: BREANNE MEIER DO Common Visit Codes: [id number] INP/OBS CARE(HIGH) BREANNE MEIER DO Oct 02, 2024 11:16
--- NOTE | 2024-10-02 11:17 | DVHPN2 ---
Reviewed: Care Plan, Labs, Previous Orders, Radiology Changes from previous H/P or p: No Changes General: Per HPI Eyes: No Pain, No Vision change, No Conjunctivae inflammation, No Eyelid inflammation, No Other, No Redness ENT: No Ear pain, No Ear discharge, No Nose pain, No Nose discharge, No Nose congestion, No Mouth pain, No Mouth swelling, No Throat pain, No Throat swelling, No Other Cardiovascular: No Chest Pain, No Palpitations, No Orthopnea, No Paroxysmal Noc. Dyspnea, No Edema, No Lt Headedness, No Other Respiratory: No Cough, No Dry, No Shortness of breath, No SOB with excertion, No Wheezing, No Hemoptysis, No Pleuritic Pain, No Sputum, No Other Gastrointestinal: No Nausea, No Vomiting, No Abdominal Pain, No Diarrhea, No Constipation, No Melena, No Hematochezia, No Other Genitourinary: No Dysuria, No Frequency, No Incontinence, No Hematuria, No Retention, No Other Musculoskeletal: No other, No neck pain, No shoulder pain, No arm pain, No back pain, No hand pain, No leg pain, No foot pain Skin: No Rash, No Lesions, No Jaundice, No Bruising, No Other Objective Vitals Vital Signs Date Time Temp Pulse Resp B/P (MAP) Pulse Ox O2 Delivery O2 Flow Rate FiO2 10/02/24 10:51 131/56 10/02/24 08:39 97.9 71 16 98 97.9 10/02/24 07:47 Room Air* 0 21 Intake/Output Intake and Output 10/02/24 07:00 Intake Total 1400 ml Balance 1400 ml Intake Oral 1400 ml # Voids 4 General Appearance: Alert, Oriented X3, Cooperative Cardiovascular: Regular rate, Normal S1, Normal S2 Abdomen: Normal bowel sounds, Soft Medications Current Medications Medications Dose Ordered Sig/Manjit Route Start Time Stop Time Status Last Admin Dose Admin Acetaminophen/ Hydrocodone Bitart 1 tab Q4HP PRN PO 09/28/24 12:45 Ondansetron HCl 4 mg Q4HP PRN IV 09/28/24 12:45 Docusate Sodium 100 mg BIDPRN PRN PO 09/28/24 12:45 Acetaminophen 650 mg Q6HP PRN PO 09/28/24 12:45 Nitroglycerin 0.4 mg Q5MINP PRN SL 09/28/24 12:45 Morphine Sulfate 2 mg Q30M PRN IV 09/28/24 12:45 Amlodipine Besylate 10 mg DAILY PO 09/29/24 10:00 10/02/24 10:50 10 MG Losartan Potassium 50 mg DAILY PO 09/29/24 10:00 10/02/24 10:51 50 MG Spironolactone 25 mg DAILY PO 09/29/24 10:00 10/02/24 10:51 25 MG Atorvastatin Calcium 20 mg HS PO 09/28/24 22:00 10/01/24 21:50 20 MG Laboratory Results Laboratory Tests 09/29/24 06:33 10/01/24 10:40 Urinalysis Test 09/28/24 11:54 Urine Color Colorless (Yellow) Urine Clarity Clear (Clear) Urine pH 6.0 (5.0-9.0) Urine Specific [place] 1.006 (1.001-1.035) Urine Protein Negative (Negative) Urine Ketones Negative (Negative) Urine Blood Negative /uL (Negative) Urine Nitrite Negative (Negative) Urine Bilirubin Negative (Negative) Urine Urobilinogen Normal mg/dL (Negative) Urine Leukocyte Esterase Negative /uL (Negative) Urine RBC 1 /hpf (0 - 3) Urine Microscopic WBC 1 /HPF (0-3) Urine Squamous Epithelial Cells Few /hpf (<5) Urine Bacteria Few /hpf (None Seen) H Urine Glucose Normal mg/dL (Normal) Labs and/or images reviewed: Labs reviewed by me, Image(s) reviewed by me Assessment/Plan Assessment/Plan Leonardo Pacheco is an 83-year-old male with past medical history of hypertension, and hyperlipidemia, who came to the hospital due to abnormal labs. Patient states that he has not been feeling well for a few months. He went to his primary care provider who ordered labs. The labs came back showing severe anemia, so the office called him and told him to go to the hospital to be evaluated. Labs here showed severe anemia with Hbg of 5.7 & Hct of 18.4. Patient denies any nausea, vomiting, diarrhea, blood in stool, or blood in urine. He states he has just been becoming increasingly fatigued over the last 2-3 months. Patient was also found to have elevated troponin and acute kidney injury, likely due to low Hgb and demand ischemia. Symptomatic anemia, acute Elevated troponin, Acute kidney injury, Hypertension, Hyperlipidemia, Plan: Admit to Tele, Transfuse 2 units PRBC, Manage/Monitor H&H closely, Stool for occult blood, GI consult, Consider cardiology consult, EKG, Anemia panel, Repeat CBC after 2 units PRBC transfused, Home medications reconciled, 09/29/2024 pt to be seen by GI for scoping 09/30/2024: EGD done, no active source of bleeding. per GI, continue with stool occult blood test and possible camera capsule if needed 10/01/2024: continue with monitoring for H&H, pt states he as some dark stool 10/02/2024: no further plan per GI. if H&H is stable, possible d/c in 24 hours Plan discussed with: Patient Date of Service: Oct 02, 2024 Billing Provider: BREANNE MEIER DO Common Visit Codes: [id number] INP/OBS CARE(HIGH) BREANNE MEIER DO Oct 02, 2024 11:17
[2024-10-02 11:56] LABS: Basophils # (auto) 0 10 ^3/uL (0-0.2); Eosinophils # (auto) 0.2 10 ^3/uL (0-0.8); Eosinophils % (auto) 2.7 % (0.0-7.0); Monocytes # (auto) 0.9 10 ^3/uL (0-1.3); Neutrophils # (auto) 4.6 10 ^3/uL (1.6-8.6)
[2024-10-02 11:59] LABS: Basophils % (auto) 0.4 % (0.0-2.0); Lymphocytes # (auto) 0.9 10 ^3/uL (0.4-5.4); Lymphocytes % (auto) 13.5 % (10.0-50.0); Mean Corpuscular Hemoglobin 24.6 pg (28.0-32.0); Mean Corpuscular Hgb Conc. 32.2 g/dL (32.0-36.0); Mean Corpuscular Volume 76.4 fL (80.0-100.0); Monocytes % (auto) 13.7 % (0.0-12.0); Neutrophils % (auto) 69.7 % (37.0-80.0); Nucleated Red Blood Cells % 0.1 %; Platelet Count (auto) 333 10^3/uL (140-450); Red Blood Cells 3.66 10^6/uL (4.5-5.90); White Blood Cell 6.6 10^3/uL (4.4-10.8)
[2024-10-03] VITALS (7 sets, daily range): BP systolic 112–131; BP diastolic 54–61; PULSE 64–71; RESP 17–18; TEMP 97.4–98.4; O2SAT 97–100
--- NOTE | 2024-10-03 11:51 | DVHDS2 ---
Discharge Summary Date of Admission Sep 28, 2024 at 12:34 Date of Discharge: Oct 03, 2024 Labs/Diagnostic Data: Laboratory Results Test 10/02/24 11:41 09/30/24 06:00 09/29/24 06:33 09/28/24 11:54 White Blood Count 6.6 10^3/uL (4.4-10.8) Red Blood Count 3.66 10^6/uL (4.5-5.90) Hemoglobin 9.0 g/dL (13.5-17.5) Hematocrit 28.0 % (41.0-53.0) Mean Corpuscular Volume 76.4 fL (80.0-100.0) Mean Corpuscular Hemoglobin 24.6 pg (28.0-32.0) Mean Corpuscular Hemoglobin Concent 32.2 g/dL (32.0-36.0) Red Cell Distribution Width 19.0 % (11.8-14.3) Platelet Count 333 10^3/uL (140-450) Mean Platelet Volume 6.9 fL (6.9-10.8) Neutrophils (%) (Auto) 69.7 % (37.0-80.0) Lymphocytes (%) (Auto) 13.5 % (10.0-50.0) Monocytes (%) (Auto) 13.7 % (0.0-12.0) Eosinophils (%) (Auto) 2.7 % (0.0-7.0) Basophils (%) (Auto) 0.4 % (0.0-2.0) Neutrophils # (Auto) 4.6 10 ^3/uL (1.6-8.6) Lymphocytes # (Auto) 0.9 10 ^3/uL (0.4-5.4) Monocytes # (Auto) 0.9 10 ^3/uL (0-1.3) Eosinophils # (Auto) 0.2 10 ^3/uL (0-0.8) Basophils # (Auto) 0 10 ^3/uL (0-0.2) Nucleated Red Blood Cells 0.1 % Stool Occult Blood Positive (Negative) Stool Occult Blood Sample #3 (Negative) Sodium Level 139 mmol/L (136-145) Potassium Level 5.0 mmol/L (3.5-5.1) Chloride Level 109 mmol/L (98-107) Carbon Dioxide Level 21 mmol/L (20-31) Anion Gap 9 (5-15) Blood Urea Nitrogen 28 mg/dL (9-23) Creatinine 1.77 mg/dL (0.700-1.30) Glomerular Filtration Rate Calc 38 mL/min (>90) BUN/Creatinine Ratio 15.8 (10.0-20.0) Serum Glucose 82 mg/dL (74-106) Calcium Level 9.6 mg/dL (8.7-10.4) Iron Level 36 ug/dL (65-175) Total Iron Binding Capacity 343 ug/dL (250-425) Percent Iron Saturation 10.5 % (20-55) Total Bilirubin 0.4 mg/dL (0.2-1.0) Aspartate Amino Transferase (AST) 13 U/L (13-40) Alanine Aminotransferase (ALT) 11 U/L (7-40) Alkaline Phosphatase 57 U/L (46-116) Total Protein 7.3 g/dL (5.7-8.2) Albumin 4.4 g/dL (3.2-4.8) Vitamin B12 Level 325 pg/mL (211-911) Folic Acid 10.73 ng/mL (>5.38) Urine Color Colorless (Yellow) Urine Clarity Clear (Clear) Urine pH 6.0 (5.0-9.0) Urine Specific Adams 1.006 (1.001-1.035) Urine Protein Negative (Negative) Urine Ketones Negative (Negative) Urine Blood Negative /uL (Negative) Urine Nitrite Negative (Negative) Urine Bilirubin Negative (Negative) Urine Urobilinogen Normal mg/dL (Negative) Urine Leukocyte Esterase Negative /uL (Negative) Urine RBC 1 /hpf (0 - 3) Urine Microscopic WBC 1 /HPF (0-3) Urine Squamous Epithelial Cells Few /hpf (<5) Urine Bacteria Few /hpf (None Seen) Urine Glucose Normal mg/dL (Normal) Test 09/28/24 11:30 09/28/24 08:34 Troponin I High Sensitivity 125 ng/L (</=54) Prothrombin Time 10.3 sec (9.3-11.8) Prothrombin Time INR 0.97 (0.9-1.15) Activated Partial Thromboplast Time 22.9 SEC (24.5-34.5) Other Laboratory Tests 10/02/24 11:41 09/29/24 06:33 Brief Hx & Hospital Course: Leonardo Pacheco is an 83-year-old male with past medical history of hypertension, and hyperlipidemia, who came to the hospital due to abnormal labs. Patient states that he has not been feeling well for a few months. He went to his primary care provider who ordered labs. The labs came back showing severe anemia, so the office called him and told him to go to the hospital to be evaluated. Labs here showed severe anemia with Hbg of 5.7 & Hct of 18.4. Patient denies any nausea, vomiting, diarrhea, blood in stool, or blood in urine. He states he has just been becoming increasingly fatigued over the last 2-3 months. Patient was also found to have elevated troponin and acute kidney injury, likely due to low Hgb and demand ischemia. Symptomatic anemia, acute Elevated troponin, Acute kidney injury, Hypertension, Hyperlipidemia, Plan: Admit to Tele, Transfuse 2 units PRBC, Manage/Monitor H&H closely, Stool for occult blood, GI consult, Consider cardiology consult, EKG, Anemia panel, Repeat CBC after 2 units PRBC transfused, Home medications reconciled, 09/29/2024 pt to be seen by GI for scoping 09/30/2024: EGD done, no active source of bleeding. per GI, continue with stool occult blood test and possible camera capsule if needed 10/01/2024: continue with monitoring for H&H, pt states he as some dark stool 10/02/2024: close monitoring for H&H, no further intervention by GI possible d/c in 24 hours 10/03/2024: discharged to home with self care Condition at Discharge: Fair Final Diagnosis/Problems List see above Discharge Disposition: Home Discharge Instruct/Medications Diet: Cardiac 2g Na,low cholest Activity: No Restrictions, As Tolerated Discharge Statement: "Patient was advised to return to the ER or call 911 if any headaches, dizziness, shortness of breath, chest pain, abdominal pain, bleeding, fevers, or worsening of medical condition. Patient was counseled about treatment plan, medications, possible side effects, patientverbalized understanding. All questions were answered to the best of my ability. This discharge took greater then 30 minutes in planning, reviewing documentation, counseling the patient, and discussing with other team members." ASSESSMENT ASSESSMENT Assessment Date of Service: Oct 03, 2024 Billing Provider: BREANNE MEEIR DO Common Visit Codes: 39818-QBE/OBS DISCH DAY >30min BREANNE MEIER DO Oct 03, 2024 11:51
== END 2024-10-03 15:21 | disposition home or self-care (01) | DRG 812 ==
LOC: ER 07:33 → OVERFLOW 12:34 → TELE-CENTR 22:11
PROVIDERS: ADMIT Internal Medicine; ATTEND Internal Medicine
PROC: 30233N1 Transfusion of Nonautologous Red Blood Cells into Peripheral Vein, Percutaneous Approach (ICD-10-PCS; principal; 2024-09-28)
PROC: 0DB38ZX Excision of Lower Esophagus, Via Natural or Artificial Opening Endoscopic, Diagnostic (ICD-10-PCS; 2024-09-30)
PROC: 0DB68ZX Excision of Stomach, Via Natural or Artificial Opening Endoscopic, Diagnostic (ICD-10-PCS; 2024-09-30)
DX: D50.9 Iron deficiency anemia, unspecified (principal); N17.9 Acute kidney failure, unspecified; I24.89 Other forms of acute ischemic heart disease; K29.70 Gastritis, unspecified, without bleeding; K20.90 Esophagitis, unspecified without bleeding; I10 Essential (primary) hypertension; E78.5 Hyperlipidemia, unspecified; K44.9 Diaphragmatic hernia without obstruction or gangrene; Z79.2 Long term (current) use of antibiotics; Z79.82 Long term (current) use of aspirin; Z83.3 Family history of diabetes mellitus
CPT/HCPCS: 36415; 71045; 80048; 80053; 81001; 82270; 82607; 82746; 83540; 83550; 84484; 85025; 85610; 85730; 86850; 86900; 86901; 86920; 93005; 97163; 99291; G0378; J2250

== ENCOUNTER 2024-10-05 16:45 | Inpatient (IN) | payer OTHER ==
[~2024-10-05] VITALS: Ht 175.3 cm; Wt 89.1 kg
[~2024-10-05 16:45] MED LIST changes: -SODI650T PO
--- NOTE | 2024-10-05 17:27 | ED.PDOC ---
History of Present Illness HPI Comments 83 y/o M, with PMHx of HTN, DM, and HLD presents to the ED for CC of abnormal labs. Patient states, that he had labs drawn today (10/05/24) and was relayed to the ED for a high potassium reading of 5.9. Patient relays, that he was recently discharged from [facility] on Friday (10/03/24) for anemia; patient endorses receiving a blood transfusion. Patient reports, new onset symptoms of weakness, bilateral leg swelling, and shortness of breath starting today (10/05/24). Patient denies melena, hematemesis, nausea, vomiting, or diarrhea. No other symptoms or modifying factors present at this time. Chief Complaint: Abnormal LAB's Time Seen by MD: 17:05 Primary Care Provider: edouard Reviewed Notes: Nurses Notes, Medications, Allergies Allergies: Coded Allergies: NO KNOWN ALLERGIES (Unverified , 08/21/21) Home Meds Reported Medications Amlodipine Besylate (Amlodipine Besylate) 10 Mg Tab, 1 TAB PO DAILY for 90 Days, #90 09/29/24 Spironolactone (Spironolactone) 25 Mg Tab, 1 TAB PO DAILY for 90 Days, #90 09/28/24 Losartan Potassium (Losartan Potassium) 50 Mg Tab, 1 TAB PO DAILY for 90 Days, #90 11/29/19 Simvastatin (Simvastatin) 20 Mg Tab, 1 TAB PO DAILY for 90 Days, #90 11/28/10 Discontinued Reported Medications Amlodipine Besylate (Amlodipine Besylate) 5 Mg Tab, 10 MG PO DAILY, MG 11/29/19 Aspirin (Aspir-Low) 81 Mg Tab, 81 MG PO DAILY for 30 Days, MG 08/01/16 Hctz (Hydrochlorothiazide) 25 Mg Tab, 25 MG PO DAILY, TAB 11/29/19 Discontinued Scripts Acetaminophen (Tylenol) 325 Mg Cap, 325 MG PO Q4HPRN PRN, #30 CAP 0 Refills Take 1-2 caps po q4h prn for pain/fever (Do not exceed 3,000mg of acetaminophen in 24 hours) Prov:LIZETH SONG [employer]AC[employer] DEVELOPER 07/23/23 Acetaminophen (Tylenol 8 Hour Arthritis) 650 Mg Tab, 650 MG PO TID, #30 TAB Prov:JAMARCUS VINSON 05/03/23 Oseltamivir Phosphate (Tamiflu) 75 Mg Cap, 75 MG PO BID for 5 Days, #10 CAP Prov:JAMARCUS VINSON 05/03/23 Azithromycin (Azithromycin) 500 Mg Tab, 1 TAB PO DAILY, #5 TAB Prov:JAMARCUS VINSON 05/03/23 Acetaminophen (Tylenol 8 Hour Arthritis) 650 Mg Tab, 650 MG PO TID, #30 TAB Prov:JAMARCUS VINSON 11/09/21 Information Source: Patient, Significant Other Mode of Arrival: Ambulatory Severity: Moderate Timing: Hours Duration: Since onset Prehospital treatment: None Past Medical History PAST MEDICAL HISTORY: High Lipids, HTN Surgical History: Denies all surgeries Family History Family History: Reviewed,noncontributory to illness, Family hx of HTN Social History Smoker: Non-Smoker Alcohol: Denies ETOH Use Drugs: Denies Drug Use Lives In: Home Constitutional: reports: weakness; denies: chills, diaphoresis, fatigue, fever, malaise, sweats, others EENTM: denies: blurred vision, double vision, ear bleeding, ear discharge, ear drainage, ear pain, ear ringing, eye pain, eye redness, hearing loss, mouth pain, mouth swelling, nasal discharge, nose bleeding, nose congestion, nose pain, photophobia, tearing, throat pain, throat swelling, voice changes, others Respiratory: reports: shortness of breath; denies: cough, hemoptysis, orthopnea, SOB at rest, SOB with excertion, stridor, wheezing, others Cardiovascular: denies: chest pain, dizzy spells, diaphoresis, Dyspnea on exertion, edema, irregular heart beat, left arm pain, lightheadedness, palpitations, PND, syncope, others Gastrointestinal: denies: abdomen distended, abdominal pain, blood streaked bowels, constipated, diarrhea, dysphagia, difficulty swallowing, hematemesis, melena, nausea, poor appetite, poor fluid intake, rectal bleeding, rectal pain, vomiting, others Genitourinary: denies: burning, dysuria, flank pain, frequency, hematuria, incontinence, penile discharge, penile sore, pain, testicle pain, testicle swelling, urgency, others Neurological: denies: dizziness, fainting, headache, left sided numbness, left sided weakness, numbness, paresthesia, pre-existing deficit, right sided numbness, right sided weakness, seizure, speech problems, tingling, tremors, weakness, others Musculoskeletal: denies: back pain, gout, joint pain, joint swelling, muscle pain, muscle stiffness, neck pain, others Integumetry: denies: bruises, change in color, change in hair/nails, dryness, laceration, lesions, lumps, rash, wounds, others Allergic/Immunocompromised: denies: Difficulty Healing, Frequent Infections, Hives, Itching, others Hematologic/Lymphatic: denies: anemia, blood clots, easy bleeding, easy bruising, swollen glands, others Endocrine: denies: excessive hunger, excessive sweating, excessive thirst, excessive urination, flushing, intolerance to cold, intolerance to heat, unexplained weight gain, unexplained weight loss, others Psychiatric: denies: anxiety, bipolar disorder, depression, hopeless, panic disorder, schizophrenia, sleepless, suicidal, others All Other Systems: Reviewed and Negative Physical Exam General Appearance: No Apparent Distress HEENT: Normal ENT Inspection, Pharynx Normal, TMs Normal Neck: Full Range of Motion, Non-Tender, Normal, Normal Inspection Respiratory: Chest Non-Tender, Lungs Clear, No Accessory Muscle Use, No Respiratory Distress, Normal Breath Sounds Cardiovascular: No Edema, No JVD, No Murmur, No Gallop, Normal Peripheral Pulses, Regular Rate/Rhythm Breast Exam: Deferred Gastrointestinal: No Organomegaly, Non Tender, No Pulsatile Mass, Normal Bowel Sounds, Soft Genitalia: Deferred Pelvic: Deferred Rectal: Deferred Extremities: No calf tenderness, Normal capillary refill, Normal inspection, Normal range of motion, Non-tender, No pedal edema Musculoskeletal : Apperance: Normal Neurologic: Alert, pantograph i engraver II-XII nml as Tested, Motor Weakness, Normal Affect, Normal Mood, No Sensory Deficits Cerebellar Function: Normal Reflexes: Normal Skin: Dry, Normal Color, Warm Lymphatic: No Adenopathy Was a procedure done? Was a procedure done?: No Differential Dx Considerations may include: hyperkalemia X-Ray, Labs, Meds, VS Vital Signs Date Time Temp Pulse Resp B/P (MAP) Pulse Ox O2 Delivery O2 Flow Rate FiO2 10/05/24 16:59 98.2 87 20 122/74 (90) 97 98.2 10/05/24 16:57 83 Lab Test 10/05/24 17:18 Range/Units White Blood Count 7.8 4.4-10.8 10^3/uL Red Blood Count 3.67 L 4.5-5.90 10^6/uL Hemoglobin 8.8 L 13.5-17.5 g/dL Hematocrit 28.0 L 41.0-53.0 % Mean Corpuscular Volume 76.3 L 80.0-100.0 fL Mean Corpuscular Hemoglobin 24.1 L 28.0-32.0 pg Mean Corpuscular Hemoglobin Concent 31.5 L 32.0-36.0 g/dL Red Cell Distribution Width 19.4 H 11.8-14.3 % Platelet Count 358 140-450 10^3/uL Mean Platelet Volume 7.1 6.9-10.8 fL Neutrophils (%) (Auto) 68.4 37.0-80.0 % Lymphocytes (%) (Auto) 19.6 10.0-50.0 % Monocytes (%) (Auto) 9.7 0.0-12.0 % Eosinophils (%) (Auto) 2.0 0.0-7.0 % Basophils (%) (Auto) 0.3 0.0-2.0 % Neutrophils # (Auto) 5.4 1.6-8.6 10 ^3/uL Lymphocytes # (Auto) 1.5 0.4-5.4 10 ^3/uL Monocytes # (Auto) 0.8 0-1.3 10 ^3/uL Eosinophils # (Auto) 0.2 0-0.8 10 ^3/uL Basophils # (Auto) 0 0-0.2 10 ^3/uL Nucleated Red Blood Cells 0.0 % Sodium Level 135 L 136-145 mmol/L Potassium Level 6.1 *H 3.5-5.1 mmol/L Chloride Level 108 H 98-107 mmol/L Carbon Dioxide Level 18 L 20-31 mmol/L Anion Gap 9 5-15 Blood Urea Nitrogen 56 H 9-23 mg/dL Creatinine 3.17 H 0.700-1.30 mg/dL Glomerular Filtration Rate Calc 19 >90 mL/min BUN/Creatinine Ratio 17.7 10.0-20.0 Serum Glucose 104 74-106 mg/dL Calcium Level 9.3 8.7-10.4 mg/dL IV Hep-Lock was established The CBC shows anemia with a hemoglobin of 8.8 hematocrit of 28 The platelets are 358 The rest of the CBC is within normal limits The chemistry panel shows a potassium of 6.1 indicating significant hyperkalemia The CO2 level is 18 The BUN and creatinine are elevated at 56 and 3.17 At this time, the patient will be admitted to the hospitalist A nephrology consult will be obtained The patient was given dextrose, insulin, sodium bicarbonate and calcium to address the hyperkalemia The patient was being admitted at this time. Time of 1ST Reevaluation: 17:35 Reevaluation 1ST: Unchanged Time of 2ND Reevaluation: 19:57 Reevaluation 2ND: Unchanged Patient Education/Counseling: Diagnosis, Treatment, Prognosis Family Education/Counseling: Diagnosis, Treatment, Prognosis Departure 1 Departure Time of Disposition: 19:57 Impression: Primary Impression: Hyperkalemia Additional Impressions: Generalized weakness Symptomatic anemia Disposition: ADMITTED INPATIENT Admit to: Tele Condition: Fair Critical Care Note Critical Care Time?: No Stability Stability form required: Yes Unstable for transfer: Telemetry monitoring (Telemetry monitoring required), ED Physician Assesment (Clinical assesment) Heart Score Heart Score: Heart Score Response (Comments) Value History N/A 0 EKG N/A 0 Age N/A 0 Risk Factors N/A 0 Troponin N/A 0 Total 0 I personally scribed for ANISA AGEE MD ([email or web address]) on 10/05/24 at 17:27. Electronically submitted by Gina Espinal ([email or web address]). I personally scribed for ANISA AGEE MD ([email or web address]) on 10/05/24 at 17:44. Electronically submitted by Gina Espinal [email or web address]). ANISA AGEE MD Oct 05, 2024 17:27
[2024-10-05 17:35] LABS: Anion Gap 9 (5-15); Calcium 9.3 mg/dL (8.7-10.4)
[2024-10-05 17:40] LABS: BUN/Creatinine Ratio 17.7 (10.0-20.0); Glucose 104 mg/dL (74-106)
[2024-10-05 17:41] LABS: Blood Urea Nitrogen 56 mg/dL (9-23); Carbon Dioxide 18 mmol/L (20-31); Chloride 108 mmol/L (98-107); Sodium 135 mmol/L (136-145)
[2024-10-05 17:43] LABS: Potassium 6.1 mmol/L (3.5-5.1)
[2024-10-05 17:49] LABS: Basophils # (auto) 0 10 ^3/uL (0-0.2); Hemoglobin 8.8 g/dL (13.5-17.5); Lymphocytes # (auto) 1.5 10 ^3/uL (0.4-5.4); Mean Corpuscular Hemoglobin 24.1 pg (28.0-32.0); Monocytes # (auto) 0.8 10 ^3/uL (0-1.3)
[2024-10-05 17:50] LABS: Basophils % (auto) 0.3 % (0.0-2.0); Eosinophils # (auto) 0.2 10 ^3/uL (0-0.8); Lymphocytes % (auto) 19.6 % (10.0-50.0); Mean Corpuscular Hgb Conc. 31.5 g/dL (32.0-36.0); Mean Corpuscular Volume 76.3 fL (80.0-100.0); Monocytes % (auto) 9.7 % (0.0-12.0); Neutrophils # (auto) 5.4 10 ^3/uL (1.6-8.6); Neutrophils % (auto) 68.4 % (37.0-80.0); Platelet Count (auto) 358 10^3/uL (140-450); Red Blood Cells 3.67 10^6/uL (4.5-5.90); Red Cell Distribution Width 19.4 % (11.8-14.3); White Blood Cell 7.8 10^3/uL (4.4-10.8)
--- NOTE | 2024-10-05 19:06 | ECG ---
[facility] Test Date: 2024-10-05 Test Time: 16:57:58 Pat Name: MARY HEREDIA Department: ER Room: 0275T Gender: M Data Collection Associate: SUZIE : 1940 Requested By: ANISA AGEE Order Number: [id number] Reading MD: Yoel Meehan Measurements Intervals [place] Rate: 83 P: 44 TN: 181 QRS: -17 QRSD: 81 T: 16 QT: 366 QTc: 430 Interpretive Statements Sinus rhythm Borderline left axis deviation Electronically Signed On 10-06-2024 13:18:26 PDT by Yoel Meehan Please click the below link to view image of tracing.
[2024-10-05 20:00] VITALS: PULSE 82; RESP 16; O2SAT 96
[2024-10-05] MEDS ORDERED: NITROGLYCERIN 0.4 MG SL TAB SL PRN (21:15)
[2024-10-05] MEDS ORDERED: ONDANSETRON HCL 4 MG/2 ML VIAL IV PRN (21:15)
--- NOTE | 2024-10-05 21:17 | DVHHP2 ---
History of Present Illness Reason for Visit: abnormal labs History of Present Illness 83-year-old male with a past medical history of hypertension and hyperlipidemia, who presents for evaluation of hyperkalemia after being referred by his primary care physician. The patient was informed that his outpatient potassium was 5.9 and advised to seek emergency care. On arrival, repeat labs confirmed worsening hyperkalemia with potassium of 6.1. The patient denies chest pain, palpitations, shortness of breath, weakness, or any gastrointestinal symptoms. He has no known history of chronic kidney disease and is not on dialysis. He reports adherence to his medications but is unsure if any recent changes were made. In the ED, hyperkalemia management was initiated, including IV calcium, insulin with dextrose, and albuterol nebulizers. Labs also revealed acute kidney injury with BUN 56 and creatinine 3.17, significantly elevated without known baseline. Sodium and chloride were within normal limits. EKG findings were not provided but will be reviewed for any signs of electrolyte-related changes. Given persistent hyperkalemia and acute kidney injury, the patient will be admitted for further monitoring and management. Renal consultation (Dr. Siddiqui group) has been requested for evaluation of possible acute or chronic kidney disease and guidance on further treatment. Past Medical History see hpi above Past Surgical History see hpi above Family History Reviewed, non-contributory to the management of this case. Past Social History The patient lives at home, denies smoking, alcohol or illicit drugs abuse. Review of Systems Constitutional: No: Fever, Chills, Sweats, Weakness, Malaise, Other Eyes: No: Pain, Vision change, Conjunctivae inflammation, Eyelid inflammation, Other, Redness ENT: No: Ear pain, Ear discharge, Nose pain, Nose discharge, Nose congestion, Mouth pain, Mouth swelling, Throat pain, Throat swelling, Other Respiratory: No: Cough, Dry, Shortness of breath, SOB with excertion, Wheezing, Hemoptysis, Pleuritic Pain, Sputum, Wheezing, Other Cardiovascular: No: Chest Pain, Palpitations, Orthopnea, Paroxysmal Noc. Dyspnea, Edema, Lt Headedness, Other Gastrointestinal: No: Nausea, Vomiting, Abdominal Pain, Diarrhea, Constipation, Melena, Hematochezia, Other Genitourinary: No Dysuria, No Frequency, No Incontinence, No Hematuria, No Retention, No Other Musculoskeletal: No: other, neck pain, shoulder pain, arm pain, back pain, hand pain, leg pain, foot pain Skin: No: Rash, Lesions, Jaundice, Bruising, Other Neurological: No: Weakness, Numbness, Incoordination, Change in speech, Confusion, Seizures, Other Allergies: Coded Allergies: NO KNOWN ALLERGIES (Unverified , 08/21/21) Exam Vital Signs Vital Signs Date Time Temp Pulse Resp B/P (MAP) Pulse Ox O2 Delivery O2 Flow Rate FiO2 10/05/24 16:59 98.2 87 20 122/74 (90) 97 98.2 General Appearance: Alert, Oriented X3, Cooperative, No acute distress HEENT: Atraumatic, PERRLA, EOMI, Mucous membr. moist/pink Respiratory: Clear to auscultation, Normal air movement Cardiovascular: Regular rate, Normal S1, Normal S2, No murmurs Abdominal: Normal bowel sounds, Soft, No tenderness, No hepatospenomegaly, No masses Extremities: No clubbing, No cyanosis, No edema, Normal pulses, No tenderness/swelling Skin: No rashes, No breakdown, No significant lesion Neuro: Normal gait, Normal speech, Strength at 5/5 X4 ext, Normal tone, Sensation intact, Cranial nerves 3-12 NL Psych/Mental Status: Mental status NL, Mood NL Labs/Xrays I reviewed labs, imaging CT scan abdomen pelvis, EKG and all diagnostic studies on this patient from ED records and the medical chart Labs Test 10/05/24 17:18 Range/Units White Blood Count 7.8 4.4-10.8 10^3/uL Red Blood Count 3.67 L 4.5-5.90 10^6/uL Hemoglobin 8.8 L 13.5-17.5 g/dL Hematocrit 28.0 L 41.0-53.0 % Mean Corpuscular Volume 76.3 L 80.0-100.0 fL Mean Corpuscular Hemoglobin 24.1 L 28.0-32.0 pg Mean Corpuscular Hemoglobin Concent 31.5 L 32.0-36.0 g/dL Red Cell Distribution Width 19.4 H 11.8-14.3 % Platelet Count 358 140-450 10^3/uL Mean Platelet Volume 7.1 6.9-10.8 fL Neutrophils (%) (Auto) 68.4 37.0-80.0 % Lymphocytes (%) (Auto) 19.6 10.0-50.0 % Monocytes (%) (Auto) 9.7 0.0-12.0 % Eosinophils (%) (Auto) 2.0 0.0-7.0 % Basophils (%) (Auto) 0.3 0.0-2.0 % Neutrophils # (Auto) 5.4 1.6-8.6 10 ^3/uL Lymphocytes # (Auto) 1.5 0.4-5.4 10 ^3/uL Monocytes # (Auto) 0.8 0-1.3 10 ^3/uL Eosinophils # (Auto) 0.2 0-0.8 10 ^3/uL Basophils # (Auto) 0 0-0.2 10 ^3/uL Nucleated Red Blood Cells 0.0 % Sodium Level 135 L 136-145 mmol/L Potassium Level 6.1 *H 3.5-5.1 mmol/L Chloride Level 108 H 98-107 mmol/L Carbon Dioxide Level 18 L 20-31 mmol/L Anion Gap 9 5-15 Blood Urea Nitrogen 56 H 9-23 mg/dL Creatinine 3.17 H 0.700-1.30 mg/dL Glomerular Filtration Rate Calc 19 >90 mL/min BUN/Creatinine Ratio 17.7 10.0-20.0 Serum Glucose 104 74-106 mg/dL Calcium Level 9.3 8.7-10.4 mg/dL Assessment/Plan Assessment/Plan 83-year-old male with hypertension and hyperlipidemia presenting with hyperkalemia and acute kidney injury. acute Hyperkalemia acute, symptomatic risk Plan: Continue hyperkalemia protocol as needed Monitor potassium q6h Review EKG for peaked T-waves or arrhythmias Renal consult for further management Consider dialysis if refractory hold cozaar and hctz for now Acute Kidney Injury etiology unclear, possible pre-renal vs. intrinsic Plan: Monitor renal function daily Assess volume status Hold nephrotoxic medications Renal ultrasound to evaluate for obstruction ordered nunn consult fu recs ordered urine sodium and crea to check fena chronic problems Hypertension known Hyperlipidemia chronic FEN/ppx Renal diet VTE: scd since pt is ambulatory GI: no hx of gerds or gi bleed DISPOSITION Admit to medicine for management of hyperkalemia and acute kidney injury. Renal consult placed. Monitor electrolytes, renal function, and cardiac status closely. Plan discussed with: Patient, Spouse Date of Service: Oct 05, 2024 Billing Provider: ZULEMA JACOBO DNP Common Visit Codes: 57100-WSQMVOS INP/OBS CARE (HIGH) ZULEMA JACOBO DNP Oct 05, 2024 21:17
[2024-10-05] MEDS: CALCIUM GLUC 1,000mg/50ml-NS 50 ML IV ONE (21:21)
[2024-10-05] MEDS: SODIUM BICARB 8.4% 50Meq/50ml SYR Vial IV ONE (21:22)
[2024-10-05] MEDS: DEXTROSE (50%) 50ML SYRG IV ONE (21:22)
[2024-10-05] MEDS: InsuLIN REG 1unit/0.01ml Soln (100units/ml) IV ONE (21:24)
--- NOTE | 2024-10-05 22:28 | DVH ---
INDICATION: eval for acute teresita TECHNIQUE: Multiple real-time sonographic images of the kidneys and bladder were obtained. COMPARISON: None FINDINGS: Right kidney measures 14.5 cm in length and the left 15.5 cm. Multiple cysts noted in both kidneys. T he renal cortical thickness and echogenicity are within normal limits. No hydronephrosis. Urinary bladder demonstrates a prevoid volume of 157 mL and appears unremarkable. Prostate gland is w ithin normal limits in size measuring approximately 18 mL. IMPRESSION: Multiple bilateral renal cysts. No hydronephrosis.
[2024-10-05] MEDS: ATORVASTATIN 20 MG TAB PO SCH (22:32)
[2024-10-06] VITALS (13 sets, daily range): BP systolic 129–150; BP diastolic 51–63; PULSE 66–90; RESP 16–19; TEMP 97.5–98.4; O2SAT 96–100
[2024-10-06 01:25] LABS: Urine Bacteria None Seen /hpf (None Seen)
[2024-10-06 01:39] LABS: Urine Blood Negative /uL (Negative); Urine Clarity Clear (Clear); Urine Color Colorless (Yellow); Urine Protein, UAD Negative (Negative); Urine Specific Gravity 1.016 (1.001-1.035); Urine Squamous Epithelial Cell None Seen /hpf (<5); Urine Urobilinogen Normal (Negative); Urine WBC < 1 /HPF (0-3); Urine pH 5.5 (5.0-9.0)
[2024-10-06 01:53] LABS: Creatinine, Urine 103.62 mg/dL (30.0-125.0)
[2024-10-06] MEDS: LIDOCAINE 2%HCL (LOCAL ANESTH.) INJ 10ml MDV ONE (08:19)
[2024-10-06] MEDS ORDERED: FUROSEMIDE 20 MG/2 ML VIAL IV ONE (08:45)
[2024-10-06] MEDS ORDERED: InsuLIN REG 1unit/0.01ml Soln (100units/ml) IV ONE (08:45)
[2024-10-06] MEDS ORDERED: DEXTROSE (50%) 50ML SYRG IV ONE (08:45)
[2024-10-06] MEDS: ALBUTEROL SULF 2.5 MG/0.5ML(0.5%) NEB SOLN NEB ONE (09:01)
[2024-10-06 09:11] LABS: Alanine Aminotransferase 15 U/L (7-40); Alkaline Phosphatase 68 U/L (46-116); Anion Gap 9 (5-15); BUN/Creatinine Ratio 20.6 (10.0-20.0); Calcium 9.7 mg/dL (8.7-10.4); Chloride 107 mmol/L (98-107); Potassium 4.7 mmol/L (3.5-5.1)
[2024-10-06 09:12] LABS: Aspartate Aminotransferase 15 U/L (13-40); Bilirubin, Total 0.3 mg/dL (0.2-1.0); Blood Urea Nitrogen 47 mg/dL (9-23); Carbon Dioxide 19 mmol/L (20-31); Glucose 170 mg/dL (74-106); Sodium 135 mmol/L (136-145); Total Protein 8.3 g/dL (5.7-8.2)
[2024-10-06] MEDS: amLODIPine BESYLATE 5 MG TAB PO SCH ×2 (09:22→09:55)
[2024-10-06] MEDS: SODIUM ZIRCONIUM CYCL 10 GM PAK PO ONE (09:51)
[2024-10-06 10:25] LABS: Basophils # (auto) 0 10 ^3/uL (0-0.2); Basophils % (auto) 0.2 % (0.0-2.0); Eosinophils # (auto) 0.2 10 ^3/uL (0-0.8); Eosinophils % (auto) 2.1 % (0.0-7.0); Hematocrit 28.2 % (41.0-53.0); Hemoglobin 8.9 g/dL (13.5-17.5); Lymphocytes # (auto) 3.3 10 ^3/uL (0.4-5.4); Lymphocytes % (auto) 34.9 % (10.0-50.0); Mean Corpuscular Hemoglobin 24.4 pg (28.0-32.0); Mean Corpuscular Hgb Conc. 31.7 g/dL (32.0-36.0); Monocytes % (auto) 10.9 % (0.0-12.0); Neutrophils # (auto) 4.9 10 ^3/uL (1.6-8.6); Neutrophils % (auto) 51.9 % (37.0-80.0); Nucleated Red Blood Cells % 0.1 %; Platelet Count (auto) 331 10^3/uL (140-450); Red Blood Cells 3.67 10^6/uL (4.5-5.90); Red Cell Distribution Width 19.4 % (11.8-14.3); White Blood Cell 9.5 10^3/uL (4.4-10.8)
--- NOTE | 2024-10-06 12:08 | DVH ---
EXAM: XY CHEST PORTABLE Indication: chest pain Technique: Single frontal view of the chest was obtained Comparison: XY CHEST PORTABLE on DOS: 09/28/24, XY CHEST PORTABLE on DOS: 05/24/24, CHEST PORTABLE on D OS: 05/09/22, CXRP on DOS: 05/09/22 FINDINGS: Lines and Tubes: None Lungs: No focal consolidation. Pleura: No effusion. No pneumothorax. Cardiomediastinal contours: Unremarkable Bones: No acute osseous abnormality. IMPRESSION: No acute cardiopulmonary disease.
[2024-10-06] MEDS ORDERED: SODIUM ZIRCONIUM CYCL 10 GM PAK PO SCH (14:00)
--- NOTE | 2024-10-06 16:15 | DVHSR ---
APPROVED REPORT EXAM: Two-dimensional and M-mode echocardiogram with Doppler and color Doppler. Blood Pressure: 131/63 mmHg INDICATION Dyspnea rule out chf RISK FACTORS Obesity: Height: 5'9, Weight: 196 DIMENSIONS LVDd5.0 (3.8-5.7cm)LA (2D)3.4 (1.9-4.0cm)Aortic Root3.4 (2.0-3.7cm) LVDs3.2 (2.5-4.0cm)LA (MM) (1.9-4.0cm)Aortic Cusp Exc1.7 (1.5-2.0cm) EF (%) 60.0 (55-70%)Rt. Atrium2.9 (1.9-4.0cm)Asc. Aorta3.8 cm IVSd0.9 (0.7-1.1cm)RV (D) (1.8-2.4cm) PWd0.8 (0.7-1.1cm) Mitral Valve MitralMitral Stenosis E wave0.71m/sMV Mean GR.mmHg A wave0.94m/sMV Peak GR.mmHg E/A ratio0.82D MVAcm2 DECEL [id number] 1/2 Timems Aortic Valve Aortic ValveAortic Stenosis V11.50m/Suleiman Mean GR.11mmHg V22.23m/Suleiman Peak GR.19mmHg LVOT Diameter2.1 (1.8-2.4cm)Doppler AVA2.33cm2 Pulmonic Valve V21.43m/s Tricuspid Valve TR Velocity2.42m/s [id number] Other Information Quality : Technically LimitedRhythm : Conclusion LVEF normal at 60-65% Mild LVH RV function normal Mild aortic stenosis Ascites present
--- NOTE | 2024-10-06 16:23 | DVHINCON2 ---
Date of service: Oct 06, 2024 Referring Physician Hospitalist Reason for Consultation Hyperkalemia History of Present Illness 83-year-old male with past medical history of high blood pressure presents to the hospital sent by his primary medical doctor due to elevated potassium level. He reports that outside of high blood pressure he has been told that he may have kidney disease but the severity was never explained to him. He presents to the hospital now with a potassium of greater than 6.0 and a creatinine greater than two. Nephrology consulted for acute management. Patient denies any family history of kidney problems other than his mother on dialysis. Patient has an ultrasound of the kidneys which showed bilateral large kidneys with multiple cysts. His medications are notable on the list for spironolactone as well as losartan. Allergies: Coded Allergies: NO KNOWN ALLERGIES (Unverified , 08/21/21) Home Meds Reported Medications Amlodipine Besylate (Amlodipine Besylate) 10 Mg Tab, 1 TAB PO DAILY for 90 Days, #90 09/29/24 Spironolactone (Spironolactone) 25 Mg Tab, 1 TAB PO DAILY for 90 Days, #90 09/28/24 Losartan Potassium (Losartan Potassium) 50 Mg Tab, 1 TAB PO DAILY for 90 Days, #90 11/29/19 Simvastatin (Simvastatin) 20 Mg Tab, 1 TAB PO DAILY for 90 Days, #90 11/28/10 Discontinued Reported Medications Amlodipine Besylate (Amlodipine Besylate) 5 Mg Tab, 10 MG PO DAILY, MG 11/29/19 Aspirin (Aspir-Low) 81 Mg Tab, 81 MG PO DAILY for 30 Days, MG 08/01/16 Current Medications Current Medications Medications (Trade) Dose Ordered Sig/Manjit Route PRN Reason Start Time Stop Time Status Last Admin Amlodipine Besylate (Norvasc Tablet) 10 mg DAILY PO 10/06/24 10:00 10/06/24 09:39 DC Atorvastatin Calcium (Lipitor) 10 mg HS PO 10/05/24 22:00 10/05/24 22:32 Ondansetron HCl (Zofran) 4 mg Q4HP PRN IV NAUSEA / VOMITING 10/05/24 21:15 Nitroglycerin (Ntrostat Sublingual) 0.4 mg Q5MINP PRN SL FOR CHEST PAIN 10/05/24 21:15 Zirconium Oxide (Lokelma) 10 gm TID PO 10/06/24 14:00 10/06/24 09:39 DC Amlodipine Besylate (Norvasc Tablet) 5 mg DAILY PO 10/06/24 10:00 10/06/24 09:55 Family History: Diabetes mellitus G8 MOTHER G8 FATHER Review of Systems Abnormal laboratory values H&P Exam Vital Signs/I&O Vital Sign Date Time Temp Pulse Resp B/P (MAP) Pulse Ox O2 Delivery O2 Flow Rate FiO2 10/06/24 13:00 98.4 87 18 141/51 (81) 99 98.4 10/06/24 09:01 Room Air 0.0 10/06/24 09:01 21 Intake and Output 10/05/24 10/06/24 19:00 07:00 Intake Total 200 ml Balance 200 ml Intake Oral 200 ml Physical Exam Elderly male Not in overt distress Abdomen is soft No pitting edema Labs/Diagnostic Data Labs/Diagnostic Data Laboratory Tests Test 10/06/24 09:54 10/06/24 08:27 10/06/24 00:40 10/05/24 21:27 Range/Units White Blood Count 9.5 4.4-10.8 10^3/uL Red Blood Count 3.67 L 4.5-5.90 10^6/uL Hemoglobin 8.9 L 13.5-17.5 g/dL Hematocrit 28.2 L 41.0-53.0 % Mean Corpuscular Volume 77.0 L 80.0-100.0 fL Mean Corpuscular Hemoglobin 24.4 L 28.0-32.0 pg Mean Corpuscular Hemoglobin Concent 31.7 L 32.0-36.0 g/dL Red Cell Distribution Width 19.4 H 11.8-14.3 % Platelet Count 331 140-450 10^3/uL Mean Platelet Volume 7.0 6.9-10.8 fL Neutrophils (%) (Auto) 51.9 37.0-80.0 % Lymphocytes (%) (Auto) 34.9 10.0-50.0 % Monocytes (%) (Auto) 10.9 0.0-12.0 % Eosinophils (%) (Auto) 2.1 0.0-7.0 % Basophils (%) (Auto) 0.2 0.0-2.0 % Neutrophils # (Auto) 4.9 1.6-8.6 10 ^3/uL Lymphocytes # (Auto) 3.3 0.4-5.4 10 ^3/uL Monocytes # (Auto) 1.0 0-1.3 10 ^3/uL Eosinophils # (Auto) 0.2 0-0.8 10 ^3/uL Basophils # (Auto) 0 0-0.2 10 ^3/uL Nucleated Red Blood Cells 0.1 % B-Type Natriuretic Peptide 17.20 0-100 pg/mL Thyroid Stimulating Hormone (TSH) 0.84 0.55-4.78 uIU/mL Sodium Level 135 L 136-145 mmol/L Potassium Level 4.7 6.1 *H 3.5-5.1 mmol/L Chloride Level 107 98-107 mmol/L Carbon Dioxide Level 19 L 20-31 mmol/L Anion Gap 9 5-15 Blood Urea Nitrogen 47 H 9-23 mg/dL Creatinine 2.28 H 0.700-1.30 mg/dL Glomerular Filtration Rate Calc 28 >90 mL/min BUN/Creatinine Ratio 20.6 H 10.0-20.0 Serum Glucose 170 H 74-106 mg/dL Hemoglobin A1c 5.5 <5.7 % A1C Calcium Level 9.7 8.7-10.4 mg/dL Total Bilirubin 0.3 0.2-1.0 mg/dL Aspartate Amino Transferase (AST) 15 13-40 U/L Alanine Aminotransferase (ALT) 15 7-40 U/L Alkaline Phosphatase 68 46-116 U/L Total Protein 8.3 H 5.7-8.2 g/dL Albumin 5.0 H 3.2-4.8 g/dL Urine Color Colorless Yellow Urine Clarity Clear Clear Urine pH 5.5 5.0-9.0 Urine Specific [place] 1.016 1.001-1.035 Urine Protein Negative Negative Urine Ketones Negative Negative Urine Blood Negative Negative /uL Urine Nitrite Negative Negative Urine Bilirubin Negative Negative Urine Urobilinogen Normal Negative mg/dL Urine Leukocyte Esterase Negative Negative /uL Urine RBC <1 0 - 3 /hpf Urine Microscopic WBC < 1 0-3 /HPF Urine Squamous Epithelial Cells None seen <5 /hpf Urine Bacteria None seen None Seen /hpf Urine Creatinine 103.62 30.0-125.0 mg/dL Urine Sodium 78 40-220 mmol/L Urine Glucose Trace Normal mg/dL Test 10/05/24 21:15 10/05/24 17:18 Range/Units POC Glucose 101 70-106 mg/dl White Blood Count 7.8 4.4-10.8 10^3/uL Red Blood Count 3.67 L 4.5-5.90 10^6/uL Hemoglobin 8.8 L 13.5-17.5 g/dL Hematocrit 28.0 L 41.0-53.0 % Mean Corpuscular Volume 76.3 L 80.0-100.0 fL Mean Corpuscular Hemoglobin 24.1 L 28.0-32.0 pg Mean Corpuscular Hemoglobin Concent 31.5 L 32.0-36.0 g/dL Red Cell Distribution Width 19.4 H 11.8-14.3 % Platelet Count 358 140-450 10^3/uL Mean Platelet Volume 7.1 6.9-10.8 fL Neutrophils (%) (Auto) 68.4 37.0-80.0 % Lymphocytes (%) (Auto) 19.6 10.0-50.0 % Monocytes (%) (Auto) 9.7 0.0-12.0 % Eosinophils (%) (Auto) 2.0 0.0-7.0 % Basophils (%) (Auto) 0.3 0.0-2.0 % Neutrophils # (Auto) 5.4 1.6-8.6 10 ^3/uL Lymphocytes # (Auto) 1.5 0.4-5.4 10 ^3/uL Monocytes # (Auto) 0.8 0-1.3 10 ^3/uL Eosinophils # (Auto) 0.2 0-0.8 10 ^3/uL Basophils # (Auto) 0 0-0.2 10 ^3/uL Nucleated Red Blood Cells 0.0 % Sodium Level 135 L 136-145 mmol/L Potassium Level 6.1 *H 3.5-5.1 mmol/L Chloride Level 108 H 98-107 mmol/L Carbon Dioxide Level 18 L 20-31 mmol/L Anion Gap 9 5-15 Blood Urea Nitrogen 56 H 9-23 mg/dL Creatinine 3.17 H 0.700-1.30 mg/dL Glomerular Filtration Rate Calc 19 >90 mL/min BUN/Creatinine Ratio 17.7 10.0-20.0 Serum Glucose 104 74-106 mg/dL Calcium Level 9.3 8.7-10.4 mg/dL Microbiology Date/Time Source Procedure Growth Status 10/06/24 03:55 Nose MRSA Screen - Final Complete Assessment Acute kidney injury hemodynamically mediated Chronic kidney disease unspecified baseline unknown Polycystic kidney disease. Autosomal dominant? Hypertension Hyperkalemia Hold spironolactone Hold losartan for now Obtain further family history in regards to multiple cystic kidney disease Blood pressure management No emergent indication for dialysis at this time however patient will require dialysis education and management outpatient follow-up Recommend blood pressure control to achieve a systolic blood pressure less than 130 A low-salt diet. Plan discussed with: Patient IZZY BEAR MD Oct 06, 2024 16:23
--- NOTE | 2024-10-06 16:32 | DVHPNRES ---
Progress Note Date Seen: Oct 06, 2024 Resident Creating Document: MAGNOLIA SANCHEZ RESIDENT Has the PT tested + for MRSA If YES, has PT been informed?: No Medical Necessity Reason Pt with a Central, PICC or Fol: No Subjective Review of Systems This is 83-year-old male with a past medical history of hypertension and hyperlipidemia, who presents for evaluation of hyperkalemia after being referred by his primary care physician. The patient was informed that his outpatient potassium was 5.9 and advised to seek emergency care. On arrival, repeat labs confirmed worsening hyperkalemia with potassium of 6.1. The patient denies chest pain, palpitations, shortness of breath, weakness, or any gastrointestinal symptoms. The patient was seen and examined on the bedside. He is alert oriented x3. No overnight events and complaint of generalized weakness. No other active complaint this time. Consulted IR for bone marrow biopsy. Constitutional: Weakness, No: Fever, Chills, Sweats, Malaise, Other Eyes: No: Pain, Vision change, Conjunctivae inflammation, Eyelid inflammation, Other, Redness ENT: No: Ear pain, Ear discharge, Nose pain, Nose discharge, Nose congestion, Mouth pain, Mouth swelling, Throat pain, Throat swelling, Other Respiratory: Shortness of breath, improving No: Cough, Dry,Wheezing, Hemoptysis, Pleuritic Pain, Sputum, Wheezing, Other Cardiovascular: No: Chest Pain, Palpitations, Orthopnea, Paroxysmal Noc. Dyspnea, Edema, Lt Headedness, Other Gastrointestinal: No: Nausea, Vomiting, Abdominal Pain, Diarrhea, Constipation, Melena, Hematochezia, Other Musculoskeletal: No: other, neck pain, shoulder pain, arm pain, back pain, hand pain, leg pain, foot pain Neurological:; No: Weakness, Numbness, Incoordination, Change in speech, Confusion, Seizures Objective vital signs Vital Sign Date Time Temp Pulse Resp B/P (MAP) Pulse Ox O2 Delivery O2 Flow Rate FiO2 10/06/24 13:00 98.4 87 18 141/51 (81) 99 98.4 10/06/24 09:01 Room Air 0.0 10/06/24 09:01 21 Total Intake and Output 10/05/24 10/05/24 10/06/24 15:00 23:00 07:00 Intake Total 200 ml Balance 200 ml medications Current Medications Medications Dose Ordered Sig/Manjit Route Start Time Stop Time Status Last Admin Dose Admin Atorvastatin Calcium 10 mg HS PO 10/05/24 22:00 10/05/24 22:32 10 MG Ondansetron HCl 4 mg Q4HP PRN IV 10/05/24 21:15 Nitroglycerin 0.4 mg Q5MINP PRN SL 10/05/24 21:15 Amlodipine Besylate 5 mg DAILY PO 10/06/24 10:00 10/06/24 09:55 5 MG Examination Physical examination: General Appearance: Alert, Oriented X3, Cooperative, No acute distress HEENT: Atraumatic, PERRLA, EOMI, Mucous membrane moist/pink Respiratory: Clear to auscultation, Normal air movement Cardiovascular: Regular rate, Normal S1, Normal S2, No murmurs, no chest wall tenderness Abdominal: Normal bowel sounds, Soft, No tenderness, No hepatospenomegaly, No masses Extremities: No clubbing, No cyanosis, No edema, Normal pulses, No tenderness/swelling Skin: No rashes, No breakdown, No significant lesion Neuro: Normal gait, Normal speech, Strength at 5/5 X4 ext, Normal tone, Sensation intact, grossly intact cranial nerves. Psych/Mental Status: Mental status NL, Mood NL laboratory and microbiology Laboratory Tests 10/06/24 09:54 10/06/24 08:27 Test 10/06/24 08:27 Range/Units Serum Glucose 170 H 74-106 mg/dL Microbiology Date/Time Source Procedure Growth Status 10/06/24 03:55 Nose MRSA Screen - Final Complete Labs and/or images reviewed: Labs reviewed by me, Image(s) reviewed by me Problem List/Assessment/Plan Problem List/Assessment/Plan Assessment and plan: # Hyperkalemia likely due to chronic kidney disease # TONIA on CKD likely hemodynamically mediated /VMN # Possible intrinsic renal disease likely due to possible multiple myeloma # Hypertensive heart disease - EKG revealed sinus rhythm with borderline left axis deviation - Hyperkalemia protocol management - Potassium is 4.7 - BUN/creatinine is 47/2.28 - Renal ultrasound showed multiple paranoid later renal cyst, no hydronephrosis and renal cortical thickness and echogenicity are within normal limits. - Elevated free kappa light chain quantity and elevated free kappa /lambda ratio on 09/09/24 - Bone marrow biopsy on 12/18/24 was inconclusive - Patient is scheduled for bone marrow biopsy by IR tomorrow on 10/07/2024 - Amlodipine 5 mg p.o. daily . # Chronic anemia likely due to possible multiple myeloma - current hemoglobin/ hematocrit is 8.9/28.2 - Patient is scheduled for bone marrow biopsy by IR tomorrow on 10/07/2024 - EGD on 09/30/24 showed Small hiatal hernia ,Mild esophagitis LA classification B ,Mild antral gastritis and No ulcers no bleeding no varices. # PUD prophylaxis - Protonix 40 mg p.o. daily # DVT prophylaxis - SCD Goal of care discussed with the patient for more than 20 minutes full code Plan discussed with Dr. Avila Plan discussed with: Patient, Other My Orders My Orders Orders - MAGNOLIA SANCHEZ Procedure Category Date Status Time Electrocardigram EKG 10/06/24 Logged 08:33 Chest Portable XY 10/06/24 Resulted 08:46 Amlodipine Tablet PHA 10/06/24 In Process (Norvasc Tablet) 10:00 * Radiologist Consult CONS 10/06/24 Transmitted 14:07 Date of Service: Oct 06, 2024 Billing Provider: CHARLIE AVILA MD Common Visit Codes: [id number] INP/OBS CARE(HIGH) MAGNOLIA SANCHEZ Oct 06, 2024 16:32 CHARLIE AVILA MD Oct 06, 2024 21:17
[2024-10-06 17:07] LABS: % Iron Saturation 7.7 % (20-55)
[2024-10-06] MEDS: IRON SUCROSE COMPLEX 110 ML IV SCH (20:55)
[2024-10-06] MEDS: SODIUM BICARBONATE 650 MG TAB PO SCH (22:05)
[2024-10-07 01:00] VITALS: BP 126/57; PULSE 68; RESP 18; TEMP 98.3; O2SAT 96
[2024-10-07 05:00] VITALS: BP 119/60; PULSE 65; RESP 17; TEMP 98.1; O2SAT 98
[2024-10-07] MEDS: LIDOCAINE 2%HCL (LOCAL ANESTH.) INJ 10ml MDV ONE (07:15)
[2024-10-07 07:18] LABS: Calcium 9.5 mg/dL (8.7-10.4); Potassium 4.8 mmol/L (3.5-5.1); Sodium 138 mmol/L (136-145)
[2024-10-07 07:19] LABS: Anion Gap 10 (5-15); Carbon Dioxide 21 mmol/L (20-31)
[2024-10-07 07:20] LABS: Basophils # (auto) 0 10 ^3/uL (0-0.2); Basophils % (auto) 0.3 % (0.0-2.0); Eosinophils # (auto) 0.3 10 ^3/uL (0-0.8); Hematocrit 25.2 % (41.0-53.0); Hemoglobin 8.1 g/dL (13.5-17.5); Lymphocytes # (auto) 1.4 10 ^3/uL (0.4-5.4); Lymphocytes % (auto) 25.1 % (10.0-50.0); Mean Corpuscular Hemoglobin 24.2 pg (28.0-32.0); Mean Corpuscular Volume 75.8 fL (80.0-100.0); Monocytes # (auto) 0.8 10 ^3/uL (0-1.3); Monocytes % (auto) 14.7 % (0.0-12.0); Neutrophils % (auto) 53.9 % (37.0-80.0); Platelet Count (auto) 304 10^3/uL (140-450); Red Blood Cells 3.33 10^6/uL (4.5-5.90); Red Cell Distribution Width 19.9 % (11.8-14.3); White Blood Cell 5.6 10^3/uL (4.4-10.8)
[2024-10-07 07:25] LABS: BUN/Creatinine Ratio 18.8 (10.0-20.0); Glucose 85 mg/dL (74-106)
[2024-10-07 07:26] LABS: Phosphorus 4.1 mg/dL (2.4-5.1)
[2024-10-07] MEDS: MIDAZOLAM HCL 2MG/2ML 2ml VIAL (1mg/ml) ONE (07:30)
[2024-10-07] MEDS: fentaNYL CITRATE 100 MCG/2 ML VL ONE (07:30)
[2024-10-07 07:31] LABS: Blood Urea Nitrogen 34 mg/dL (9-23); Chloride 107 mmol/L (98-107)
[2024-10-07 08:00] VITALS: PULSE 67; RESP 16; O2SAT 98
[2024-10-07 08:33] VITALS: BP 141/56; PULSE 67; RESP 16; TEMP 98; O2SAT 98
--- NOTE | 2024-10-07 11:10 | DVH ---
PROCEDURE: CT GUIDED BONE MARROW BIOPSY HISTORY: BONE BIOPSY DOCUMENTATION: Informed consent was obtained and a procedural time out was performed. SEDATION: Moderate sedation was utilized during the procedure. The patient received benzodiazepines a nd opioids, the dosing of which was documented in the patient s permanent medical record. Pre-sedatio n history and evaluation revealed no contraindications to sedation. The patient s level of consciousn ess and physiologic status was monitored continuously by the physician and nursing staff throughout t he procedure. Total intra-service moderate sedation time was 30 minutes. TECHNIQUE: The skin over the left was sterilely prepped, draped, and infiltrated with 1% lidocaine. U sing CT guidance, a 11-gauge coaxial needle was directed into left. The 12-gauge DTVCast biopsy nee dle was inserted coaxially and 1 core biopsy specimens were obtained. 20 cc of bone marrow aspirate and a bone marrow core was obtained. The coaxial needle was then removed and hemostasis was achieved with manual compression. Sterile dressings were applied. FINDINGS: Limited CT imaging demonstrates left. Imaging confirms the needle tip within left. Post-bio psy CT imaging showed no apparent complication. IMPRESSION: SUCCESSFUL CT GUIDED BONE MARROW BIOPSY. PLEASE FOLLOW UP WITH PATHOLOGY FOR FINAL RESULTS. Radiation dose information: CTDI vol 185.4 mGy; DLP mGycm [address] for [address] are the volume Computed Tomography (CT) Dose Index (CTDIvol) and the Dose Length Product (DLP), and are measured in units of mGy and mGy-cm, respectively. These indicators are not patient dose, but values generated from the CT scanner acquisition factors. The report includes radiation exposure data for exposures received during this examination. If multiple reports are prod uced from this examination, the exposure data is duplicated in each report. The exposure data report ed is indicative, but not determinative, of the radiation dose received by this patient.
[2024-10-07] MEDS ORDERED: SODI650T PO (12:37)
[2024-10-07 13:00] VITALS: BP 137/59; PULSE 75; RESP 17; TEMP 97.9; O2SAT 99
[2024-10-07 13:15] VITALS: BP 141/56; PULSE 67; RESP 16; TEMP 98.7; O2SAT 98
--- NOTE | 2024-10-07 14:07 | DVHPN2 ---
Progress Note Date Seen: Oct 07, 2024 Has the PT tested + for MRSA If YES, has PT been informed?: No Medical Necessity Reason Pt with a Central, PICC or Fol: No Subjective Patient reports: Feels better Objective vital signs Vital Sign Date Time Temp Pulse Resp B/P (MAP) Pulse Ox O2 Delivery O2 Flow Rate FiO2 10/07/24 13:15 98.7 67 16 98 10/07/24 13:00 137/59 (85) 10/07/24 08:00 Room Air* 0 21 Total Intake and Output 10/06/24 10/06/24 10/07/24 15:00 23:00 07:00 Intake Total 350 ml 2280 ml 1600 ml Balance 350 ml 2280 ml 1600 ml medications Current Medications Medications Dose Ordered Sig/Manjit Route Start Time Stop Time Status Last Admin Dose Admin Atorvastatin Calcium 10 mg HS PO 10/05/24 22:00 10/06/24 22:06 10 MG Ondansetron HCl 4 mg Q4HP PRN IV 10/05/24 21:15 Nitroglycerin 0.4 mg Q5MINP PRN SL 10/05/24 21:15 Amlodipine Besylate 5 mg DAILY PO 10/06/24 10:00 10/07/24 10:12 5 MG Sodium Bicarbonate 650 mg TID PO 10/06/24 22:00 10/07/24 05:53 650 MG Iron Sucrose 110 ml @ 110 mls/hr DAILY@1200 IV 10/06/24 20:00 10/10/24 12:59 10/07/24 12:48 110 MLS/HR Examination: GENERAL:Normal, CVS:Normal laboratory and microbiology Laboratory Tests 10/07/24 06:39 Test 10/07/24 06:39 Range/Units Serum Glucose 85 74-106 mg/dL Microbiology Date/Time Source Procedure Growth Status 10/06/24 03:55 Nose MRSA Screen - Final Complete Problem List/Assessment/Plan Problem List/Assessment/Plan Acute kidney injury hemodynamically mediated Chronic kidney disease unspecified baseline unknown Polycystic kidney disease. Autosomal dominant? Hypertension Hyperkalemia slight improvement in cr Hold spironolactone Hold losartan for now Obtain further family history in regards to multiple cystic kidney disease per primary team has + SPEP and UPEP now s/p BM biopsy Blood pressure management Recommend blood pressure control to achieve a systolic blood pressure less than 130 A low-salt diet. recommend outpatient clinic f/u for additional w/u Plan discussed with: Patient My Orders My Orders Orders - IZZY BEAR MD Procedure Category Date Status Time Sodium Bicarb Tab PHA 10/06/24 In Process 22:00 Iron Sucrose Complex PHA 10/06/24 In Process (Venofer) 20:00 IZZY BEAR MD Oct 07, 2024 14:07
--- NOTE | 2024-10-07 17:43 | DVHDSRES ---
Discharge Summary Date of Admission Resident Creating Document: MAGNOLIA SANCHEZ RESIDENT Oct 05, 2024 at 21:04 Date of Discharge: Oct 07, 2024 Labs/Diagnostic Data: Laboratory Results Test 10/07/24 06:39 10/06/24 09:54 10/06/24 08:27 10/06/24 00:40 White Blood Count 5.6 10^3/uL (4.4-10.8) Red Blood Count 3.33 10^6/uL (4.5-5.90) Hemoglobin 8.1 g/dL (13.5-17.5) Hematocrit 25.2 % (41.0-53.0) Mean Corpuscular Volume 75.8 fL (80.0-100.0) Mean Corpuscular Hemoglobin 24.2 pg (28.0-32.0) Mean Corpuscular Hemoglobin Concent 32.0 g/dL (32.0-36.0) Red Cell Distribution Width 19.9 % (11.8-14.3) Platelet Count 304 10^3/uL (140-450) Mean Platelet Volume 7.1 fL (6.9-10.8) Neutrophils (%) (Auto) 53.9 % (37.0-80.0) Lymphocytes (%) (Auto) 25.1 % (10.0-50.0) Monocytes (%) (Auto) 14.7 % (0.0-12.0) Eosinophils (%) (Auto) 6.0 % (0.0-7.0) Basophils (%) (Auto) 0.3 % (0.0-2.0) Neutrophils # (Auto) 3.0 10 ^3/uL (1.6-8.6) Lymphocytes # (Auto) 1.4 10 ^3/uL (0.4-5.4) Monocytes # (Auto) 0.8 10 ^3/uL (0-1.3) Eosinophils # (Auto) 0.3 10 ^3/uL (0-0.8) Basophils # (Auto) 0 10 ^3/uL (0-0.2) Nucleated Red Blood Cells 0.0 % Sodium Level 138 mmol/L (136-145) Potassium Level 4.8 mmol/L (3.5-5.1) Chloride Level 107 mmol/L (98-107) Carbon Dioxide Level 21 mmol/L (20-31) Anion Gap 10 (5-15) Blood Urea Nitrogen 34 mg/dL (9-23) Creatinine 1.81 mg/dL (0.700-1.30) Glomerular Filtration Rate Calc 37 mL/min (>90) BUN/Creatinine Ratio 18.8 (10.0-20.0) Serum Glucose 85 mg/dL (74-106) Calcium Level 9.5 mg/dL (8.7-10.4) Phosphorus Level 4.1 mg/dL (2.4-5.1) Iron Level 27 ug/dL (65-175) Total Iron Binding Capacity 349 ug/dL (250-425) Percent Iron Saturation 7.7 % (20-55) Ferritin 13.1 ng/mL (22-322) B-Type Natriuretic Peptide 17.20 pg/mL (0-100) Thyroid Stimulating Hormone (TSH) 0.84 uIU/mL (0.55-4.78) Hemoglobin A1c 5.5 % A1C (<5.7) Total Bilirubin 0.3 mg/dL (0.2-1.0) Aspartate Amino Transferase (AST) 15 U/L (13-40) Alanine Aminotransferase (ALT) 15 U/L (7-40) Alkaline Phosphatase 68 U/L (46-116) Total Protein 8.3 g/dL (5.7-8.2) Albumin 5.0 g/dL (3.2-4.8) Urine Color Colorless (Yellow) Urine Clarity Clear (Clear) Urine pH 5.5 (5.0-9.0) Urine Specific [place] 1.016 (1.001-1.035) Urine Protein Negative (Negative) Urine Ketones Negative (Negative) Urine Blood Negative /uL (Negative) Urine Nitrite Negative (Negative) Urine Bilirubin Negative (Negative) Urine Urobilinogen Normal mg/dL (Negative) Urine Leukocyte Esterase Negative /uL (Negative) Urine RBC <1 /hpf (0 - 3) Urine Microscopic WBC < 1 /HPF (0-3) Urine Squamous Epithelial Cells None seen /hpf (<5) Urine Bacteria None seen /hpf (None Seen) Urine Creatinine 103.62 mg/dL (30.0-125.0) Urine Sodium 78 mmol/L (40-220) Urine Glucose Trace mg/dL (Normal) Test 10/05/24 21:15 POC Glucose 101 mg/dl (70-106) Other Laboratory Tests 10/07/24 06:39 Final Diagnosis/Problems List Hyperkalemia Discharge Disposition: Home Discharge Instruct/Medications Diet: Renal Activity: No Restrictions, As Tolerated Follow Up/Referral: Follow up with PCP in 1 week Follow up with hemato-oncologist to discuss bone marrow biopsy result in 2 weeks. Follow up with outpatient nephrology in 1 to 2 weeks Medications: Continue home medications Discharge Statement: "Patient was advised to return to the ER or call 911 if any headaches, dizziness, shortness of breath, chest pain, abdominal pain, bleeding, fevers, or worsening of medical condition. Patient was counseled about treatment plan, medications, possible side effects, patientverbalized understanding. All questions were answered to the best of my ability. This discharge took greater then 30 minutes in planning, reviewing documentation, counseling the patient, and discussing with other team members." ASSESSMENT ASSESSMENT Assessment Hyperkalemia MAGNOLIA SANCHEZ RESIDENT Oct 07, 2024 17:43
--- NOTE | 2024-10-07 17:56 | DVHDSRES ---
Discharge Summary Date of Admission Resident Creating Document: MAGNOLIA SANCHEZ RESIDENT Oct 05, 2024 at 21:04 Date of Discharge: Oct 07, 2024 Admitting Diagnosis # Hyperkalemia likely due to chronic kidney disease Wounds: No wound was present Labs/Diagnostic Data: Laboratory Results Test 10/07/24 06:39 10/06/24 09:54 10/06/24 08:27 10/06/24 00:40 White Blood Count 5.6 10^3/uL (4.4-10.8) Red Blood Count 3.33 10^6/uL (4.5-5.90) Hemoglobin 8.1 g/dL (13.5-17.5) Hematocrit 25.2 % (41.0-53.0) Mean Corpuscular Volume 75.8 fL (80.0-100.0) Mean Corpuscular Hemoglobin 24.2 pg (28.0-32.0) Mean Corpuscular Hemoglobin Concent 32.0 g/dL (32.0-36.0) Red Cell Distribution Width 19.9 % (11.8-14.3) Platelet Count 304 10^3/uL (140-450) Mean Platelet Volume 7.1 fL (6.9-10.8) Neutrophils (%) (Auto) 53.9 % (37.0-80.0) Lymphocytes (%) (Auto) 25.1 % (10.0-50.0) Monocytes (%) (Auto) 14.7 % (0.0-12.0) Eosinophils (%) (Auto) 6.0 % (0.0-7.0) Basophils (%) (Auto) 0.3 % (0.0-2.0) Neutrophils # (Auto) 3.0 10 ^3/uL (1.6-8.6) Lymphocytes # (Auto) 1.4 10 ^3/uL (0.4-5.4) Monocytes # (Auto) 0.8 10 ^3/uL (0-1.3) Eosinophils # (Auto) 0.3 10 ^3/uL (0-0.8) Basophils # (Auto) 0 10 ^3/uL (0-0.2) Nucleated Red Blood Cells 0.0 % Sodium Level 138 mmol/L (136-145) Potassium Level 4.8 mmol/L (3.5-5.1) Chloride Level 107 mmol/L (98-107) Carbon Dioxide Level 21 mmol/L (20-31) Anion Gap 10 (5-15) Blood Urea Nitrogen 34 mg/dL (9-23) Creatinine 1.81 mg/dL (0.700-1.30) Glomerular Filtration Rate Calc 37 mL/min (>90) BUN/Creatinine Ratio 18.8 (10.0-20.0) Serum Glucose 85 mg/dL (74-106) Calcium Level 9.5 mg/dL (8.7-10.4) Phosphorus Level 4.1 mg/dL (2.4-5.1) Iron Level 27 ug/dL (65-175) Total Iron Binding Capacity 349 ug/dL (250-425) Percent Iron Saturation 7.7 % (20-55) Ferritin 13.1 ng/mL (22-322) B-Type Natriuretic Peptide 17.20 pg/mL (0-100) Thyroid Stimulating Hormone (TSH) 0.84 uIU/mL (0.55-4.78) Hemoglobin A1c 5.5 % A1C (<5.7) Total Bilirubin 0.3 mg/dL (0.2-1.0) Aspartate Amino Transferase (AST) 15 U/L (13-40) Alanine Aminotransferase (ALT) 15 U/L (7-40) Alkaline Phosphatase 68 U/L (46-116) Total Protein 8.3 g/dL (5.7-8.2) Albumin 5.0 g/dL (3.2-4.8) Urine Color Colorless (Yellow) Urine Clarity Clear (Clear) Urine pH 5.5 (5.0-9.0) Urine Specific [place] 1.016 (1.001-1.035) Urine Protein Negative (Negative) Urine Ketones Negative (Negative) Urine Blood Negative /uL (Negative) Urine Nitrite Negative (Negative) Urine Bilirubin Negative (Negative) Urine Urobilinogen Normal mg/dL (Negative) Urine Leukocyte Esterase Negative /uL (Negative) Urine RBC <1 /hpf (0 - 3) Urine Microscopic WBC < 1 /HPF (0-3) Urine Squamous Epithelial Cells None seen /hpf (<5) Urine Bacteria None seen /hpf (None Seen) Urine Creatinine 103.62 mg/dL (30.0-125.0) Urine Sodium 78 mmol/L (40-220) Urine Glucose Trace mg/dL (Normal) Test 4/22/25 21:15 POC Glucose 101 mg/dl (70-106) Other Laboratory Tests 10/07/24 06:39 Brief Hx & Hospital Course: This is 83-year-old male with a past medical history of hypertension and hyperlipidemia, who presents for evaluation of hyperkalemia after being referred by his primary care physician. The patient was informed that his outpatient potassium was 5.9 and advised to seek emergency care. On arrival, repeat labs confirmed worsening hyperkalemia with potassium of 6.1. The patient denies chest pain, palpitations, shortness of breath, weakness, or any gastrointestinal symptoms. Hospital course: Initial EKG revealed sinus rhythm with borderline left axis deviation. was treated with hyperkalemia protocol management potassium dropped to 4.7 from 6.1. nephrology was on board for possible TONIA on CKD and creatinine dropped to 1.81. Renal ultrasound showed multiple paranoid later renal cyst, no hydronephrosis and renal cortical thickness and echogenicity are within normal limits. EGD on 09/30/24 showed Small hiatal hernia ,Mild esophagitis LA classification B ,Mild antral gastritis and No ulcers no bleeding no varices. Elevated free kappa light chain quantity and elevated free kappa /lambda ratio on 09/09/24 .Bone marrow biopsy on 06/02/24 was inconclusive. Patient underwent bone marrow biopsy by IR today on 10/07/2024. Nephrology recommended outpatient follow up and discontinue losartan and spironolactone. patient is being discharged to home and advised to continue home medications and follow up with PCP in 7 days to check BMP and also advised to follow up with outpatient Nephrology and hemato-oncology to discuss bone marrow biopsy report in 1-2 weeks. Physical examination: General Appearance: Alert, Oriented X3, Cooperative, No acute distress HEENT: Atraumatic, PERRLA, EOMI, Mucous membrane moist/pink Respiratory: Clear to auscultation, Normal air movement Cardiovascular: Regular rate, Normal S1, Normal S2, No murmurs, no chest wall tenderness Abdominal: Normal bowel sounds, Soft, No tenderness, No hepatospenomegaly, No masses Extremities: No clubbing, No cyanosis, No edema, Normal pulses, No tenderness/swelling Skin: No rashes, No breakdown, No significant lesion Neuro: Normal gait, Normal speech, Strength at 5/5 X4 ext, Normal tone, Sensation intact, Cranial nerves 3-12 NL, Reflexes 2+ Psych/Mental Status: Mental status NL, Mood NL Consults/Reason for consult Nephrology and IR were consulted Operations or Procedures PROCEDURE: CT GUIDED BONE MARROW BIOPSY HISTORY: BONE BIOPSY DOCUMENTATION: Informed consent was obtained and a procedural time out was performed. SEDATION: Moderate sedation was utilized during the procedure. The patient received benzodiazepines and opioids, the dosing of which was documented in the patient s permanent medical record. Pre-sedation history and evaluation revealed no contraindications to sedation. The patient s level of consciousness and physiologic status was monitored continuously by the physician and nursing staff throughout the procedure. Total intra-service moderate sedation time was 30 minutes. TECHNIQUE: The skin over the left was sterilely prepped, draped, and infiltrated with 1% lidocaine. Using CT guidance, a 11-gauge coaxial needle was directed into left. The 12-gauge OnControl biopsy needle was inserted coaxially and 1 core biopsy specimens were obtained. 20 cc of bone marrow aspirate and a bone marrow core was obtained. The coaxial needle was then removed and hemostasis was achieved with manual compression. Sterile dressings were applied. FINDINGS: Limited CT imaging demonstrates left. Imaging confirms the needle tip within left. Post-biopsy CT imaging showed no apparent complication. IMPRESSION: SUCCESSFUL CT GUIDED BONE MARROW BIOPSY. PLEASE FOLLOW UP WITH PATHOLOGY FOR FINAL RESULTS. Radiation dose information: CTDI vol 185.4 mGy; DLP mGycm [address] dose [address] are the volume Computed Tomography (CT) Dose Index (CTDIvol) and the Dose Length Product (DLP), and are measured in units of mGy and mGy-cm, respectively. These indicators are not patient dose, but values generated from the CT scanner acquisition factors. The report includes radiation exposure data for exposures received during this examination. If multiple reports are produced from this examination, the exposure data is duplicated in each report. The exposure data reported is indicative, but not determinative, of the radiation dose received by this patient. Renal Ultrasound: TECHNIQUE: Multiple real-time sonographic images of the kidneys and bladder were obtained. COMPARISON: None FINDINGS: Right kidney measures 14.5 cm in length and the left 15.5 cm. Multiple cysts noted in both kidneys. The renal cortical thickness and echogenicity are within normal limits. No hydronephrosis. Urinary bladder demonstrates a prevoid volume of 157 mL and appears unremarkable. Prostate gland is within normal limits in size measuring approximately 18 mL. IMPRESSION: Multiple bilateral renal cysts. No hydronephrosis. Condition at Discharge: Stable Final Diagnosis/Problems List # Hyperkalemia likely due to chronic kidney disease # TONIA on CKD likely hemodynamically mediated /VMN # Possible intrinsic renal disease likely due to possible multiple myeloma # Hypertensive heart disease # Chronic anemia likely due to possible multiple myeloma, s/p bone marrow biopsy today Discharge Disposition: Home Discharge Instruct/Medications Diet: Renal Activity: No Restrictions, As Tolerated Follow Up/Referral: Follow up with PCP in 1 week Follow up with hemato-oncologist to discuss bone marrow biopsy result in 2 weeks. Follow up with outpatient nephrology in 1 to 2 weeks Medications: Continue home medications Discharge Statement: "Patient was advised to return to the ER or call 911 if any headaches, dizziness, shortness of breath, chest pain, abdominal pain, bleeding, fevers, or worsening of medical condition. Patient was counseled about treatment plan, medications, possible side effects, patientverbalized understanding. All questions were answered to the best of my ability. This discharge took greater then 30 minutes in planning, reviewing documentation, counseling the patient, and discussing with other team members." ASSESSMENT ASSESSMENT Assessment Hyperkalemia Date of Service: Oct 07, 2024 Billing Provider: BREANNE MEIER DO Common Visit Codes: 08427-GQG/OBS DISCH DAY >30min MAGNOLIA SANCHEZ RESIDENT Oct 07, 2024 17:56 BREANNE MEIER DO Oct 09, 2024 22:46
== END 2024-10-07 14:45 | disposition home or self-care (01) | DRG 640 ==
LOC: ER 16:45 → OVERFLOW 21:04 → TELE-WESTW 10-06 02:37
PROVIDERS: ADMIT Internal Medicine; ATTEND Internal Medicine
PROC: 07DT3ZX Extraction of Bone Marrow, Percutaneous Approach, Diagnostic (ICD-10-PCS; principal; 2024-10-07)
DX: E87.5 Hyperkalemia (principal); N17.0 Acute kidney failure with tubular necrosis; C90.00 Multiple myeloma not having achieved remission; N18.9 Chronic kidney disease, unspecified; E11.22 Type 2 diabetes mellitus with diabetic chronic kidney disease; E78.5 Hyperlipidemia, unspecified; I12.9 Hypertensive chronic kidney disease with stage 1 through stage 4 chronic kidney disease, or unspecified chronic kidney disease; D64.9 Anemia, unspecified; Z79.82 Long term (current) use of aspirin; Z79.2 Long term (current) use of antibiotics; Z82.49 Family history of ischemic heart disease and other diseases of the circulatory system; Z83.3 Family history of diabetes mellitus; Z79.899 Other long term (current) drug therapy
CPT/HCPCS: 10005; 36415; 71045; 72192; 76775; 77012; 80048; 80053; 81001; 82570; 82728; 82962; 83036; 83540; 83550; 83880; 84100; 84132; 84300; 84443; 85025; 85610; 85730; 87081; 93005; 93306; 94640; 96365; 96375; G0378; J1756; J1815; J2003; J2250

== ENCOUNTER → 2024-10-05 | Outpatient (CLI) | payer OTHER ==
[~2024-10-05] MED LIST changes: -ACET-1080 PO; -ACET1CAP14 PO; -AMLO1TAB22 PO; -ASPI-543 PO; -AZIT500T66 PO; -HYDR25TA5 PO; +SODI650T PO; -TAMIFLU PO
[2024-10-05 13:58] LABS: Basophils # (auto) 0 10 ^3/uL (0-0.2); Basophils % (auto) 0.4 % (0.0-2.0); Eosinophils # (auto) 0.2 10 ^3/uL (0-0.8); Eosinophils % (auto) 2.1 % (0.0-7.0); Hematocrit 29.1 % (41.0-53.0); Hemoglobin 9.2 g/dL (13.5-17.5); Lymphocytes # (auto) 1.2 10 ^3/uL (0.4-5.4); Lymphocytes % (auto) 16.7 % (10.0-50.0); Mean Corpuscular Hemoglobin 24.2 pg (28.0-32.0); Mean Corpuscular Hgb Conc. 31.5 g/dL (32.0-36.0); Mean Corpuscular Volume 76.8 fL (80.0-100.0); Monocytes # (auto) 0.8 10 ^3/uL (0-1.3); Monocytes % (auto) 10.5 % (0.0-12.0); Neutrophils # (auto) 5.1 10 ^3/uL (1.6-8.6); Neutrophils % (auto) 70.3 % (37.0-80.0); Platelet Count (auto) 358 10^3/uL (140-450); Red Blood Cells 3.79 10^6/uL (4.5-5.90); Red Cell Distribution Width 19.3 % (11.8-14.3); White Blood Cell 7.2 10^3/uL (4.4-10.8)
[2024-10-05 14:13] LABS: INR 0.99 (0.9-1.15); Prothrombin Time 10.5 sec (9.3-11.8)
[2024-10-05 14:16] LABS: Sodium 137 mmol/L (136-145)
[2024-10-05 14:17] LABS: Anion Gap 10 (5-15); Calcium 9.4 mg/dL (8.7-10.4)
[2024-10-05 14:22] LABS: BUN/Creatinine Ratio 17.7 (10.0-20.0); Glucose 101 mg/dL (74-106)
[2024-10-05 14:24] LABS: Blood Urea Nitrogen 53 mg/dL (9-23); Carbon Dioxide 20 mmol/L (20-31); Chloride 107 mmol/L (98-107)
[2024-10-05 14:28] LABS: Potassium 5.9 mmol/L (3.5-5.1)
== END | disposition home or self-care (01) ==
LOC: LAB 13:36
PROVIDERS: ATTEND Internal Medicine
DX: D64.9 Anemia, unspecified (principal)
CPT/HCPCS: 36415; 80048; 85025; 85610; 85730

== ENCOUNTER → 2024-10-27 | Outpatient (CLI) | payer OTHER ==
[~2024-10-27] MED LIST changes: -LOSA-534 PO; +SODI650T PO; -SPIR25TA8 PO
[2024-10-27 11:37] LABS: Basophils # (auto) 0 10 ^3/uL (0-0.2); Eosinophils # (auto) 0.3 10 ^3/uL (0-0.8); Monocytes # (auto) 0.7 10 ^3/uL (0-1.3)
[2024-10-27 11:38] LABS: Basophils % (auto) 0.3 % (0.0-2.0); Eosinophils % (auto) 5.7 % (0.0-7.0); Hemoglobin 10.1 g/dL (13.5-17.5); Lymphocytes # (auto) 1.9 10 ^3/uL (0.4-5.4); Lymphocytes % (auto) 33.9 % (10.0-50.0); Mean Corpuscular Hemoglobin 24.5 pg (28.0-32.0); Mean Corpuscular Hgb Conc. 31.4 g/dL (32.0-36.0); Mean Corpuscular Volume 77.8 fL (80.0-100.0); Monocytes % (auto) 13.4 % (0.0-12.0); Neutrophils # (auto) 2.6 10 ^3/uL (1.6-8.6); Neutrophils % (auto) 46.7 % (37.0-80.0); Platelet Count (auto) 436 10^3/uL (140-450); Red Blood Cells 4.12 10^6/uL (4.5-5.90); White Blood Cell 5.5 10^3/uL (4.4-10.8)
[2024-10-27 12:00] LABS: % Iron Saturation 11.3 % (20-55); Alanine Aminotransferase 19 U/L (7-40); Albumin 4.7 g/dL (3.2-4.8); Alkaline Phosphatase 67 U/L (46-116); Anion Gap 9 (5-15); Aspartate Aminotransferase 17 U/L (13-40); BUN/Creatinine Ratio 12.2 (10.0-20.0); Bilirubin, Total 0.3 mg/dL (0.2-1.0); Blood Urea Nitrogen 19 mg/dL (9-23); Calcium 9.9 mg/dL (8.7-10.4); Carbon Dioxide 24 mmol/L (20-31); Glucose 87 mg/dL (74-106); Potassium 4.3 mmol/L (3.5-5.1); Sodium 141 mmol/L (136-145)
[2024-10-27 12:01] LABS: Chloride 108 mmol/L (98-107)
[2024-10-27 12:03] LABS: Folate (Folic Acid) 23.11 ng/mL (>5.38)
[2024-10-28 08:07] LABS: Immunoglobulin A 307 mg/dL (61-437); Immunoglobulin G, Serum 1640 mg/dL (603-1613); Immunoglobulin M 66 mg/dL (15-143)
[2024-10-28 12:07] LABS: Kappa Lite Chain Free Serum 249.6 mg/L (3.3-19.4)
== END | disposition home or self-care (01) ==
LOC: LAB 11:13
PROVIDERS: ATTEND Student in an Organized Health Care Education/Training Program
DX: D64.9 Anemia, unspecified (principal); D47.2 Monoclonal gammopathy; M89.50 Osteolysis, unspecified site; K41.90 Unilateral femoral hernia, without obstruction or gangrene, not specified as recurrent
CPT/HCPCS: 36415; 80053; 82607; 82728; 82746; 82784; 83521; 83540; 83550; 84155; 84165; 85025; 86334

== ENCOUNTER 2024-12-02 11:19 | Outpatient (CLI) | payer OTHER ==
[2024-12-02 11:37] LABS: Basophils # (auto) 0 10 ^3/uL (0-0.2); Basophils % (auto) 0.4 % (0.0-2.0); Eosinophils # (auto) 0.3 10 ^3/uL (0-0.8); Eosinophils % (auto) 5.6 % (0.0-7.0); Hematocrit 29.6 % (41.0-53.0); Hemoglobin 9.5 g/dL (13.5-17.5); Lymphocytes % (auto) 40.1 % (10.0-50.0); Mean Corpuscular Hemoglobin 24.4 pg (28.0-32.0); Mean Corpuscular Hgb Conc. 32.2 g/dL (32.0-36.0); Mean Corpuscular Volume 75.8 fL (80.0-100.0); Monocytes # (auto) 0.7 10 ^3/uL (0-1.3); Monocytes % (auto) 13.4 % (0.0-12.0); Neutrophils % (auto) 40.5 % (37.0-80.0); Platelet Count (auto) 296 10^3/uL (140-450); Red Cell Distribution Width 21.5 % (11.8-14.3)
== END 2024-12-02 17:00 | disposition home or self-care (01) ==
LOC: LAB 11:19
PROVIDERS: ATTEND Internal Medicine
DX: D64.9 Anemia, unspecified (principal)
CPT/HCPCS: 36415; 83540; 84132; 85025

== ENCOUNTER 2024-12-20 10:58 | Emergency (ER) | payer OTHER ==
[~2024-12-20] VITALS: Ht 175.3 cm; Wt 89.8 kg
--- NOTE | 2024-12-20 11:39 | ED.PDOC ---
History of Present Illness HPI Comments 84 y.o male with PMHx of anemia, HTN, HLD, and CKD, presents to the ED for a chief complaint of generalized weakness that started 2 weeks ago. Patient mentions same complaint 1.5 months ago, was seen at the hospital and admitted due to low HGB count and had a blood transfusion. Patient reports at this time no other associating symptoms such as chest pain, SOB, leg swelling, nausea or vomiting. Time Seen by MD: 11:21 Primary Care Provider: edouard Reviewed Notes: Nurses Notes, Medications, Allergies Allergies: Coded Allergies: NO KNOWN ALLERGIES (Unverified , 08/21/21) Home Meds Active Scripts Sodium Bicarbonate (Sodium Bicarbonate) 650 Mg Tab, 650 MG PO TID for 14 Days, #42 TAB Prov:MAGNOLIA SANCHEZ RESIDENT 10/07/24 Reported Medications Amlodipine Besylate (Amlodipine Besylate) 10 Mg Tab, 1 TAB PO DAILY for 90 Days, #90 09/29/24 Simvastatin (Simvastatin) 20 Mg Tab, 1 TAB PO DAILY for 90 Days, #90 11/28/10 Information Source: Patient Mode of Arrival: Ambulatory Severity: Moderate Timing: Weeks (2) Duration: Since onset Past Medical History PAST MEDICAL HISTORY: Anemia, CKF, High Lipids, HTN Surgical History (Other): Bilateral eyes and left index amputation Family History Family History: Reviewed,noncontributory to illness, Family hx of HTN Social History Smoker: Non-Smoker Alcohol: Denies ETOH Use Drugs: Denies Drug Use Lives In: Home Constitutional: reports: weakness; denies: chills, diaphoresis, fatigue, fever, malaise, sweats, others EENTM: denies: blurred vision, double vision, ear bleeding, ear discharge, ear drainage, ear pain, ear ringing, eye pain, eye redness, hearing loss, mouth pain, mouth swelling, nasal discharge, nose bleeding, nose congestion, nose pain, photophobia, tearing, throat pain, throat swelling, voice changes, others Respiratory: denies: cough, hemoptysis, orthopnea, SOB at rest, shortness of breath, SOB with excertion, stridor, wheezing, others Cardiovascular: denies: chest pain, dizzy spells, diaphoresis, Dyspnea on exertion, edema, irregular heart beat, left arm pain, lightheadedness, palpitations, PND, syncope, others Gastrointestinal: denies: abdomen distended, abdominal pain, blood streaked bowels, constipated, diarrhea, dysphagia, difficulty swallowing, hematemesis, melena, nausea, poor appetite, poor fluid intake, rectal bleeding, rectal pain, vomiting, others Genitourinary: denies: burning, dysuria, flank pain, frequency, hematuria, incontinence, penile discharge, penile sore, pain, testicle pain, testicle swelling, urgency, others Neurological: denies: dizziness, fainting, headache, left sided numbness, left sided weakness, numbness, paresthesia, pre-existing deficit, right sided numbness, right sided weakness, seizure, speech problems, tingling, tremors, weakness, others Musculoskeletal: denies: back pain, gout, joint pain, joint swelling, muscle pain, muscle stiffness, neck pain, others Integumetry: denies: bruises, change in color, change in hair/nails, dryness, laceration, lesions, lumps, rash, wounds, others Allergic/Immunocompromised: denies: Difficulty Healing, Frequent Infections, Hives, Itching, others Hematologic/Lymphatic: denies: anemia, blood clots, easy bleeding, easy bruising, swollen glands, others Endocrine: denies: excessive hunger, excessive sweating, excessive thirst, excessive urination, flushing, intolerance to cold, intolerance to heat, unexplained weight gain, unexplained weight loss, others Psychiatric: denies: anxiety, bipolar disorder, depression, hopeless, panic disorder, schizophrenia, sleepless, suicidal, others All Other Systems: Reviewed and Negative Physical Exam General Appearance: No Apparent Distress HEENT: Normal ENT Inspection, Pharynx Normal, TMs Normal Neck: Full Range of Motion, Non-Tender, Normal, Normal Inspection Respiratory: Chest Non-Tender, Lungs Clear, No Accessory Muscle Use, No Respiratory Distress, Normal Breath Sounds Cardiovascular: No Edema, No JVD, No Murmur, No Gallop, Normal Peripheral Pulses, Regular Rate/Rhythm Breast Exam: Deferred Gastrointestinal: No Organomegaly, Non Tender, No Pulsatile Mass, Normal Bowel Sounds, Soft Genitalia: Deferred Pelvic: Deferred Rectal: Deferred Extremities: No calf tenderness, Normal capillary refill, Normal inspection, Normal range of motion, Non-tender, No pedal edema Musculoskeletal : Apperance: Normal Neurologic: Alert, donkey ride operator II-XII nml as Tested, No Motor Deficits, Normal Affect, Normal Mood, No Sensory Deficits Cerebellar Function: Normal Reflexes: Normal Skin: Dry, Normal Color, Warm Lymphatic: No Adenopathy Was a procedure done? Was a procedure done?: No EKG EKG : Pulse Rate (adult): 70 Cardiac Rhythm: NSR Hypertrophy: LVH Differential Dx Considerations may include: Dehydration, Electrolyte imbalance, anemia, Influenza X-Ray, Labs, Meds, VS Vital Signs Date Time Temp Pulse Resp B/P (MAP) Pulse Ox O2 Delivery O2 Flow Rate FiO2 12/20/24 11:48 70 12/20/24 11:33 98.5 76 17 148/70 (96) 98 98.5 Lab Test 12/20/24 12:01 12/20/24 11:25 12/20/24 11:12 Range/Units White Blood Count 4.8 4.4-10.8 10^3/uL Red Blood Count 4.15 L 4.5-5.90 10^6/uL Hemoglobin 10.2 L 13.5-17.5 g/dL Hematocrit 31.5 L 41.0-53.0 % Mean Corpuscular Volume 76.1 L 80.0-100.0 fL Mean Corpuscular Hemoglobin 24.7 L 28.0-32.0 pg Mean Corpuscular Hemoglobin Concent 32.5 32.0-36.0 g/dL Red Cell Distribution Width 20.6 H 11.8-14.3 % Platelet Count 320 140-450 10^3/uL Mean Platelet Volume 7.5 6.9-10.8 fL Neutrophils (%) (Auto) 44.9 37.0-80.0 % Lymphocytes (%) (Auto) 37.2 10.0-50.0 % Monocytes (%) (Auto) 13.4 H 0.0-12.0 % Eosinophils (%) (Auto) 4.3 0.0-7.0 % Basophils (%) (Auto) 0.2 0.0-2.0 % Neutrophils # (Auto) 2.2 1.6-8.6 10 ^3/uL Lymphocytes # (Auto) 1.8 0.4-5.4 10 ^3/uL Monocytes # (Auto) 0.6 0-1.3 10 ^3/uL Eosinophils # (Auto) 0.2 0-0.8 10 ^3/uL Basophils # (Auto) 0 0-0.2 10 ^3/uL Nucleated Red Blood Cells 0.1 % Sodium Level 141 136-145 mmol/L Potassium Level 4.5 3.5-5.1 mmol/L Chloride Level 108 H 98-107 mmol/L Carbon Dioxide Level 25 20-31 mmol/L Anion Gap 8 5-15 Blood Urea Nitrogen 25 H 9-23 mg/dL Creatinine 1.78 H 0.700-1.30 mg/dL Glomerular Filtration Rate Calc 37 >90 mL/min BUN/Creatinine Ratio 14.0 10.0-20.0 Serum Glucose 88 74-106 mg/dL Calcium Level 9.8 8.7-10.4 mg/dL Urine Color Light-yellow Yellow Urine Clarity Clear Clear Urine pH 5.5 5.0-9.0 Urine Specific [place] 1.020 1.001-1.035 Urine Protein 1+ H Negative Urine Ketones Negative Negative Urine Blood Negative Negative /uL Urine Nitrite Negative Negative Urine Bilirubin Negative Negative Urine Urobilinogen Normal Negative mg/dL Urine Leukocyte Esterase Negative Negative /uL Urine RBC 2 0 - 3 /hpf Urine Microscopic WBC 1 0-3 /HPF Urine Squamous Epithelial Cells None seen <5 /hpf Urine Bacteria None seen None Seen /hpf Urine Mucus Few None Seen Urine Glucose Normal Normal mg/dL POC Glucose 93 70-106 mg/dl IV Hep-Lock was established The urine test is negative The chemistry panel shows a BUN of 25 and a creatinine of 1.78 The potassium is within normal range. The patient is anemic with a hemoglobin of 10.2 and hematocrit of 31.5 The rest of the CBC is within normal limits At this time the patient's hemoglobin and it is not at a place where he needs to be transfused The patient is being discharged and will follow up with the primary care doctor The patient will return to the emergency department's condition worsens Time of 1ST Reevaluation: 11:39 Reevaluation 1ST: Unchanged Patient Education/Counseling: Diagnosis, Treatment, Prognosis, Need For Follow Up Family Education/Counseling: No Family Present SEPSIS Sepsis Screen Physician Orders Heplock Iv (12/20/24 11:25) Wheel Adjuster (12/20/24 11:25) Blood Pressure (12/20/24 11:25) Pulse Oximetry (12/20/24 11:25) Type And Screen (12/20/24 11:25) Vital Signs Date Time Temp Pulse Resp B/P (MAP) Pulse Ox O2 Delivery O2 Flow Rate FiO2 12/20/24 11:48 70 12/20/24 11:33 98.5 76 17 148/70 (96) 98 98.5 Laboratory Tests Test 12/20/24 12:01 White Blood Count 4.8 10^3/uL (4.4-10.8) Departure 1 Departure Time of Disposition: 12:42 Impression: Primary Impression: Generalized weakness Additional Impression: Symptomatic anemia Disposition: 01 HOME / SELF CARE / HOMELESS Condition: Fair Discharged With: Self Critical Care Note Critical Care Time?: No Stability Stability form required: No I personally scribed for ANISA AGEE MD ([email or web address]) on 12/20/24 at 11:39. Electronically submitted by Chante Prater ([facility]). I personally scribed for ANISA AGEE MD ([email or web address]) on 12/20/24 at 11:48. Electronically submitted by Chante Prater ([facility]). ANISA AGEE MD Dec 20, 2024 11:39
[2024-12-20 12:19] LABS: Hemoglobin 10.2 g/dL (13.5-17.5)
[2024-12-20 12:21] LABS: Hematocrit 31.5 % (41.0-53.0); Mean Corpuscular Hemoglobin 24.7 pg (28.0-32.0); Mean Corpuscular Volume 76.1 fL (80.0-100.0); Nucleated Red Blood Cells % 0.1 %
[2024-12-20 12:26] LABS: Potassium 4.5 mmol/L (3.5-5.1); Sodium 141 mmol/L (136-145)
[2024-12-20 12:27] LABS: Urine Protein, UAD 1+ (Negative)
[2024-12-20 12:27] LABS: Anion Gap 8 (5-15); Carbon Dioxide 25 mmol/L (20-31)
[2024-12-20 12:28] LABS: Calcium 9.8 mg/dL (8.7-10.4)
[2024-12-20 12:31] LABS: Chloride 108 mmol/L (98-107)
[2024-12-20 12:33] LABS: BUN/Creatinine Ratio 14.0 (10.0-20.0); Glucose 88 mg/dL (74-106)
[2024-12-20 12:34] LABS: Blood Urea Nitrogen 25 mg/dL (9-23)
[2024-12-20 13:08] VITALS: BP 162/55; PULSE 83; RESP 20; TEMP 98.3; O2SAT 99
--- NOTE | 2024-12-23 12:04 | ECG ---
[facility] Test Date: 2024-12-20 Test Time: 11:17:44 Pat Name: MARY HEREDIA Department: ER Room: Gender: M Agent: [place] : [id number] Requested By: ANISA AGEE Order Number: [id number] Reading MD: Yoel Meehan Measurements Intervals [place] Rate: 70 P: 26 NM: 186 QRS: -14 QRSD: 87 T: -1 QT: 403 QTc: 435 Interpretive Statements Sinus rhythm Left ventricular hypertrophy Electronically Signed On 12-23-2024 18:57:28 PDT by Yoel Meehan Please click the below link to view image of tracing.
== END 2024-12-20 13:09 | disposition home or self-care (01) ==
LOC: ER 10:58
DX: R53.1 Weakness (principal); D64.9 Anemia, unspecified; I12.9 Hypertensive chronic kidney disease with stage 1 through stage 4 chronic kidney disease, or unspecified chronic kidney disease; N18.9 Chronic kidney disease, unspecified; E78.5 Hyperlipidemia, unspecified; Z79.899 Other long term (current) drug therapy
CPT/HCPCS: 36415; 80048; 81001; 82947; 82962; 85025; 86850; 86900; 86901; 93005

== ENCOUNTER → 2025-01-12 | Outpatient (CLI) | payer OTHER ==
[2025-01-12 12:45] LABS: Blood Urea Nitrogen 20.0 mg/dL (9-23)
== END | disposition home or self-care (01) ==
LOC: LAB 11:18
PROVIDERS: ATTEND Internal Medicine
DX: Z01.812 Encounter for preprocedural laboratory examination (principal)
CPT/HCPCS: 36415; 82565; 84520

== ENCOUNTER 2025-01-18 09:55 | Outpatient (CLI) | payer OTHER | END 2025-01-18 17:00 | disposition home or self-care (01) | LOC: Rad HDHVI 09:55 | PROVIDERS: ATTEND Internal Medicine Cardiovascular Disease | DX: I10 Essential (primary) hypertension (principal) | CPT/HCPCS: 93306 ==

== ENCOUNTER 2025-01-19 08:15 | Outpatient (CLI) | payer OTHER ==
[~2025-01-19] VITALS: Ht 175.3 cm; Wt 90.7 kg
== END 2025-01-19 17:00 | disposition home or self-care (01) ==
LOC: Rad HDHVI 08:15
PROVIDERS: ATTEND Internal Medicine Cardiovascular Disease
DX: I49.3 Ventricular premature depolarization (principal); R00.0 Tachycardia, unspecified; R00.1 Bradycardia, unspecified; Z13.6 Encounter for screening for cardiovascular disorders; I10 Essential (primary) hypertension; E78.00 Pure hypercholesterolemia, unspecified
CPT/HCPCS: 78452; 93017; A9500; 96374

== ENCOUNTER 2025-02-15 11:47 | Outpatient (CLI) | payer OTHER ==
[2025-02-15 12:14] LABS: Urine Protein, UAD 1+ (Negative)
[2025-02-15 12:24] LABS: Iron 103.0 ug/dL (65-175)
[2025-02-15 12:27] LABS: Prostate Specific Antigen 1.06 ng/mL (0.0-4.0); Total Iron Binding Capacity 313.0 ug/dL (250-425)
[2025-02-15 12:29] LABS: Alanine Aminotransferase 20 U/L (7-40); Albumin 4.4 g/dL (3.2-4.8); Alkaline Phosphatase 65 U/L (46-116); Anion Gap 11 (5-15); BUN/Creatinine Ratio 11.8 (10.0-20.0); Blood Urea Nitrogen 20 mg/dL (9-23); Calcium 9.3 mg/dL (8.7-10.4); Carbon Dioxide 24 mmol/L (20-31); Chloride 106 mmol/L (98-107); Cholesterol 152 mg/dL (< 200); Glucose 85 mg/dL (74-106); HDL Cholesterol 47 mg/dL (40-59); Potassium 4.0 mmol/L (3.5-5.1); Sodium 141 mmol/L (136-145); Total Protein 8.1 g/dL (5.7-8.2); Triglycerides 102 mg/dL (< 150)
[2025-02-15 12:30] LABS: Bilirubin, Total 0.4 mg/dL (0.2-1.0)
[2025-02-15 12:32] LABS: Free T4 (Free Thyroxine) 1.24 ng/dL (0.89-1.76)
[2025-02-15 13:15] LABS: Hematocrit 34.8 % (41.0-53.0); Hemoglobin 11.4 g/dL (13.5-17.5); Mean Corpuscular Hemoglobin 26.4 pg (28.0-32.0); Mean Corpuscular Volume 80.6 fL (80.0-100.0); Nucleated Red Blood Cells % 0.1 %
== END 2025-02-15 17:00 | disposition home or self-care (01) ==
LOC: LAB 11:47
PROVIDERS: ATTEND Internal Medicine
DX: I12.9 Hypertensive chronic kidney disease with stage 1 through stage 4 chronic kidney disease, or unspecified chronic kidney disease (principal); N18.31 Chronic kidney disease, stage 3a; D50.0 Iron deficiency anemia secondary to blood loss (chronic); D63.1 Anemia in chronic kidney disease; Z79.899 Other long term (current) drug therapy
CPT/HCPCS: 36415; 80053; 80061; 81001; 82607; 83540; 83550; 84153; 84439; 84443; 85025; 85652

== ENCOUNTER 2025-04-11 10:04 | Day surgery (SDC) | payer OTHER ==
[2025-04-06 11:28] LABS: Hematocrit 42.7 % (41.0-53.0); Hemoglobin 13.7 g/dL (13.5-17.5); Mean Corpuscular Hemoglobin 27.4 pg (28.0-32.0); Mean Corpuscular Volume 85.5 fL (80.0-100.0); Nucleated Red Blood Cells % 0.0 %
[2025-04-06 11:48] LABS: INR 0.96 (0.9-1.15); Partial Thromboplastin Time 23.0 SEC (24.5-34.5); Prothrombin Time 10.2 sec (9.3-11.8)
[2025-04-06 12:02] LABS: Urine Protein, UAD 2+ (Negative)
[2025-04-06 12:23] LABS: Alanine Aminotransferase 19 U/L (7-40); Alkaline Phosphatase 70 U/L (46-116); Anion Gap 10 (5-15); Calcium 9.4 mg/dL (8.7-10.4); Carbon Dioxide 23 mmol/L (20-31); Potassium 3.9 mmol/L (3.5-5.1); Sodium 140 mmol/L (136-145)
[2025-04-06 12:24] LABS: Blood Urea Nitrogen 12 mg/dL (9-23); Glucose 83 mg/dL (74-106)
[2025-04-06 12:25] LABS: Albumin 4.7 g/dL (3.2-4.8)
[2025-04-06 12:26] LABS: Bilirubin, Total 0.4 mg/dL (0.2-1.0)
[2025-04-06 12:27] LABS: BUN/Creatinine Ratio 8.6 (10.0-20.0)
[2025-04-06 12:49] LABS: Chloride 107 mmol/L (98-107); Total Protein 8.4 g/dL (5.7-8.2)
[~2025-04-11] VITALS: Ht 175.3 cm; Wt 90.7 kg
[~2025-04-11 10:04] MED LIST changes: +FER325T PO; -SODI650T PO
[2025-04-11] MEDS ORDERED: PROPOFOL 10 MG/ML 20 ML IV ONE (10:20)
[2025-04-11 12:09] VITALS: PULSE 67; RESP 16; TEMP 97.8; O2SAT 97
[2025-04-11] MEDS ORDERED: ONDANSETRON HCL 4 MG/2 ML VIAL IV PRN (12:15)
--- NOTE | 2025-04-11 12:23 | DVHOP2 ---
Operative Report DATE OF OPERATION: 04/11/25 PROCEDURE: Colonoscopy with hot snare polypectomy. PREOPERATIVE INDICATION: The patient is a 84 -year-old male undergoing colonoscopy for surveillance with personal history of colon polyps and history of anemia POSTOPERATIVE DIAGNOSES: 1. 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 There were two less than 5 mm benign-appearing ascending colon polyps that were seen and removed by cold biopsy forceps 3. There was a 1.5 cm mid transverse colon polyp that was seen and removed by hot snare polypectomy and an adjacent smaller polyp was removed by cold biopsy forceps 4. There were two less than 5 mm benign-appearing sigmoid polyps were seen and removed completely via cold biopsy forceps 5. One to 2+ slightly engorged internal hemorrhoids with hypertrophied anal papillae otherwise normal examination up to the cecum and terminal ileum PROCEDURE PERFORMED BY: Marya Palacios M.D. SCOPE: Olympus videocolonoscope. ASA CLASS: 3 PREOPERATIVE MEDICATIONS: Mac sedation, Dr. Miguel PROCEDURE IN DETAIL: After obtaining an informed consent, the patient was placed on left lateral decubitus position. He was then sedated with the above medications. A rectal examination was performed that was normal. The colonoscope was then passed through the anus into the rectosigmoid and through the descending, transverse, and ascending colon up to the cecum with visualization of the appendiceal orifice, base of the cecum and the ileocecal valve. The colonoscope was then withdrawn. The distal 5-10 cm of the terminal ileum were normal No masses or colitis was noted. Patient had two small ascending colon polyps were removed by cold biopsy forceps He had a medium-sized transverse colon polyp that was seen and removed by hot snare polypectomy and another smaller one removed by cold biopsy forceps There were two less than 5 mm benign-appearing sigmoid polyps were removed by cold biopsy forceps he had moderate scattered diverticular disease most prominent in the sigmoid On retroflexion he had one to 2+ slightly engorged internal hemorrhoids with a hypertrophied anal papilla The patient tolerated the procedure well without difficulty. WITHDRAWAL TIME: 11 minutes QUALITY OF THE PREP: Udall Bowel Prep score: 8. COMPLICATIONS : None SPECIMENS: Ascending colon polyps x2 Transverse colon polyps x2 Sigmoid polyps x2 DISPOSITION: Stable D/C to home PLAN: 1. Repeat colonoscopy base on biopsy result likely in three years 2. Resume GI soft diet advance as tolerated 3. Increase fluid and fiber intake 4. Outpatient follow up with [facility] in 4-6 weeks to review results and discuss further management MARYA PALACIOS MD Apr 11, 2025 12:23
[2025-04-11 12:54] VITALS: BP 167/73; PULSE 68; RESP 13
== END 2025-04-11 13:09 | disposition home or self-care (01) ==
LOC: GI 10:04
PROVIDERS: ATTEND Internal Medicine Gastroenterology
DX: D50.9 Iron deficiency anemia, unspecified (principal); D12.5 Benign neoplasm of sigmoid colon; D12.3 Benign neoplasm of transverse colon; K63.5 Polyp of colon; K57.30 Diverticulosis of large intestine without perforation or abscess without bleeding; K64.8 Other hemorrhoids; I10 Essential (primary) hypertension; E78.00 Pure hypercholesterolemia, unspecified; Z79.899 Other long term (current) drug therapy; Z86.0100 Personal history of colon polyps, unspecified; Z98.890 Other specified postprocedural states; Z82.49 Family history of ischemic heart disease and other diseases of the circulatory system; Z83.3 Family history of diabetes mellitus
CPT/HCPCS: 36415; 45380; 45385; 80053; 81001; 85025; 85610; 85730; 88305; J2704; J7030

== ENCOUNTER 2025-04-25 11:03 | Outpatient (CLI) | payer OTHER ==
[2025-04-26 10:07] LABS: Immunoglobulin A 305 mg/dL (61-437); Immunoglobulin G, Serum 1634 mg/dL (603-1613); Immunoglobulin M 64 mg/dL (15-143)
== END 2025-04-25 17:00 | disposition home or self-care (01) ==
LOC: LAB 11:03
PROVIDERS: ATTEND Internal Medicine
DX: I10 Essential (primary) hypertension (principal); R89.9 Unspecified abnormal finding in specimens from other organs, systems and tissues
CPT/HCPCS: 82784; 84155; 84156; 84165; 84166; 86334

== ENCOUNTER 2025-05-06 11:27 | Outpatient (CLI) | payer OTHER ==
[2025-05-06 11:53] LABS: Hematocrit 40.3 % (41.0-53.0); Hemoglobin 13.7 g/dL (13.5-17.5); Mean Corpuscular Hemoglobin 29.1 pg (28.0-32.0); Mean Corpuscular Volume 85.6 fL (80.0-100.0); Nucleated Red Blood Cells % 0.0 %
[2025-05-06 13:58] LABS: Alanine Aminotransferase 24 U/L (7-40); Albumin 4.7 g/dL (3.2-4.8); Alkaline Phosphatase 94 U/L (46-116); Anion Gap 10 (5-15); BUN/Creatinine Ratio 12.2 (10.0-20.0); Bilirubin, Total 0.4 mg/dL (0.2-1.0); Blood Urea Nitrogen 18 mg/dL (9-23); Calcium 10.1 mg/dL (8.7-10.4); Carbon Dioxide 26 mmol/L (20-31); Chloride 107 mmol/L (98-107); Glucose 80 mg/dL (74-106); Potassium 4.2 mmol/L (3.5-5.1); Sodium 143 mmol/L (136-145); Total Protein 8.6 g/dL (5.7-8.2)
[2025-05-07] MEDS ORDERED: FERR1TAB31 PO (17:10)
== END 2025-05-06 17:00 | disposition home or self-care (01) ==
LOC: LAB 11:27
PROVIDERS: ATTEND Internal Medicine
DX: R07.81 Pleurodynia (principal)
CPT/HCPCS: 36415; 80053; 85025; 85379; 85652

== ENCOUNTER 2025-05-07 08:01 | Inpatient (IN) | payer OTHER ==
[~2025-05-07] VITALS: Ht 175.3 cm; Wt 86.5 kg
--- NOTE | 2025-05-07 08:15 | ECG ---
[facility] Test Date: 2025-05-07 Test Time: 08:13:55 Pat Name: MARY HEREDIA Department: ED Room: Gender: M Medical Office Receptionist Assistant: GP : [id number] Requested By: ANAMIKA CONTRERAS Order Number: [id number] Reading MD: Yoel Meehan Measurements Intervals [place] Rate: 80 P: 64 AR: 187 QRS: -13 QRSD: 97 T: 52 QT: 398 QTc: 460 Interpretive Statements Sinus rhythm Ventricular premature complex Borderline T wave abnormalities Baseline wander in lead(s) II,V3,V4 Electronically Signed On 05-07-2025 10:37:59 PST by Yoel Meehan Please click the below link to view image of tracing.
--- NOTE | 2025-05-07 08:34 | ED.PDOC ---
GI ASSESSMENT HPI Comments This is a 84 year-old male with HTN, CKF, and Anemia, who presents to the ED with a chief complaint of RLQ abdominal pain for X1 week. Patient reports having a recent colonoscopy done, where polyps were discovered. Patient reports having a polypectomy done on April 11. Patient has no further complaints or modifying factors at this time, and otherwise denies N/V/D, weakness, dizziness, dysuria, fever, or chills. Chief Complaint: Abdominal Pain Time Seen by MD: 08:40 Primary Care Provider: PATRICIA Comer Notes: Medications, Allergies Allergies: Coded Allergies: NO KNOWN ALLERGIES (Unverified , 08/21/21) Home Meds Reported Medications Ferrous Sulfate (FERROUS SULFATE) 325 Mg Tb, 325 MG PO DAILY, TAB 04/06/25 Amlodipine Besylate (Amlodipine Besylate) 10 Mg Tab, 1 TAB PO DAILY for 90 Days, #90 09/29/24 Simvastatin (Simvastatin) 20 Mg Tab, 1 TAB PO DAILY for 90 Days, #90 11/28/10 Information Source: Patient Mode of Arrival: Ambulatory Timing: Weeks Duration: Since onset Severity: Moderate Pain Location: RLQ Associated sign and symptoms: Abdominal Pain Past Medical History PAST MEDICAL HISTORY: Anemia, CKF, High Lipids, HTN Surgical History (Other): polypectomy Family History Family History: Reviewed,noncontributory to illness, Family hx of HTN Social History Smoker: Non-Smoker Alcohol: Denies ETOH Use Drugs: Denies Drug Use Lives In: Home Constitutional: denies: chills, diaphoresis, fatigue, fever, malaise, sweats, weakness, others EENTM: denies: blurred vision, double vision, ear bleeding, ear discharge, ear drainage, ear pain, ear ringing, eye pain, eye redness, hearing loss, mouth pain, mouth swelling, nasal discharge, nose bleeding, nose congestion, nose pain, photophobia, tearing, throat pain, throat swelling, voice changes, others Respiratory: denies: cough, hemoptysis, orthopnea, SOB at rest, shortness of breath, SOB with excertion, stridor, wheezing, others Cardiovascular: denies: chest pain, dizzy spells, diaphoresis, Dyspnea on exertion, edema, irregular heart beat, left arm pain, lightheadedness, palpitations, PND, syncope, others Gastrointestinal: reports: abdominal pain; denies: abdomen distended, blood streaked bowels, constipated, diarrhea, dysphagia, difficulty swallowing, hematemesis, melena, nausea, poor appetite, poor fluid intake, rectal bleeding, rectal pain, vomiting, others Genitourinary: denies: burning, dysuria, flank pain, frequency, hematuria, incontinence, penile discharge, penile sore, pain, testicle pain, testicle swelling, urgency, others Neurological: denies: dizziness, fainting, headache, left sided numbness, left sided weakness, numbness, paresthesia, pre-existing deficit, right sided numbness, right sided weakness, seizure, speech problems, tingling, tremors, weakness, others Musculoskeletal: denies: back pain, gout, joint pain, joint swelling, muscle pain, muscle stiffness, neck pain, others Integumetry: denies: bruises, change in color, change in hair/nails, dryness, laceration, lesions, lumps, rash, wounds, others Allergic/Immunocompromised: denies: Difficulty Healing, Frequent Infections, Hives, Itching, others Hematologic/Lymphatic: denies: anemia, blood clots, easy bleeding, easy bruising, swollen glands, others Endocrine: denies: excessive hunger, excessive sweating, excessive thirst, excessive urination, flushing, intolerance to cold, intolerance to heat, unexplained weight gain, unexplained weight loss, others Psychiatric: denies: anxiety, bipolar disorder, depression, hopeless, panic disorder, schizophrenia, sleepless, suicidal, others All Other Systems: Reviewed and Negative Physical Exam General Appearance: Mild Distress, Normal HEENT: Normal ENT Inspection Neck: Normal, Normal Inspection Respiratory: No Respiratory Distress, Normal Breath Sounds Cardiovascular: No Edema, Regular Rate/Rhythm Breast Exam: Deferred Gastrointestinal: Normal Bowel Sounds, Soft, Tenderness Genitalia: Deferred Pelvic: Deferred Rectal: Deferred Extremities: Normal inspection, Normal range of motion, Non-tender Musculoskeletal : Apperance: Normal Neurologic: Alert, No Motor Deficits, Normal Mood, No Sensory Deficits Cerebellar Function: Normal Reflexes: Normal Skin: Dry, Normal Color, Warm Lymphatic: No Adenopathy EKG EKG : Pulse Rate (adult): 80 [place]: Normal Cardiac Rhythm: NSR Comments Sinus rhythm Ventricular premature complex Borderline T wave abnormalities Baseline wander in lead(s) II,V3,V4 Was a procedure done? Was a procedure done?: No GI differential Dx Differential Diagnosis: Constipation, Gastritis/PUD, Gastroenteritis, Inflammatory BD, Dehydration, Food Poisoning, Bacterial, Parasitic, Viral X-Ray, Labs, Meds, VS Vital Signs Date Time Temp Pulse Resp B/P (MAP) Pulse Ox O2 Delivery O2 Flow Rate FiO2 05/07/25 10:07 82 17 159/79 05/07/25 09:45 82 18 97 Room Air 05/07/25 09:45 98.5 82 18 159/79 (105) 97 98.5 05/07/25 08:34 80 05/07/25 08:13 80 05/07/25 08:04 98.1 91 13 171/95 97 98.1 Lab Test 05/07/25 09:30 Range/Units White Blood Count 5.5 4.4-10.8 10^3/uL Red Blood Count 4.85 4.5-5.90 10^6/uL Hemoglobin 14.1 13.5-17.5 g/dL Hematocrit 41.8 41.0-53.0 % Mean Corpuscular Volume 86.0 80.0-100.0 fL Mean Corpuscular Hemoglobin 29.1 28.0-32.0 pg Mean Corpuscular Hemoglobin Concent 33.8 32.0-36.0 g/dL Red Cell Distribution Width 15.5 H 11.8-14.3 % Platelet Count 366 140-450 10^3/uL Mean Platelet Volume 7.4 6.9-10.8 fL Neutrophils (%) (Auto) 63.0 37.0-80.0 % Lymphocytes (%) (Auto) 24.6 10.0-50.0 % Monocytes (%) (Auto) 9.1 0.0-12.0 % Eosinophils (%) (Auto) 3.0 0.0-7.0 % Basophils (%) (Auto) 0.3 0.0-2.0 % Neutrophils # (Auto) 3.5 1.6-8.6 10 ^3/uL Lymphocytes # (Auto) 1.4 0.4-5.4 10 ^3/uL Monocytes # (Auto) 0.5 0-1.3 10 ^3/uL Eosinophils # (Auto) 0.2 0-0.8 10 ^3/uL Basophils # (Auto) 0 0-0.2 10 ^3/uL Nucleated Red Blood Cells 0.1 % Sodium Level 142 136-145 mmol/L Potassium Level 4.0 3.5-5.1 mmol/L Chloride Level 106 98-107 mmol/L Carbon Dioxide Level 25 20-31 mmol/L Anion Gap 11 5-15 Blood Urea Nitrogen 17 9-23 mg/dL Creatinine 1.51 H 0.700-1.30 mg/dL Glomerular Filtration Rate Calc 45 >90 mL/min BUN/Creatinine Ratio 11.3 10.0-20.0 Serum Glucose 99 74-106 mg/dL Calcium Level 10.1 8.7-10.4 mg/dL Total Bilirubin 0.6 0.2-1.0 mg/dL Aspartate Amino Transferase (AST) 31 13-40 U/L Alanine Aminotransferase (ALT) 24 7-40 U/L Alkaline Phosphatase 98 46-116 U/L Total Protein 8.9 H 5.7-8.2 g/dL Albumin 4.8 3.2-4.8 g/dL Current Medications Medications (Trade) Dose Ordered Sig/Manjit Route Start Time Stop Time Status Last Admin Sodium Chloride 1,000 ml @ 1,000 mls/hr Q1H ONCE IV 05/07/25 09:30 05/07/25 10:29 DC 05/07/25 10:04 Morphine Sulfate 4 mg ONCE ONCE IV 05/07/25 09:30 05/07/25 09:31 DC 05/07/25 10:07 Ondansetron HCl (Zofran) 4 mg ONCE ONCE IV 05/07/25 09:30 05/07/25 09:31 DC 05/07/25 10:07 Time of 1ST Reevaluation: 09:19 Reevaluation 1ST: Unchanged Patient Education/Counseling: Diagnosis, Treatment Family Education/Counseling: No Family Present SEPSIS Sepsis Screen Date sepsis recognized/suspect: May 07, 2025 Time Sepsis recognized/suspect: 08 Recent Procedure: No On Antibiotic Therapy: No Respiratory Rate >20: No Heart Rate >90: Yes Temp<36 C (96.8 F) or >38.3 C: No SBP <90 or MAP <65 mmHG: No New Acute Mental Status Change: No Is the patient on CPAP, BIPAP,: No Physician Orders Electrocardigram (05/07/25 08:09) Ct Ab Pel With Iv Con Only (05/07/25 09:21) Vital Signs Date Time Temp Pulse Resp B/P (MAP) Pulse Ox O2 Delivery O2 Flow Rate FiO2 05/07/25 10:07 82 17 159/79 05/07/25 09:45 82 18 97 Room Air 05/07/25 09:45 98.5 82 18 159/79 (105) 97 98.5 05/07/25 08:34 80 05/07/25 08:13 80 05/07/25 08:04 98.1 91 13 171/95 97 98.1 Laboratory Tests Test 05/07/25 09:30 White Blood Count 5.5 10^3/uL (4.4-10.8) Medications Medications Dose Ordered Sig/Manjit Route Start Time Stop Time Status Last Admin Dose Admin Morphine Sulfate 4 mg ONCE ONCE IV 05/07/25 09:30 05/07/25 09:31 DC 05/07/25 10:07 Ondansetron HCl 4 mg ONCE ONCE IV 05/07/25 09:30 05/07/25 09:31 DC 05/07/25 10:07 Sodium Chloride 1,000 ml @ 1,000 mls/hr Q1H ONCE IV 05/07/25 09:30 05/07/25 10:29 DC 05/07/25 10:04 Departure 1 Departure Time of Disposition: 11:45 (Patient presented with abdominal pain that was concerning for possible appendicits, gastritis, cholecystitis, colitis, gastroenteritis, sbo, or orther possible surgical emergency. Data: 1. I ordered and reviewed the result of at least 3 labs including a CBC, BMP, and Urinalysis. 2. I independently interpreted the following tests: CT Abdomen and Pelvis is concerning for polycystic kidney disease .Risk:This patient has a high risk of morbidity due to further diagnostic testing or treatment and may suffer from an acute abdominal process disorder. Workup reveals polycystic kidney disease and intractable abdominal pain and patient should be admitted for further workup. and possible expert consultation. ) Impression: Primary Impression: Intractable abdominal pain Additional Impression: Polycystic kidney disease Disposition: ADMITTED INPATIENT Admit to: Med Surg Condition: Guarded Critical Care Note Critical Care Time?: Yes Critical care comment: Intractable abdominal pain Authorized and Performed by: Anamika Contreras MD Total critical care time: Approximately 37 minutes Due to a high probability of clinically significant, life threatening deterioration, the patient required my highest level of preparedness to intervene emergently and I personally spent this critical care time directly and personally managing the patient. This critical care time included obtaining a history; examining the patient; pulse oximetry; ordering and review of studies; arranging urgent treatment with development of a management plan; evaluation of patient's response to treatment; frequent reassessment; and, discussions with other providers. This critical care time was performed to assess and manage the high probability of imminent, life-threatening deterioration that could result in multi-organ failure. It was exclusive of separately billable procedures and treating other patients and teaching time. Please see my other sections and the rest of the note for further information on patient assessment and treatment. Stability Stability form required: No Heart Score Heart Score: Heart Score Response (Comments) Value History Slightly Suspicious 0 EKG Normal 0 Age >65 2 Risk Factors No known risk factors 0 Troponin N/A 0 Total 2 I personally scribed for ANAMIKA CONTRERAS MD ([email or web address]) on 05/07/25 at 08:34. Electronically submitted by Araseli Lehman ([employer]). I personally scribed for ANAMIKA CONTRERAS MD ([email or web address]) on 05/07/25 at 09:40. Electronically submitted by Araseli Lehman ([employer]). ANAMIKA CONTRERAS MD May 07, 2025 08:34
[2025-05-07 09:54] LABS: Hematocrit 41.8 % (41.0-53.0); Hemoglobin 14.1 g/dL (13.5-17.5); Mean Corpuscular Hemoglobin 29.1 pg (28.0-32.0); Mean Corpuscular Volume 86.0 fL (80.0-100.0); Nucleated Red Blood Cells % 0.1 %
[2025-05-07] MEDS: SODIUM CHLORIDE 0.9% 1,000 ML IV ONE (10:04)
[2025-05-07] MEDS: MORPHINE SULFATE 4 MG/ML SYR/VIAL IV ONE (10:07)
[2025-05-07] MEDS: ONDANSETRON HCL 4 MG/2 ML VIAL IV ONE (10:07)
[2025-05-07 10:13] LABS: Alanine Aminotransferase 24 U/L (7-40); Albumin 4.8 g/dL (3.2-4.8); Alkaline Phosphatase 98 U/L (46-116); Anion Gap 11 (5-15); BUN/Creatinine Ratio 11.3 (10.0-20.0); Blood Urea Nitrogen 17 mg/dL (9-23); Calcium 10.1 mg/dL (8.7-10.4); Carbon Dioxide 25 mmol/L (20-31); Chloride 106 mmol/L (98-107); Glucose 99 mg/dL (74-106); Potassium 4.0 mmol/L (3.5-5.1); Sodium 142 mmol/L (136-145)
[2025-05-07 10:14] LABS: Bilirubin, Total 0.6 mg/dL (0.2-1.0)
[2025-05-07 10:30] LABS: Total Protein 8.9 g/dL (5.7-8.2)
--- NOTE | 2025-05-07 10:52 | DVH ---
CT abdomen and pelvis with contrast INDICATION: rlq pain Comparison MR abdomen done 01/26/2025 and ultrasound done 05/06/2025 TECHNIQUE: Following IV administration of 100 cc Omnipaque 300 Serial axial images were performed through the abdomen and pelvis and then reformatted in the sagittal and coronal plane. All CT scans at this medical facility are performed using dose modulation techniques as appropriate to a performed exam including the following: Automated exposure control was utilized; adjustment of the MA and/or KvP according to patient size; and use of iterative reconstruction technique. FINDINGS: Multiple hepatic cysts are present with the largest high in the right lobe measuring nearly 9 cm in diameter. Spleen unremarkable. Multiple bilateral renal cysts are present measuring up to 7.2 cm in the right kidney no stones or hydronephrosis. No masses or enlargement of the adrenal glands or pancreas. No biliary dilatation. No gallstones. No distention of bowel loops to suggest mechanical obstruction of bowel. The appendix is normal in appearance. No free fluid. Within the pelvis, bladder is smooth walled without stones. No abnormal masses or fluid collections. IMPRESSION: 1. Polycystic kidney and liver disease Computed Tomographic Radiation Dosimetry Report: Total CTDI vol = 11.2 mGy Total DLP = 579 mGy-cm Low dose protocols were performed.
[2025-05-07] MEDS ORDERED: DOCUSATE SOD 100 MG CAP PO PRN (13:00)
[2025-05-07] MEDS: SODIUM CHLORIDE 0.9% 1,000 ML IV SCH (13:00)
[2025-05-07] MEDS ORDERED: NITROGLYCERIN 0.4 MG SL TAB SL PRN (13:00)
[2025-05-07] MEDS ORDERED: MORPHINE SULFATE INJ 2 MG/ml SYRG IV PRN (13:00)
[2025-05-07] MEDS ORDERED: ONDANSETRON HCL 4 MG/2 ML VIAL IV PRN (13:00)
--- NOTE | 2025-05-07 13:16 | DVHHPRES ---
History of Present Illness Resident Creating Document: TULIO BOND RESIDENT History of Present Illness Mr. Pacheco, a 84-year-old male with a history of hypertension, chronic kidney failure, and anemia presents to the ED with right lower quadrant abdominal pain for one week. He reports a recent colonoscopy with polypectomy performed on April 11 after polyps were discovered. Pain is rated 5/10, worsens with inspiration, and has persisted without relief. He denies nausea, vomiting, diarrhea, weakness, dizziness, dysuria, fever, or chills. On arrival, patient is alert and oriented 4, ambulatory with steady gait, respirations even and unlabored on room air, and blood pressure elevated (missed morning ant ihypertensive dose). No signs of distress noted. 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 Family history: Unknown for PCKD, Reviewed,noncontributory to illness, Family hx of HTN . Social history: Positive for smoking and Occasional alcohol previously. Currently lives at home with the . Independent for ADLs. Patient is a non- smoker, denies alcohol and drug use, and lives at home with . Review of Systems Constitutional: Yes: Malaise; No: Fever, Chills, Sweats, Weakness, Other Eyes: No: Pain, Vision change, Conjunctivae inflammation, Eyelid inflammation, Other, Redness ENT: No: Ear pain, Ear discharge, Nose pain, Nose discharge, Nose congestion, Mouth pain, Mouth swelling, Throat pain, Throat swelling, Other Respiratory: No: Cough, Dry, Shortness of breath, SOB with excertion, Wheezing, Hemoptysis, Pleuritic Pain, Sputum, Wheezing, Other Cardiovascular: No: Chest Pain, Palpitations, Orthopnea, Paroxysmal Noc. Dyspnea, Edema, Lt Headedness, Other Gastrointestinal: Abdominal Pain; No: Nausea, Vomiting, Diarrhea, Constipation, Melena, Hematochezia, Other Genitourinary: No Dysuria, No Frequency, No Incontinence, No Hematuria, No Retention, No Other Musculoskeletal: No: other, neck pain, shoulder pain, arm pain, back pain, hand pain, leg pain, foot pain Skin: No: Rash, Lesions, Jaundice, Bruising, Other Neurological: No: Weakness, Numbness, Incoordination, Change in speech, Confusion, Seizures, Other Allergies: Coded Allergies: NO KNOWN ALLERGIES (Unverified , 08/21/21) Medications Current Medications Medications Dose Ordered Sig/Manjit Route Start Time Stop Time Status Last Admin Dose Admin Sodium Chloride 1,000 ml @ 60 mls/hr [id number] IV 05/07/25 13:00 UNV Ondansetron HCl 4 mg Q4HP PRN IV 05/07/25 13:00 UNV Docusate Sodium 100 mg BIDPRN PRN PO 05/07/25 13:00 UNV Morphine Sulfate 2 mg Q4HPRN PRN IV 05/07/25 13:00 UNV Nitroglycerin 0.4 mg Q5MINP PRN SL 05/07/25 13:00 UNV Morphine Sulfate 2 mg Q30M PRN IV 05/07/25 13:00 UNV Pantoprazole Sodium 40 mg DAILY IV 05/07/25 13:15 UNV Exam Vital Signs Vital Signs Date Time Temp Pulse Resp B/P (MAP) Pulse Ox O2 Delivery O2 Flow Rate FiO2 05/07/25 10:07 82 17 159/79 05/07/25 09:45 97 Room Air 05/07/25 09:45 98.5 98.5 General Appearance: Alert, Oriented X3, Cooperative, No acute distress, Other (mild pallor b /l scleral ) HEENT: Atraumatic, PERRLA, EOMI, Mucous membr. moist/pink Respiratory: Clear to auscultation, Normal air movement, Other (right lower lobe rales, ) Cardiovascular: Regular rate, Normal S1, Normal S2, No murmurs Abdominal: Normal bowel sounds, Soft, No tenderness, No hepatospenomegaly Extremities: No clubbing, No cyanosis, No edema, Normal pulses, No tenderness/swelling, Other (left index finger healed stump of distal amputation) Skin: No rashes, No breakdown, No significant lesion Neuro: Normal gait, Normal speech, Strength at 5/5 X4 ext, Normal tone, Sensation intact, Cranial nerves 3-12 NL Psych/Mental Status: Mental status NL, Mood NL Labs/Xrays Labs Test 05/07/25 09:30 Range/Units White Blood Count 5.5 4.4-10.8 10^3/uL Red Blood Count 4.85 4.5-5.90 10^6/uL Hemoglobin 14.1 13.5-17.5 g/dL Hematocrit 41.8 41.0-53.0 % Mean Corpuscular Volume 86.0 80.0-100.0 fL Mean Corpuscular Hemoglobin 29.1 28.0-32.0 pg Mean Corpuscular Hemoglobin Concent 33.8 32.0-36.0 g/dL Red Cell Distribution Width 15.5 H 11.8-14.3 % Platelet Count 366 140-450 10^3/uL Mean Platelet Volume 7.4 6.9-10.8 fL Neutrophils (%) (Auto) 63.0 37.0-80.0 % Lymphocytes (%) (Auto) 24.6 10.0-50.0 % Monocytes (%) (Auto) 9.1 0.0-12.0 % Eosinophils (%) (Auto) 3.0 0.0-7.0 % Basophils (%) (Auto) 0.3 0.0-2.0 % Neutrophils # (Auto) 3.5 1.6-8.6 10 ^3/uL Lymphocytes # (Auto) 1.4 0.4-5.4 10 ^3/uL Monocytes # (Auto) 0.5 0-1.3 10 ^3/uL Eosinophils # (Auto) 0.2 0-0.8 10 ^3/uL Basophils # (Auto) 0 0-0.2 10 ^3/uL Nucleated Red Blood Cells 0.1 % Sodium Level 142 136-145 mmol/L Potassium Level 4.0 3.5-5.1 mmol/L Chloride Level 106 98-107 mmol/L Carbon Dioxide Level 25 20-31 mmol/L Anion Gap 11 5-15 Blood Urea Nitrogen 17 9-23 mg/dL Creatinine 1.51 H 0.700-1.30 mg/dL Glomerular Filtration Rate Calc 45 >90 mL/min BUN/Creatinine Ratio 11.3 10.0-20.0 Serum Glucose 99 74-106 mg/dL Calcium Level 10.1 8.7-10.4 mg/dL Total Bilirubin 0.6 0.2-1.0 mg/dL Aspartate Amino Transferase (AST) 31 13-40 U/L Alanine Aminotransferase (ALT) 24 7-40 U/L Alkaline Phosphatase 98 46-116 U/L Total Protein 8.9 H 5.7-8.2 g/dL Albumin 4.8 3.2-4.8 g/dL SEPSIS Sepsis Screen Date sepsis recognized/suspect: May 07, 2025 Time Sepsis recognized/suspect: 803 Recent Procedure: No On Antibiotic Therapy: No Respiratory Rate >20: No Heart Rate >90: Yes Temp<36 C (96.8 F) or >38.3 C: No SBP <90 or MAP <65 mmHG: No New Acute Mental Status Change: No Is the patient on CPAP, BIPAP,: No Physician Orders Electrocardigram (05/07/25 08:09) Ct Ab Pel With Iv Con Only (05/07/25 09:21) Admit (05/07/25 13:00) Allergies (05/07/25 13:00) Code Status (05/07/25 13:00) Sodium Chloride 0.9% (05/07/25 13:00) Ondansetron Hcl (Zofran) (05/07/25 13:00) Docusate Sodium Capsule (Colace Capsule) (05/07/25 13:00) Complete Blood Count (05/08/25 04:00) Comprehensive Metabolic Panel (05/08/25 04:00) Npo (Nothing By Mouth) Diet (05/07/25 Lunch) Condition: Serious (05/07/25 13:00) Bedrest With Bathroom Privileg (05/07/25 13:00) Bedside Commode (05/07/25 13:00) Morphine Sulfate Injection (05/07/25 13:00) Sequential Compression Device (05/07/25 ) Nitroglycerin Sublingual (Ntrostat Subli (05/07/25 13:00) Morphine Sulfate Injection (05/07/25 13:00) Oxygen By Nasal Cannula (05/07/25 13:00) Stat Ekg For Chest Pain (05/07/25 13:00) Notify Md Of Changes From Base (05/07/25 13:00) Client Account Manager For 24 Hours (05/07/25 13:00) Emergency Dysrhythmia Protocol (05/07/25 13:00) Rhythm Strips Once Every Shift (05/07/25 13:00) Lipase (05/07/25 13:12) Lactic Acid W/ Reflex Order (05/07/25 13:12) Pantoprazole (Protonix) (05/07/25 13:15) Vital Signs Date Time Temp Pulse Resp B/P (MAP) Pulse Ox O2 Delivery O2 Flow Rate FiO2 05/07/25 10:07 82 17 159/79 05/07/25 09:45 82 18 97 Room Air 05/07/25 09:45 98.5 82 18 159/79 (105) 97 98.5 05/07/25 08:34 80 05/07/25 08:13 80 05/07/25 08:04 98.1 91 13 171/95 97 98.1 Laboratory Tests Test 05/07/25 09:30 White Blood Count 5.5 10^3/uL (4.4-10.8) Medications Medications Dose Ordered Sig/Manjit Route Start Time Stop Time Status Last Admin Dose Admin Morphine Sulfate 4 mg ONCE ONCE IV 05/07/25 09:30 05/07/25 09:31 DC 05/07/25 10:07 4 MG Ondansetron HCl 4 mg ONCE ONCE IV 05/07/25 09:30 05/07/25 09:31 DC 05/07/25 10:07 4 MG Sodium Chloride 1,000 ml @ 1,000 mls/hr Q1H ONCE IV 05/07/25 09:30 05/07/25 10:29 DC 05/07/25 10:04 1,000 MLS/HR Assessment/Plan Assessment/Plan Assessment and Plan: Present on admission: #Acute abdominal pain: RUQ, limited excursion of the lungs, incentive spirometry, pain control, pain with deep tenderness, but no hepatobiliary disease known except Liver and kidney cysts. 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 #Essential hypertension, uncontrolled: On losartan 50 mg daily, amlodipine 10 mg daily, as needed IV hydralazine for now when patient resumes diet continue medications to keep blood pressure 130/80, continue cardiac diet. Known chronic health conditions managed: #GERD/PUD: Chronic pantoprazole 40 mg b.i.d. previously as given by Dr. Palacios. #Polycystic kidney disease, stable cyst in the kidney and liver , complicated with HTn. family history unknown. #Plasma cell disorder, with hypergammaglobulinemia: status post multiple bone marrow biopsy. Follow up closely with hematooncologist: Ruled out hematologic emergencies including acute infection, marrow failure , DIC, and tumor lysis syndrome. #Likely history of GI bleed, pending follow up with Dr. Palacios outpatient amador: previous workup did not find any particular source. Last colonoscopy 04/11/2025 2 5 mm ascending colon polyps, 1.5 cm transverse colon polyp 2 5 mm sigmoid polyp, outpatient colonoscopy in 3 years, follow up with the biopsy results. #chronic iron-deficiency anemia : On ferrous all 325 daily, hold in-hospital. Denies any constipation or GI bleed noticeable. #multiple scattered cysts in the liver: Known, follow LFT, RUQ ultrasound pending #hepatic steatosis, cirrhosis unlikely: Ultrasound pending, CT ambiguous, hepatic steatosis Noted in CT, Echogenic liver concerning for cirrhosis, check liver functions. Avoid hepatotoxic. #CKD Stage IIIB, baseline creatinine around 1.3. #stable dilatation of abdominal aorta 3.1: interval follow up outpatient amador. Calcified aorta consistent with atherosclerotic disease. hemodynamically stable . #Moderate romano colonic diverticulosis: Avoid constipation, high-fiber diet when resuming diet. #Ruled out functional coronary artery disease, stress test nuclear, negative, 02/28/2025 #Atrophic left testicle with punctate calcifications: Rule out testicular carcinoma/ metastasis: : Denies any denies Urinary symptoms presumably. #Moderate osteoarthritis, with disc degenerative disease #mild to moderate atherosclerotic disease, arterial calcification positive #Previous history of recurrent UTI, epididymitis #known BPH, well-controlled symptoms, not on medications. #Colonoscopy noted engorged internal hemorrhoids: avoid constipation, high-fiber diet continue #Noted osteopenia with osteoporosis: outpatient conservative management to continue. #Dyslipidemia:simvastatin 20 mg daily, can be held. resume at discharge #hypertensive heart disease with concentric LVH EF > 55%, 02/07 PUD prophylaxis: protonix 40mg IV daily DVT prophylaxis: prior history of GI bleed of unknown origin, avoid antiplat elets and anticoagulants/SCD/brisk movement. Barriers to discharge: Medical diagnosis and management in progress. Patient lives with family, . Independent for ADL. PCP: Dr. Sparks Specialist Relevant To Admission: Gastroenterology, has outpatient follow up with Dr. Palacios for follow up of colonoscopy results and polyp biopsy results. NOT consulted. Case discussed with Dr. Avila. Code Status: Full Code. Discussion for goals of care and care plan required total 31 minutes bedside. Admitted to [facility]. Plan discussed with: Patient My Orders Orders - TULIO BOND RESIDENT Procedure Category Date Status Time Admit ADMIT 05/07/25 Transmitted 13:00 Allergies SHAYAN 05/07/25 In Process 13:00 Code Status CODE 05/07/25 Transmitted 13:00 Sodium Chloride 0.9% PHA 05/07/25 Logged 13:00 Ondansetron Hcl PHA 05/07/25 Logged (Zofran) 13:00 Docusate Sodium PHA 05/07/25 Logged Capsule (Colace 13:00 Complete Blood Count LAB 05/08/25 Verified 04:00 Comprehensive LAB 05/08/25 Verified Metabolic Panel 04:00 Npo (Nothing By DIET 05/07/25 Transmitted Mouth) Diet Lunch Condition: Serious SHAYAN 05/07/25 In Process 13:00 Bedrest With Bathroom [facility] 05/07/25 In Process Privileg 13:00 Bedside Commode SHAYAN 05/07/25 In Process 13:00 Morphine Sulfate PHA 05/07/25 Logged Injection 13:00 Sequential SHAYAN 05/07/25 In Process Compression Device Nitroglycerin PHA 05/07/25 Logged Sublingual (Ntrostat 13:00 Morphine Sulfate PHA 05/07/25 Logged Injection 13:00 Oxygen By Nasal RT 05/07/25 Transmitted Cannula 13:00 Stat Ekg For Chest [facility] 05/07/25 In Process Pain 13:00 Notify Of Changes [facility] 05/07/25 In Process From Base 13:00 Client Account Manager For [facility] 05/07/25 In Process 24 Hours 13:00 Emergency Dysrhythmia SHAYAN 05/07/25 In Process Protocol 13:00 Rhythm Strips Once [facility] 05/07/25 In Process Every Shift 13:00 Lipase LAB 05/07/25 Logged 13:12 Lactic Acid W/ Reflex LAB 05/07/25 Logged Order 13:12 Pantoprazole PHA 05/07/25 Logged (Protonix) 13:15 Date of Service: May 07, 2025 Billing Provider: CHARLIE AVILA MD Common Visit Codes: [id number] INP/OBS CARE (HIGH) Secondary Visit Codes: [id number] CARE PLAN 30 MINUTES TULIO BOND RESIDENT May 07, 2025 13:16
[2025-05-07 14:58] VITALS: BP 159/87; PULSE 86; RESP 18; TEMP 98; O2SAT 95
--- NOTE | 2025-05-07 15:07 | DVH ---
INDICATION: RUQ pain TECHNIQUE: Multiple real-time sonographic images of the abdomen were obtained. COMPARISON: None FINDINGS: Hepatic parenchyma is heterogeneous and contains multiple cysts. Too numerous to count. Largest measures 7.1 x 6.1 x 5.3 cm. The liver measures 17.7 cm. No intrahepatic biliary ductal dilatation is noted. There are so many hepatic and renal cysts is difficult to distinguish gallbladder from the cysts. The right kidney measures 14.9 cm. No hydronephrosis. Multiple right renal cysts largest measures 5.2 x 4.8 by 4.5 cm The pancreas is not well visualized due to obscuration from bowel gas. The visualized portions of the IVC and aorta are grossly unremarkable. IMPRESSION: 1. Numerous hepatic cysts too numerous to count. 2. Numerous bilateral renal cysts largest on the right is 5.2 cm largest on the left is 4.1 cm.
[2025-05-07] MEDS: PANTOPRAZOLE 40 MG/10 ML VIAL INJ IV SCH (16:08)
[2025-05-07 16:11] LABS: INR 1.0 (0.9-1.15); Prothrombin Time 10.6 sec (9.3-11.8)
[2025-05-07 17:00] VITALS: BP 157/74; PULSE 83; RESP 18; TEMP 97.6; O2SAT 94
[2025-05-07] MEDS ORDERED: FERR1TAB31 PO (17:10)
[2025-05-07 20:00] VITALS: RESP 14
[2025-05-07 20:26] LABS: COVID19 ANTIGEN SOFIA FIA NEGATIVE (NEGATIVE)
[2025-05-07 21:00] VITALS: BP 162/90; PULSE 79; RESP 18; TEMP 97.4; O2SAT 95
[2025-05-08] VITALS (8 sets, daily range): BP systolic 144–167; BP diastolic 79–88; PULSE 66–71; RESP 18–20; TEMP 97.5–98.8; O2SAT 95–98
[2025-05-08 06:49] LABS: Hematocrit 34.5 % (41.0-53.0); Hemoglobin 11.5 g/dL (13.5-17.5); Mean Corpuscular Hemoglobin 28.8 pg (28.0-32.0); Mean Corpuscular Volume 86.4 fL (80.0-100.0); Nucleated Red Blood Cells % 0.1 %
[2025-05-08 07:02] LABS: Alanine Aminotransferase 17 U/L (7-40); Albumin 4.0 g/dL (3.2-4.8); Alkaline Phosphatase 80 U/L (46-116); Anion Gap 12 (5-15); BUN/Creatinine Ratio 11.9 (10.0-20.0); Bilirubin, Total 0.5 mg/dL (0.2-1.0); Blood Urea Nitrogen 15 mg/dL (9-23); Calcium 9.1 mg/dL (8.7-10.4); Carbon Dioxide 24 mmol/L (20-31); Potassium 3.7 mmol/L (3.5-5.1); Sodium 144 mmol/L (136-145); Total Protein 7.2 g/dL (5.7-8.2)
[2025-05-08 07:03] LABS: Chloride 108 mmol/L (98-107); Glucose 71 mg/dL (74-106)
[2025-05-08] MEDS: MORPHINE SULFATE INJ 2 MG/ml SYRG IV PRN (09:44)
[2025-05-08 16:04] LABS: Urine Protein, UAD 1+ (Negative)
--- NOTE | 2025-05-08 17:19 | DVHPN2 ---
Subjective Right upper quadrant pain is improved today. Tolerating clear liquid diet. Labs reviewed relatively stable. Patient is seen along with the nurse at bedside. Alpha fetoprotein tumor marker pending. Changes from previous H/P or p: No Changes Eyes: No Pain, No Vision change, No Conjunctivae inflammation, No Eyelid inflammation, No Other, No Redness ENT: No Ear pain, No Ear discharge, No Nose pain, No Nose discharge, No Nose congestion, No Mouth pain, No Mouth swelling, No Throat pain, No Throat swelling, No Other Cardiovascular: No Chest Pain, No Palpitations, No Orthopnea, No Paroxysmal Noc. Dyspnea, No Edema, No Lt Headedness, No Other Respiratory: No Cough, No Dry, No Shortness of breath, No SOB with excertion, No Wheezing, No Hemoptysis, No Pleuritic Pain, No Sputum, No Other Gastrointestinal: No Nausea, No Vomiting; Abdominal Pain; No Diarrhea, No Constipation, No Melena, No Hematochezia, No Other Genitourinary: No Dysuria, No Frequency, No Incontinence, No Hematuria, No Retention, No Other Musculoskeletal: No other, No neck pain, No shoulder pain, No arm pain, No back pain, No hand pain, No leg pain, No foot pain Skin: No Rash, No Lesions, No Jaundice, No Bruising, No Other Objective Vitals Vital Signs Date Time Temp Pulse Resp B/P (MAP) Pulse Ox O2 Delivery O2 Flow Rate FiO2 05/08/25 13:00 98.8 68 18 157/80 (105) 96 98.8 05/08/25 08:00 Room Air* 0 21 Intake/Output Intake and Output 05/08/25 07:00 Intake Total 0 ml Balance 0 ml Intake Oral 0 ml # Voids 1 Exam Pleasant gentleman alert awake oriented x3 comfortable in bed without distress. HEENT neck supple no JVD. Heart regular rate and rhythm S1-S2. Lungs fair air movement without rales wheezes. Abdomen soft nontender nondistended positive bowel sounds. Extremities no edema positive pulses. Medications Current Medications Medications Dose Ordered Sig/Manjit Route Start Time Stop Time Status Last Admin Dose Admin Sodium Chloride 1,000 ml @ 60 mls/hr [id number] IV 05/07/25 13:00 05/08/25 05:52 60 MLS/HR Ondansetron HCl 4 mg Q4HP PRN IV 05/07/25 13:00 Morphine Sulfate 2 mg Q4HPRN PRN IV 05/07/25 13:00 05/08/25 09:44 2 MG Nitroglycerin 0.4 mg Q5MINP PRN SL 05/07/25 13:00 Morphine Sulfate 2 mg Q30M PRN IV 05/07/25 13:00 Pantoprazole Sodium 40 mg DAILY IV 05/07/25 13:15 05/08/25 09:17 40 MG Amlodipine Besylate 10 mg DAILY PO 05/09/25 10:00 Lactulose 30 ml Q6HPRN PRN PO 05/08/25 16:30 Laboratory Results Laboratory Tests 05/08/25 04:45 Chemistry Test 05/08/25 04:45 Albumin 4.0 g/dL (3.2-4.8) Calcium Level 9.1 mg/dL (8.7-10.4) Total Protein 7.2 g/dL (5.7-8.2) LFT Test 05/08/25 04:45 Alanine Aminotransferase (ALT) 17 U/L (7-40) Alkaline Phosphatase 80 U/L (46-116) Aspartate Amino Transferase (AST) 21 U/L (13-40) Total Bilirubin 0.5 mg/dL (0.2-1.0) Urinalysis Test 05/08/25 15:44 Urine Color Yellow (Yellow) Urine Clarity Clear (Clear) Urine pH 5.5 (5.0-9.0) Urine Specific Dora 1.027 (1.001-1.035) Urine Protein 1+ (Negative) H Urine Ketones Trace (Negative) Urine Blood Negative /uL (Negative) Urine Nitrite Negative (Negative) Urine Bilirubin Negative (Negative) Urine Urobilinogen Normal mg/dL (Negative) Urine Leukocyte Esterase Negative /uL (Negative) Urine RBC 1 /hpf (0 - 3) Urine Microscopic WBC 1 /HPF (0-3) Urine Squamous Epithelial Cells Few /hpf (<5) Urine Bacteria None seen /hpf (None Seen) Urine Mucus Few (None Seen) Urine Glucose Normal mg/dL (Normal) Labs and/or images reviewed: Labs reviewed by me Assessment/Plan Assessment/Plan Patient has polycystic liver and kidney disease. Ultrasound CT of the abdomen showed numerous cysts in the liver as well as kidney. Continue Protonix IV. Continue clear liquid diet and advance as tolerated. Follow the labs in the morning. For his blood pressure we will add losartan twice a day to his regimen at home which he has amlodipine once a day. Otherwise monitor him overnight and his further clinical management per clinical course and recommendations from the consultants. Discussed with the patient and nurse at bedside regarding care plan. Plan discussed with: Patient, Other My Orders Orders - SERGIO MOORE MD Procedure Category Date Status Time Amlodipine Tablet PHA 05/09/25 In Process (Norvasc Tablet) 10:00 Clear Liq Diet DIET 05/08/25 Transmitted Dinner Lactulose Oral PHA 05/08/25 In Process 16:30 Problem List: (1) Polycystic kidney disease (2) Intractable abdominal pain (3) Generalized weakness (4) Hypertension Date of Service: May 08, 2025 Billing Provider: SERGIO MOORE MD Common Visit Codes: [id number] INP/OBS CARE(HIGH) SERGIO MOORE MD May 08, 2025 17:19
--- NOTE | 2025-05-08 20:59 | DVHINCON2 ---
Date of service: May 08, [address] Victoria Reason for Consultation Abdominal pain and polycystic liver disease History of Present Illness Mr. Pacheco, a 84-year-old male with a history of hypertension, chronic kidney failure, and anemia presents to the ED with right lower quadrant abdominal pain for one week. He reports a recent colonoscopy with polypectomy performed on April 11 after polyps were discovered. Pain is rated 5/10, worsens with inspiration, and has persisted without relief. He denies nausea, vomiting, diarrhea, weakness, dizziness, dysuria, fever, or chills. On arrival, patient is alert and oriented 4, ambulatory with steady gait, respirations even and unlabored on room air, and blood pressure elevated. No signs of distress noted. Colonoscopy was performed by nd last month on April 11, 2025 and patient had moderate scattered diverticular disease benign-appearing ascending colon polyps that were removed by cold biopsy forceps and a transverse colon polyp that was removed by hot snare polypectomy. Patient also had 2+ hemorrhoids Operative Report DATE OF OPERATION: 04/11/25 PROCEDURE: Colonoscopy with hot snare polypectomy. PREOPERATIVE INDICATION: The patient is a 84 -year-old male undergoing colonoscopy for surveillance with personal history of colon polyps and history of anemia POSTOPERATIVE DIAGNOSES: 1. 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 There were two less than 5 mm benign-appearing ascending colon polyps that were seen and removed by cold biopsy forceps 3. There was a 1.5 cm mid transverse colon polyp that was seen and removed by hot snare polypectomy and an adjacent smaller polyp was removed by cold biopsy forceps 4. There were two less than 5 mm benign-appearing sigmoid polyps were seen and removed completely via cold biopsy forceps 5. 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 Family History: Diabetes mellitus G8 MOTHER, Onset:40's - 50 G8 FATHER, Onset:40's - 50 Family History Family history: Unknown for PCKD, Reviewed,noncontributory to illness, Family hx of HTN . Social History Social history: Positive for smoking and Occasional alcohol previously. Currently lives at home with the . Independent for ADLs. Patient is a non- smoker, denies alcohol and drug use, and lives at home with . Allergies: Coded Allergies: NO KNOWN ALLERGIES (Unverified , 08/21/21) Home Meds Reported Medications Ferrous Gluconate (IRON) 27 Mg Tab, 325 MG PO DAILY, TAB 05/07/25 Ferrous Sulfate (FERROUS SULFATE) 325 Mg Tb, 325 MG PO DAILY, TAB 04/06/25 Amlodipine Besylate (Amlodipine Besylate) 10 Mg Tab, 1 TAB PO DAILY for 90 Days, #90 09/29/24 Simvastatin (Simvastatin) 20 Mg Tab, 1 TAB PO DAILY for 90 Days, #90 11/28/10 Current Medications Current Medications Medications (Trade) Dose Ordered Sig/Manjit Route PRN Reason Start Time Stop Time Status Last Admin Amlodipine Besylate (Norvasc Tablet) 10 mg DAILY PO 05/09/25 10:00 Lactulose 30 ml Q6HPRN PRN PO FOR CONSTIPATION 05/08/25 16:30 Losartan Potassium (Cozaar Tablet) 25 mg BID PO 05/08/25 22:00 Vital Signs Vital Signs Date Time Temp Pulse Resp B/P (MAP) Pulse Ox O2 Delivery O2 Flow Rate FiO2 05/08/25 17:00 97.8 71 20 144/88 (106) 96 97.8 05/08/25 08:00 Room Air* 0 21 Physical Exam Pleasant gentleman alert awake oriented x3 comfortable in bed without distress. HEENT neck supple no JVD. Heart regular rate and rhythm S1-S2. Lungs fair air movement without rales wheezes. Abdomen soft nontender nondistended positive bowel sounds. Extremities no edema positive pulses. Labs/Diagnostic Data Labs Test 05/08/25 15:44 05/08/25 04:45 05/07/25 18:50 05/07/25 15:17 Range/Units Urine Color Yellow Yellow Urine Clarity Clear Clear Urine pH 5.5 5.0-9.0 Urine Specific [place] 1.027 1.001-1.035 Urine Protein 1+ H Negative Urine Ketones Trace Negative Urine Blood Negative Negative /uL Urine Nitrite Negative Negative Urine Bilirubin Negative Negative Urine Urobilinogen Normal Negative mg/dL Urine Leukocyte Esterase Negative Negative /uL Urine RBC 1 0 - 3 /hpf Urine Microscopic WBC 1 0-3 /HPF Urine Squamous Epithelial Cells Few <5 /hpf Urine Bacteria None seen None Seen /hpf Urine Mucus Few None Seen Urine Glucose Normal Normal mg/dL White Blood Count 4.9 4.4-10.8 10^3/uL Red Blood Count 3.99 L 4.5-5.90 10^6/uL Hemoglobin 11.5 #L 13.5-17.5 g/dL Hematocrit 34.5 #L 41.0-53.0 % Mean Corpuscular Volume 86.4 80.0-100.0 fL Mean Corpuscular Hemoglobin 28.8 28.0-32.0 pg Mean Corpuscular Hemoglobin Concent 33.3 32.0-36.0 g/dL Red Cell Distribution Width 15.7 H 11.8-14.3 % Platelet Count 286 140-450 10^3/uL Mean Platelet Volume 7.7 6.9-10.8 fL Neutrophils (%) (Auto) 51.7 37.0-80.0 % Lymphocytes (%) (Auto) 29.2 10.0-50.0 % Monocytes (%) (Auto) 14.6 H 0.0-12.0 % Eosinophils (%) (Auto) 4.2 0.0-7.0 % Basophils (%) (Auto) 0.3 0.0-2.0 % Neutrophils # (Auto) 2.6 1.6-8.6 10 ^3/uL Lymphocytes # (Auto) 1.4 0.4-5.4 10 ^3/uL Monocytes # (Auto) 0.7 0-1.3 10 ^3/uL Eosinophils # (Auto) 0.2 0-0.8 10 ^3/uL Basophils # (Auto) 0 0-0.2 10 ^3/uL Nucleated Red Blood Cells 0.1 % Sodium Level 144 136-145 mmol/L Potassium Level 3.7 3.5-5.1 mmol/L Chloride Level 108 H 98-107 mmol/L Carbon Dioxide Level 24 20-31 mmol/L Anion Gap 12 5-15 Blood Urea Nitrogen 15 9-23 mg/dL Creatinine 1.26 0.700-1.30 mg/dL Glomerular Filtration Rate Calc 56 >90 mL/min BUN/Creatinine Ratio 11.9 10.0-20.0 Serum Glucose 71 L 74-106 mg/dL Calcium Level 9.1 8.7-10.4 mg/dL Total Bilirubin 0.5 0.2-1.0 mg/dL Aspartate Amino Transferase (AST) 21 13-40 U/L Alanine Aminotransferase (ALT) 17 7-40 U/L Alkaline Phosphatase 80 46-116 U/L Total Protein 7.2 5.7-8.2 g/dL Albumin 4.0 3.2-4.8 g/dL Influenza Type A Antigen Negative Negative Influenza Type B Antigen Negative Negative SARS-CoV-2 Antigen (Rapid) Negative NEGATIVE Prothrombin Time 10.6 9.3-11.8 sec Prothrombin Time INR 1.00 0.9-1.15 Test 05/07/25 13:36 05/07/25 09:30 Range/Units Lactic Acid Level 1.2 0.4-2.0 mmol/L Lipase 35 12-53 U/L Erythrocyte Sedimentation Rate 58 H 0-20 mm/hr C-Reactive Protein High Sensitivity 1.55 H <1.0 mg/dL Beta HCG, Quantitative 0.9 0-2 mIU/mL CT SCAN ABD PELVIS IMPRESSION: 1. Polycystic kidney and liver disease Liver USG IMPRESSION: 1. Numerous hepatic cysts too numerous to count. 2. Numerous bilateral renal cysts largest on the right is 5.2 cm largest on the left is 4.1 cm. 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
[2025-05-08] MEDS: LACTULOSE 20Gm/30ML SOLN PO PRN (22:00)
[2025-05-08] MEDS: LOSARTAN POTASSIUM 25 MG TAB PO SCH (22:00)
[2025-05-09 01:00] VITALS: BP 154/78; PULSE 62; RESP 18; TEMP 97.8; O2SAT 95
[2025-05-09 04:57] VITALS: BP 150/77; PULSE 64; RESP 18; TEMP 97.6; O2SAT 96
[2025-05-09 06:30] LABS: Alanine Aminotransferase 14 U/L (7-40); Albumin 3.9 g/dL (3.2-4.8); Alkaline Phosphatase 74 U/L (46-116); Anion Gap 10 (5-15); BUN/Creatinine Ratio 10.8 (10.0-20.0); Blood Urea Nitrogen 15 mg/dL (9-23); Calcium 8.9 mg/dL (8.7-10.4); Carbon Dioxide 27 mmol/L (20-31); Chloride 106 mmol/L (98-107); Glucose 78 mg/dL (74-106); Potassium 4.1 mmol/L (3.5-5.1); Sodium 143 mmol/L (136-145); Total Protein 6.9 g/dL (5.7-8.2)
[2025-05-09 06:31] LABS: Bilirubin, Total 0.5 mg/dL (0.2-1.0)
[2025-05-09 09:00] VITALS: BP 171/92; PULSE 70; RESP 18; TEMP 97.6; O2SAT 97
[2025-05-09] MEDS: ONDANSETRON HCL 4 MG/2 ML VIAL ONE (10:04)
[2025-05-09] MEDS: MORPHINE SULFATE 4 MG/ML SYR/VIAL ONE (10:04)
[2025-05-09] MEDS: PANTOPRAZOLE 40 MG/10 ML VIAL INJ IV ONE (10:06)
[2025-05-09 13:00] VITALS: BP 155/80; PULSE 75; RESP 17; TEMP 97.9; O2SAT 97
--- NOTE | 2025-05-09 14:22 | DVHPN2 ---
Progress Note Date Seen: May 09, 2025 Resident Creating Document: JOSE NEGRETE RESIDENT Medical Necessity Reason Pt with a Central, PICC or Fol: No Subjective Review of Systems Mr. Pacheco, a 84-year-old male with a history of hypertension, chronic kidney failure, and anemia presents to the ED with right lower quadrant abdominal pain for one week. He reports a recent colonoscopy with polypectomy performed on April 11 after polyps were discovered. Pain is rated 5/10, worsens with inspiration, and has persisted without relief. He denies nausea, vomiting, diarrhea, weakness, dizziness, dysuria, fever, or chills. On arrival, patient is alert and oriented 4, ambulatory with steady gait, respirations even and unlabored on room air, and blood pressure elevated. No signs of distress noted. Colonoscopy was performed by ri last month on April 11, 2025 and patient had moderate scattered diverticular disease benign-appearing ascending colon polyps that were removed by cold biopsy forceps and a transverse colon polyp that was removed by hot snare polypectomy. Patient also had 2+ hemorrhoids Operative Report DATE OF OPERATION: 04/11/25 PROCEDURE: Colonoscopy with hot snare polypectomy. PREOPERATIVE INDICATION: The patient is a 84 -year-old male undergoing colonoscopy for surveillance with personal history of colon polyps and history of anemia POSTOPERATIVE DIAGNOSES: 1. 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 There were two less than 5 mm benign-appearing ascending colon polyps that were seen and removed by cold biopsy forceps 3. There was a 1.5 cm mid transverse colon polyp that was seen and removed by hot snare polypectomy and an adjacent smaller polyp was removed by cold biopsy forceps 4. There were two less than 5 mm benign-appearing sigmoid polyps were seen and removed completely via cold biopsy forceps 5. One to 2+ slightly engorged internal hemorrhoids with hypertrophied anal papillae otherwise normal examination up to the cecum and terminal ileum 05/09-patient seen and examined. Abdomen nondistended, nontender, reports feeling better. Pathology report shows hyperplastic polyps in the ascending colon, transverse colon showing tubular adenoma and hyperplastic polyps, sigmoid colon shows tubulovillous adenoma and hyperplastic polyp Objective vital signs Vital Sign Date Time Temp Pulse Resp B/P (MAP) Pulse Ox O2 Delivery O2 Flow Rate FiO2 05/09/25 13:00 97.9 75 17 155/80 (105) 97 97.9 05/09/25 08:00 Room Air* 0 21 Total Intake and Output 05/08/25 05/08/25 05/09/25 15:00 23:00 07:00 Intake Total 600 ml 0 ml Output Total 700 ml 2 ml Balance -100 ml -2 ml medications Current Medications Medications Dose Ordered Sig/Manjit Route Start Time Stop Time Status Last Admin Dose Admin Ondansetron HCl 4 mg Q4HP PRN IV 05/07/25 13:00 Morphine Sulfate 2 mg Q4HPRN PRN IV 05/07/25 13:00 05/08/25 09:44 2 MG Nitroglycerin 0.4 mg Q5MINP PRN SL 05/07/25 13:00 Morphine Sulfate 2 mg Q30M PRN IV 05/07/25 13:00 Pantoprazole Sodium 40 mg DAILY IV 05/07/25 13:15 05/08/25 09:17 40 MG Amlodipine Besylate 10 mg DAILY PO 05/09/25 10:00 05/09/25 10:03 10 MG Lactulose 30 ml Q6HPRN PRN PO 05/08/25 16:30 05/08/25 22:00 30 ML Losartan Potassium 25 mg BID PO 05/08/25 22:00 05/09/25 10:03 25 MG Examination Patient lying in bed, in no acute distress General: Well-built, afebrile, palor, mucosae are moist Cardiovascular: Regular S1 and S2. No murmurs, gallops or rubs. No JVD elevation. No pedal edema Respiratory: Normal B/L air entry on room air. Clear lung sounds on auscultation Abdomen: Soft, nontender, nondistended, normoactive bowel sounds, no rebound tenderness, no organomegaly, no masses Genitourinary: Deferred MSK/skin: Mobilizes 4 limbs. Skin is dry and warm Neurological: No motor, no sensitive deficits, normal speech. Pupils are isocoric and reactive. Psych/Mental Status: A/Ox3 laboratory and microbiology Laboratory Tests 05/09/25 05:10 05/08/25 04:45 Test 05/09/25 05:10 Range/Units Serum Glucose 78 74-106 mg/dL Labs and/or images reviewed: Labs reviewed by me Problem List/Assessment/Plan Problem List/Assessment/Plan CT abdomen shows polycystic kidney and liver disease. Liver ultrasound shows numerous hepatic cysts too numerous to count, numerous bilateral renal cyst Intractable abdominal pain-resolving likely d/t cyst rupture Polycystic kidney disease Uncontrolled hypertension Anemia likely normocytic Acute kidney injury superimposed on CKD Plan: Recommendation: Bentyl PRN. Patient reports that the pain is getting better. Continue conservative management for now. Patient's condition less likely related to his recent colonoscopy. 04/12/2025 Pathology report shows hyperplastic polyps in the ascending colon, transverse colon showing tubular adenoma and hyperplastic polyps, sigmoid colon shows tubulovillous adenoma and hyperplastic polyp Could be a spontaneous rupture of 1 of the cysts that was causing the pain. Recommended stool softeners Recommended adequate control of blood pressure GI will follow up Thank you for consulting GI Plan discussed with the patient in which all questions have been answered Case discussed with Dr. Palacios Plan discussed with: Patient JOSE NEGRETE RESIDENT May 09, 2025 14:22
--- NOTE | 2025-05-09 15:05 | DVHDS2 ---
Discharge Summary Date of Admission May 07, 2025 at 13:00 Date of Discharge: May 09, 2025 Admitting Diagnosis Abdominal pain Labs/Diagnostic Data: Laboratory Results Test 05/09/25 05:10 05/08/25 15:44 05/08/25 04:45 05/07/25 18:50 Sodium Level 143 mmol/L (136-145) Potassium Level 4.1 mmol/L (3.5-5.1) Chloride Level 106 mmol/L (98-107) Carbon Dioxide Level 27 mmol/L (20-31) Anion Gap 10 (5-15) Blood Urea Nitrogen 15 mg/dL (9-23) Creatinine 1.39 mg/dL (0.700-1.30) Glomerular Filtration Rate Calc 50 mL/min (>90) BUN/Creatinine Ratio 10.8 (10.0-20.0) Serum Glucose 78 mg/dL (74-106) Calcium Level 8.9 mg/dL (8.7-10.4) Total Bilirubin 0.5 mg/dL (0.2-1.0) Aspartate Amino Transferase (AST) 24 U/L (13-40) Alanine Aminotransferase (ALT) 14 U/L (7-40) Alkaline Phosphatase 74 U/L (46-116) Total Protein 6.9 g/dL (5.7-8.2) Albumin 3.9 g/dL (3.2-4.8) Urine Color Yellow (Yellow) Urine Clarity Clear (Clear) Urine pH 5.5 (5.0-9.0) Urine Specific [place] 1.027 (1.001-1.035) Urine Protein 1+ (Negative) Urine Ketones Trace (Negative) Urine Blood Negative /uL (Negative) Urine Nitrite Negative (Negative) Urine Bilirubin Negative (Negative) Urine Urobilinogen Normal mg/dL (Negative) Urine Leukocyte Esterase Negative /uL (Negative) Urine RBC 1 /hpf (0 - 3) Urine Microscopic WBC 1 /HPF (0-3) Urine Squamous Epithelial Cells Few /hpf (<5) Urine Bacteria None seen /hpf (None Seen) Urine Mucus Few (None Seen) Urine Glucose Normal mg/dL (Normal) White Blood Count 4.9 10^3/uL (4.4-10.8) Red Blood Count 3.99 10^6/uL (4.5-5.90) Hemoglobin 11.5 g/dL (13.5-17.5) Hematocrit 34.5 % (41.0-53.0) Mean Corpuscular Volume 86.4 fL (80.0-100.0) Mean Corpuscular Hemoglobin 28.8 pg (28.0-32.0) Mean Corpuscular Hemoglobin Concent 33.3 g/dL (32.0-36.0) Red Cell Distribution Width 15.7 % (11.8-14.3) Platelet Count 286 10^3/uL (140-450) Mean Platelet Volume 7.7 fL (6.9-10.8) Neutrophils (%) (Auto) 51.7 % (37.0-80.0) Lymphocytes (%) (Auto) 29.2 % (10.0-50.0) Monocytes (%) (Auto) 14.6 % (0.0-12.0) Eosinophils (%) (Auto) 4.2 % (0.0-7.0) Basophils (%) (Auto) 0.3 % (0.0-2.0) Neutrophils # (Auto) 2.6 10 ^3/uL (1.6-8.6) Lymphocytes # (Auto) 1.4 10 ^3/uL (0.4-5.4) Monocytes # (Auto) 0.7 10 ^3/uL (0-1.3) Eosinophils # (Auto) 0.2 10 ^3/uL (0-0.8) Basophils # (Auto) 0 10 ^3/uL (0-0.2) Nucleated Red Blood Cells 0.1 % Influenza Type A Antigen Negative (Negative) Influenza Type B Antigen Negative (Negative) SARS-CoV-2 Antigen (Rapid) Negative (NEGATIVE) Test 05/07/25 15:17 05/07/25 13:36 05/07/25 09:30 Prothrombin Time 10.6 sec (9.3-11.8) Prothrombin Time INR 1.00 (0.9-1.15) Lactic Acid Level 1.2 mmol/L (0.4-2.0) Lipase 35 U/L (12-53) Erythrocyte Sedimentation Rate 58 mm/hr (0-20) C-Reactive Protein High Sensitivity 1.55 mg/dL (<1.0) Beta HCG, Quantitative 0.9 mIU/mL (0-2) Other Laboratory Tests 05/09/25 05:10 05/08/25 04:45 Brief Hx & Hospital Course: History of Present Illness Mr. Pacheco, a 84-year-old male with a history of hypertension, chronic kidney failure, and anemia presents to the ED with right lower quadrant abdominal pain for one week. He reports a recent colonoscopy with polypectomy performed on April 11 after polyps were discovered. Pain is rated 5/10, worsens with inspiration, and has persisted without relief. He denies nausea, vomiting, diarrhea, weakness, dizziness, dysuria, fever, or chills. On arrival, patient is alert and oriented 4, ambulatory with steady gait, respirations even and unlabored on room air, and blood pressure elevated (missed morning antihypertensive dose). No signs of distress noted. Course of hospitalization: GI consultation was obtained with abdominal pain being attributing to questionable rupture of cyst on liver from polycystic liver disease. Patient has no elevation in white blood cell count with vital signs normal other than essential hypertension. Today, patient was tolerating oral intake without any noted pain. He states that his pain to his right upper quadrant has resolved. Patient will be discharged home and is instructed to follow up with his established PCP appointment with Dr. May next week. He is instructed to continue all home medications as designated on his medication reconciliation form. Physical examination General: Alert and Oriented x3. No acute distress. Well-nourished. Eyes: EOMI. Anicteric. HENT: Moist mucous membranes. Lungs: Clear to auscultation bilaterally. No accessory muscle use. Cardiovascular: Regular rate and rhythm. No murmur. No JVD. Abdomen: Soft, non-tender and non-distended. No palpable masses. Extremities: No edema. Non-tender. Skin: No rashes or lesions. Warm. Neurologic: No focal neurological deficits. CN II-XII grossly intact, but not individually tested. Psychiatric: Cooperative. Appropriate mood and affect. Total time spent with patient discussing and formulating plan of care: 35 minutes. This medical document was created using an electronic medical record system with [employer] system. Although this document has been carefully reviewed, there may still be some phonetic and typographical errors. These areas are purely typographical due to imperfections of the software programs, and do not reflect any compromise in the patient's medical care. Condition at Discharge: Fair Final Diagnosis/Problems List Abdominal pain secondary to polycystic liver disease Accelerated hypertension Polycystic kidney and liver disease -chronic kidney disease stage IIIB -normocytic anemia Discharge Disposition: Home Discharge Instruct/Medications Diet: Cardiac 2g Na,low cholest Activity: No Restrictions, As Tolerated Follow Up/Referral: follow up with Dr. May at schedule appointment next week Medications: continue home medications per medication reconciliation from Scheduled Amlodipine Besylate (Amlodipine Besylate), 1 TAB PO DAILY, (Reported) Ferrous Gluconate (Iron), 325 MG PO DAILY, (Reported) Ferrous Sulfate (Ferrous Sulfate), 325 MG PO DAILY, (Reported) Simvastatin (Simvastatin), 1 TAB PO DAILY, (Reported) 36 Discharge Statement: "Patient was advised to return to the ER or call 911 if any headaches, dizziness, shortness of breath, chest pain, abdominal pain, bleeding, fevers, or worsening of medical condition. Patient was counseled about treatment plan, medications, possible side effects, patientverbalized understanding. All questions were answered to the best of my ability. This discharge took greater then 30 minutes in planning, reviewing documentation, counseling the patient, and discussing with other team members." ASSESSMENT ASSESSMENT Assessment Abdominal pain secondary to polycystic liver disease Date of Service: May 09, 2025 Billing Provider: BINH CARDENAS NP Common Visit Codes: 68740-XYH/OBS DISCH DAY >30min BINH CARDENAS NP May 09, 2025 15:05
[2025-05-09] MEDS: DICYCLOMINE HCL 10 MG CAP PO SCH (16:31)
[2025-05-09 17:00] VITALS: BP 155/97; PULSE 69; RESP 21; TEMP 97.4; O2SAT 97
== END 2025-05-09 18:30 | disposition home or self-care (01) | DRG 441 ==
LOC: ER 08:01 → OVERFLOW 13:00 → CENTRAL 18:27
PROVIDERS: ADMIT Nurse Practitioner Acute Care; ATTEND Nurse Practitioner Acute Care
DX: K76.89 Other specified diseases of liver (principal); N17.0 Acute kidney failure with tubular necrosis; D50.9 Iron deficiency anemia, unspecified; N18.32 Chronic kidney disease, stage 3b; I13.10 Hypertensive heart and chronic kidney disease without heart failure, with stage 1 through stage 4 chronic kidney disease, or unspecified chronic kidney disease; K76.0 Fatty (change of) liver, not elsewhere classified; Q61.3 Polycystic kidney, unspecified; Q44.6 Cystic disease of liver; Z20.822 Contact with and (suspected) exposure to COVID-19; N40.0 Benign prostatic hyperplasia without lower urinary tract symptoms; E78.5 Hyperlipidemia, unspecified; K57.30 Diverticulosis of large intestine without perforation or abscess without bleeding; K21.9 Gastro-esophageal reflux disease without esophagitis; M81.0 Age-related osteoporosis without current pathological fracture; M85.88 Other specified disorders of bone density and structure, other site; Z86.0100 Personal history of colon polyps, unspecified; Z82.49 Family history of ischemic heart disease and other diseases of the circulatory system; Z87.11 Personal history of peptic ulcer disease; Z83.3 Family history of diabetes mellitus; Z89.022 Acquired absence of left finger(s)
CPT/HCPCS: 36415; 74177; 76705; 80053; 81001; 82105; 83605; 83690; 84702; 85025; 85379; 85610; 85652; 86141; 87426; 87804; 93005; 96361; 96374; 96375; 99291; G0378; J2405; J2470